=== PATIENT | female | born 1930 | race Caucasian/White ===

== ENCOUNTER → 2016-05-18 | Outpatient (CLI) | payer MEDICARE ==
[~2016-05-18] MED LIST: ASPI-587 PO; BACL20TA PO; CALC625T PO; IMIP25TA2 PO; LUTE20TA PO; LVT.05T PO; METO25TA2 PO; MIRA25TA PO; MU-V1TAB28 PO; OMG1KC PO; RLX60T PO; SPIR1TAB3 PO; SULI200T4 PO; VIT A PO; [UNRECOGNIZED DRUG - CODE] PO; [UNRECOGNIZED DRUG - CODE] PO; [UNRECOGNIZED DRUG - OTHER] PO; stool softener PO
[2016-05-18 09:56] LABS: BASOPHILS # (AUTO) 0.1 10^3/uL (0.0-0.1); BASOPHILS % (AUTO) 1 % (0-10); EOSINOPHILS # (AUTO) 0.1 10^3/uL (0.0-0.3); EOSINOPHILS % (AUTO) 1 % (0-10); LYMPHOCYTES # (AUTO) 1.1 X 10^3 (1.0-4.0); LYMPHOCYTES % (AUTO) 10 % (12-44); MEAN CORPUSCULAR HEMOGLOBIN 31 PG (25-34); MEAN CORPUSCULAR HGB CONC 33 G/DL (32-36); MEAN CORPUSCULAR VOLUME 95 FL (80-99); MEAN PLATELET VOLUME 10.7 FL (7.4-10.4); MONOCYTES # (AUTO) 1.1 X 10^3 (0.0-1.0); MONOCYTES % (AUTO) 10 % (0-12); NEUTROPHILS # (AUTO) 8.8 X 10^3 (1.8-7.8); NEUTROPHILS % (AUTO) 79 % (42-75); PLATELET COUNT 214 10^3/uL (130-400); RED BLOOD COUNT 4.84 10^6/uL (4.35-5.85); RED CELL DISTRIBUTION WIDTH 13.8 % (10.0-14.5); WHITE BLOOD COUNT 11.1 10^3/uL (4.3-11.0)
[2016-05-18 10:36] LABS: ALANINE AMINOTRANSFERASE 22 U/L (0-55); ALBUMIN 3.9 G/DL (3.2-4.5); ANION GAP 10 MMOL/L (5-14); ASPARTATE AMINO TRANSFERASE 23 U/L (5-34); BLOOD UREA NITROGEN 33 MG/DL (7-18); BUN/CREATININE RATIO 31; CALCIUM 9.1 MG/DL (8.5-10.1); CARBON DIOXIDE 27 MMOL/L (21-32); CHLORIDE 105 MMOL/L (98-107); CREATININE SERUM 1.06 MG/DL (0.60-1.30); GFR ESTIMATED 49; GLUCOSE 99 MG/DL (70-105); POTASSIUM 4.3 MMOL/L (3.6-5.0); SODIUM 142 MMOL/L (135-145); TOTAL PROTEIN 6.6 G/DL (6.4-8.2)
[2016-05-18 10:42] LABS: TROPONIN I < 0.30 NG/ML (<0.30)
== END ==
LOC: CARD 09:35
PROVIDERS: ATTEND Nurse Practitioner Family
DX: R07.89 Other chest pain (principal)
CPT/HCPCS: 36415; 80053; 82553; 84484; 85025; 93005

== ENCOUNTER → 2016-06-11 | Outpatient (CLI) | payer MEDICARE ==
[2016-06-11 10:03] LABS: BASOPHILS % (AUTO) 0 % (0-10); EOSINOPHILS # (AUTO) 0.2 10^3/uL (0.0-0.3); EOSINOPHILS % (AUTO) 2 % (0-10); LYMPHOCYTES # (AUTO) 1.2 X 10^3 (1.0-4.0); LYMPHOCYTES % (AUTO) 12 % (12-44); MEAN CORPUSCULAR HEMOGLOBIN 31 PG (25-34); MEAN CORPUSCULAR HGB CONC 33 G/DL (32-36); MEAN CORPUSCULAR VOLUME 94 FL (80-99); MEAN PLATELET VOLUME 10.3 FL (7.4-10.4); MONOCYTES % (AUTO) 10 % (0-12); NEUTROPHILS # (AUTO) 7.7 X 10^3 (1.8-7.8); NEUTROPHILS % (AUTO) 76 % (42-75); PLATELET COUNT 225 10^3/uL (130-400); RED CELL DISTRIBUTION WIDTH 13.9 % (10.0-14.5); RETICULOCYTE % 1.66 % (0.50-2.40); WHITE BLOOD COUNT 10.2 10^3/uL (4.3-11.0)
[2016-06-11 10:20] LABS: PATH WILL NEED TO REVIEW SMEAR PATH TO REVIEW
[2016-06-11 10:31] LABS: BAND NEUTROPHILS 4 %; BASOPHILS % (MANUAL) 0 %; EOSINOPHILS % (MANUAL) 3 %; LYMPHOCYTES % (MANUAL) 11 %; NEUTROPHILS % (MANUAL) 73 %; REACTIVE LYMPHOCYTES 1 %
== END ==
LOC: LAB 09:45
PROVIDERS: ATTEND Family Medicine
DX: D72.829 Elevated white blood cell count, unspecified (principal); R74.8 Abnormal levels of other serum enzymes
CPT/HCPCS: 36415; 84075; 85007; 85027; 85045

== ENCOUNTER → 2016-06-18 | Outpatient (CLI) | payer MEDICARE ==
--- NOTE | 2016-06-18 13:45 | Diagnostic Imaging Report ---
EXAMINATION: DEXA scan. INDICATION: Osteopenia. TECHNIQUE: Bone mineral density estimated based on dual energy radiography over the lumbar spine and femoral necks, was performed. FINDINGS: The lumbar spine T-score is 0.8. T score is -1 obtained over both femoral necks. IMPRESSION: Osteopenia. Dictated by: Dictated on workstation # [id number]
== END ==
LOC: RAD 08:55
PROVIDERS: ATTEND Nurse Practitioner Family
DX: M81.0 Age-related osteoporosis without current pathological fracture (principal)
CPT/HCPCS: 77080

== ENCOUNTER → 2016-07-21 | Outpatient (CLI) | payer MEDICARE, BC ==
[~2016-07-21] MED LIST changes: +CATHETER FLUSH 10 ML SYR IV PRN
--- NOTE | 2016-07-21 13:45 | Diagnostic Imaging Report ---
EXAMINATION: Whole body bone scan. TECHNIQUE: After the intravenous administration of 26 mCi of Technetium 99m MDP, whole body delayed phase bone scan images were obtained with lateral views of the head, neck, and chest regions. INDICATION: Back pain. Sacral fracture. FINDINGS: There is an intense area of increased uptake in the anterior left side of the pelvis which corresponds to a deformity in the left pubic body seen on the concurrent CT scan, suggestive of a late subacute fracture. There is mild nonspecific increased radiotracer uptake seen in the sacral ala. This is equivocal for an underlying fracture. A sclerotic line is seen on the corresponding CT scan which may suggest an age-indeterminate insufficiency fracture. There is prominent eccentric mild to moderate intensity of increased activity seen in the left side aspect of the spine at the thoracolumbar junction. This appears to correlate with significant degenerative changes on the correlating CT scan. No pattern of uptake to suggest metastatic disease is noted. Urinary tract excretion is seen. IMPRESSION: 1. Late subacute fracture in the left pubic body. 2. Mild increased tracer uptake within the sacral ala is nonspecific. There is question of age indeterminate insufficiency fractures in the sacral ala without displacement based on the concurrent CT scan. Correlate clinically and with an MRI of the sacrum for better evaluation, if needed. Dictated by: Dictated on workstation # [id number]
== END ==
LOC: CARD 09:17
PROVIDERS: ATTEND Family Medicine
DX: S32.10XA Unspecified fracture of sacrum, initial encounter for closed fracture (principal); X58.XXXA Exposure to other specified factors, initial encounter
CPT/HCPCS: 78306

== ENCOUNTER → 2016-07-21 | Outpatient (CLI) | payer MEDICARE, BC ==
[~2016-07-21] MED LIST changes: +IOHEXOL 350 MG/ML 100 ML (OMNIPAQUE 350) VIAL IV ONE; +NS 100 ML (IVPB) BAG IV ONE
[2016-07-21 10:00] LABS: CREATININE SERUM 1.09 MG/DL (0.60-1.30)
--- NOTE | 2016-07-21 11:32 | Diagnostic Imaging Report ---
PROCEDURE: CT abdomen and pelvis with contrast. TECHNIQUE: Multiple contiguous axial images were obtained through the abdomen and pelvis after administration of intravenous contrast. INDICATION: Recurrent UTI. 100 mL of Omnipaque 350 is administered intravenously. FINDINGS: The lung bases appear clear. The liver demonstrates a nonspecific 9 mm hypodense lesion in the left hepatic lobe, too small to characterize. Cholecystectomy clips are seen. Minimal prominence of the CBD is noted, expected after cholecystectomy. Small duodenal diverticulum abutting the undersurface of the pancreatic head is seen. In the uncinate process of the pancreas, there is a 7 mm cystic lesion with no enhancing component suggested. The spleen is not enlarged. The adrenal glands appear unremarkable. The kidneys have symmetric enhancement and contrast excretion. There are bilateral simple appearing cysts in the kidneys up to 1.3 cm in the lower pole of the left kidney. No hydronephrosis. The abdominal aorta is normal in caliber. No para-aortic significantly enlarged lymph nodes seen. There is a right periumbilical fat-containing ventral hernia with associated defect measuring 2.4 cm in transverse dimension and 1.7 cm craniocaudally. IN THE PELVIS: There is an air-fluid level seen within the urinary bladder with thickening of the posterior bladder wall. There is an indeterminate collection with an air-fluid level seen within the posterior aspect of the urinary bladder eccentric to the left side measuring 3.3 x 1.5 x 1.7 cm. This is abutting the upper left side aspect of the vaginal cuff. It is containing mostly air with minimal amount of fluid. It is inseparable from adjacent thickening in the sigmoid colon. The sigmoid colon demonstrates numerous diverticulosis. There is slight thickening in the left lateral pelvic fat and minimally prominent lymph nodes along the left internal iliac chain. No free peritoneal fluid. This is probably sequela of diverticulitis episode. 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 The collection described above could be a sinus tract related to the fistula or less likely could possibly relate to a colovaginal fistula. The osseous structures demonstrate prominent degenerative changes and scoliotic curvature in the lumbar spine. 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 There is also an adjacent indeterminate small fluid collection abutting the upper left side aspect of the vaginal cuff, favored to be outside the vagina with mainly air and small amount of fluid. This could be sequela of a small abscess, sinus tract or less likely colovaginal fistula. Correlate clinically. The findings were discussed with Dr. Richter at time of dictation. Dictated by: Dictated on workstation # [id number]
== END ==
LOC: RAD 09:22
PROVIDERS: ATTEND Urology
DX: N39.0 Urinary tract infection, site not specified (principal)
CPT/HCPCS: 36415; 74177; 82565; 84520

== ENCOUNTER → 2016-09-03 | Outpatient (CLI) | payer MEDICARE, BC ==
[~2016-09-03] MED LIST changes: -CATHETER FLUSH 10 ML SYR IV PRN; -IOHEXOL 350 MG/ML 100 ML (OMNIPAQUE 350) VIAL IV ONE; -NS 100 ML (IVPB) BAG IV ONE
[2016-09-03 12:49] LABS: PEP REPORT SEE PATH REPORT
[2016-09-03 13:09] LABS: ALBUMIN 3.9 GM/DL (3.2-4.5); BILIRUBIN,TOTAL 1.6 MG/DL (0.1-1.0); CALCIUM 9.1 MG/DL (8.5-10.1); CREATININE SERUM 1.03 MG/DL (0.60-1.30); MAGNESIUM 1.7 MG/DL (1.8-2.4); POTASSIUM 4.3 MMOL/L (3.6-5.0); TOTAL PROTEIN 7.1 GM/DL (6.4-8.2)
[2016-09-04 06:52] LABS: VITAMIN D 25-HYDROXY (TOTAL) 45 ng/mL (30-100)
[2016-09-04 07:19] LABS: TP PEP U 37.0 H MG/DL (0.1-15.0)
== END ==
LOC: LAB 12:21
PROVIDERS: ATTEND Internal Medicine
DX: M81.0 Age-related osteoporosis without current pathological fracture (principal)
CPT/HCPCS: 36415; 80053; 82306; 83735; 84155; 84165; 84166

== ENCOUNTER 2017-05-28 17:00 | Outpatient (RCR) | payer MEDICARE, BC ==
[~2017-05-28 17:00] MED LIST changes: +ACYC400T PO; +CHOL500044 PO; +DESL5TAB PO; +LACT1CAP8 PO; +LEVO1CAP11 PO; +LEVO50TA6 PO; +METO-387 PO; +MIRA50TA PO; +PANT40TA3 PO; +RALO60TA12 PO; +TERI202.4P SC; +VIT1CAPS44 PO
[2017-06-04] MEDS ORDERED: TRIM100T PO (13:33)
[2017-06-04] MEDS ORDERED: EST30C VG (13:33)
[2017-06-04] MEDS ORDERED: CRAN450T9 PO (15:11)
[2017-06-04] MEDS ORDERED: NF-SOLIF5T PO (15:11)
[2017-06-04] MEDS ORDERED: ASCO-262 PO (15:11)
[2017-06-04] MEDS ORDERED: DOCU250C11 PO (15:11)
== END 2017-06-23 | disposition home or self-care (01) ==
LOC: CR3 17:00
PROVIDERS: ATTEND Family Medicine
DX: Z29.8 Encounter for other specified prophylactic measures (principal)

== ENCOUNTER 2017-06-04 13:19 | Observation (INO) | payer MEDICARE, BC ==
[~2017-06-04] VITALS: Ht 160 cm; Wt 58.7 kg
[2017-06-04] MEDS ORDERED: NS IV 1000 ML 1,000 ML IV SCH (13:30)
[2017-06-04] MEDS ORDERED: EST30C VG (13:33)
[2017-06-04] MEDS ORDERED: TRIM100T PO (13:33)
[2017-06-04 13:38] LABS: BASOPHILS % (AUTO) 0 % (0-10); EOSINOPHILS # (AUTO) 0.1 10^3/uL (0.0-0.3); EOSINOPHILS % (AUTO) 1 % (0-10); HEMATOCRIT 37 % (35-52); HEMOGLOBIN 12.2 G/DL (11.5-16.0); LYMPHOCYTES # (AUTO) 1.2 X 10^3 (1.0-4.0); LYMPHOCYTES % (AUTO) 12 % (12-44); MEAN CORPUSCULAR HEMOGLOBIN 27 PG (25-34); MEAN CORPUSCULAR HGB CONC 33 G/DL (32-36); MEAN CORPUSCULAR VOLUME 81 FL (80-99); MEAN PLATELET VOLUME 10.5 FL (7.4-10.4); MONOCYTES # (AUTO) 1.6 X 10^3 (0.0-1.0); MONOCYTES % (AUTO) 17 % (0-12); NEUTROPHILS # (AUTO) 6.7 X 10^3 (1.8-7.8); NEUTROPHILS % (AUTO) 70 % (42-75); PLATELET COUNT 237 10^3/uL (130-400); RED CELL DISTRIBUTION WIDTH 21.1 % (10.0-14.5); WHITE BLOOD COUNT 9.6 10^3/uL (4.3-11.0)
--- NOTE | 2017-06-04 13:39 | ED General ---
General Chief Complaint: General Problems/Pain Stated Complaint: URINARY ISSUES,DEHYDRATED Source of Information: Patient Exam Limitations: No Limitations History of Present Illness Date Seen by Provider: Jun 04, 2017 Time Seen by Provider: 13:35 Initial Comments Reduced urine output, poor renal function and high white blood cell count done yesterday at Dr. Richter's office. His office contacted the patient's primary care provider Dr. Macdonald who referred her to the emergency room, according to the patient. She denies fevers chills or dysuria. She states that she had a urine sample done in Dr. Richter's office yesterday and was told it was normal. She denies fevers or chills. She states that on Wednesday however (05/30/17) she did feel generally poorly but that seems to have resolved. She denies a cough shortness of breath or any pains, specifically no abdominal pain. 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 The patient's sister is with her and states that she seems a little confused so I cannot confirm the accuracy of these statements. Timing/Duration: 1-2 Days Severity: Moderate Associated Systoms: No Chest Pain, No Cough, No Diaphoresis, No Fever/Chills, No Headaches, No Loss of Appetite, No Malaise, No Nausea/Vomiting Allergies and Home Medications Allergies Coded Allergies: Penicillins (Verified Allergy, Unknown, 04/08/17) Sulfa (Sulfonamide Antibiotics) (Verified Allergy, Unknown, 04/08/17) celecoxib (Verified Allergy, Unknown, 04/08/17) oxybutynin (Verified Allergy, Unknown, 04/08/17) peanut (Verified Allergy, Unknown, 04/08/17) Home Medications Ascorbate Calcium 500 Mg Tablet, 500 MG PO 1800, (Reported) Baclofen 20 Mg Tablet, 20 MG PO 1800, (Reported) Cholecalciferol (Vitamin D3) 5,000 Unit Tablet, 5,000 UNIT PO 1800, (Reported) Cranberry Fruit 450 Mg Tablet, 450 MG PO BID, (Reported) Desloratadine 5 Mg Tablet, 10 MG PO DAILY, (Reported) Docusate Sodium 250 Mg Capsule, 250 MG PO DAILY PRN for CONSTIPATION-1ST LINE, ( Reported) Estrogens Conjugated 30 Gm Cr, 0.5 GM VG MoWeFr, (Reported) Lactobacillus Acidophilus 1 Each Capsule, 1 CAP PO 1800, (Reported) Levomefolate/B6/B12/Algal Oil 1 Each Capsule, 1 CAP PO BID, (Reported) Levothyroxine Sodium 50 Mcg Tablet, 50 MCG PO HS, (Reported) Metoprolol Succinate 25 Mg Tab.er.24h, 25 MG PO BID, (Reported) Mirabegron 50 Mg Tab.er.24h, 50 MG PO DAILY, (Reported) Pantoprazole Sodium 40 Mg Tablet.dr, 40 MG PO DAILY, (Reported) Raloxifene HCl 60 Mg Tablet, 60 MG PO DAILY, (Reported) Solifenacin Succinate 5 Mg Tablet, 5 MG PO HS, (Reported) Spironolact/Hydrochlorothiazid 1 Each Tablet, 1 TAB PO DAILY, (Reported) Sulindac 200 Mg Tablet, 200 MG PO BID WITH MEALS, (Reported) Teriparatide 600 Mcg/2.4 Ml Syr, 20 MCG SC DAILY, (Reported) Trimethoprim 100 Mg Tablet, 100 MG PO DAILY, (Reported) Vit C/E/Zn/Coppr/Lutein/Zeaxan 1 Each Capsule, 1 CAP PO BID, (Reported) Patient Home Medication List Home Medication List Reviewed: Yes Review of Systems Constitutional: see HPI; No chills, No fever EENTM: see HPI Respiratory: see HPI; No cough Gastrointestinal: No RUQ, No LUQ, No RLQ, No LLQ; no symptoms reported; No abdominal pain, No constipation, No diarrhea, No dysphagia, No hematemesis, No melena, No nausea, No vomiting Genitourinary: see HPI, decreased output; No dysuria; incontinence Musculoskeletal: no symptoms reported Skin: no symptoms reported Psychiatric/Neurological: No Symptoms Reported Hematologic/Lymphatic: No Symptoms Reported Past Nuliisu-Pffsiv-Tztpwe Hx Patient Social History Type Used: Cigarettes Recent Foreign Travel: No Contact w/Someone Who Travel: No Immunizations Up To Date Date of Pneumonia Vaccine: Nov 22, 2008 Date of Influenza Vaccine: Dec 23, 2016 Seasonal Allergies Seasonal Allergies: Yes Past Medical History Surgeries: Yes Abdominal, Bladder Surgery, Eye Surgery, Gallbladder, Hysterectomy, Orthopedic, Thyroidectomy Respiratory: No Cardiac: Yes Hypertension Neurological: No Genitourinary: Yes (colovesicular fistula) Bladder Infection Gastrointestinal: Yes Gastroesophageal Reflux Musculoskeletal: Yes Fractures Endocrine: Yes Hypothyroidsim HEENT: Yes Cataract Psychosocial: No Blood Disorders: Yes Adverse Reaction/Blood Tranf: No Family Medical History No Pertinent Family Hx Physical Exam Vital Signs Vital Signs - First Documented 06/04/17 13:25 Temp 96.6 Pulse 91 Resp 16 B/P (MAP) 120/81 (94) Pulse Ox 97 O2 Delivery Room Air Capillary Refill : General Appearance: No Apparent Distress, WD/WN, Other (Elderly appearing, alert, very talkative and pleasant and seems in no acute distress) Eyes: Bilateral Eye Normal Inspection, Bilateral Eye PERRL, Bilateral Eye EOMI HEENT: PERRL/EOMI, TMs Normal Neck: Full Range of Motion, Normal Inspection Respiratory: No Accessory Muscle Use, No Respiratory Distress Cardiovascular: Regular Rate, Rhythm, Normal Peripheral Pulses Gastrointestinal: Normal Bowel Sounds, Non Tender, Soft Extremity: Normal Capillary Refill, Normal Inspection Neurologic/Psychiatric: Alert, Oriented x3, No Motor/Sensory Deficits Skin: Normal Color, Warm/Dry Focused Exam Lactate Level 06/04/17 13:50: Lactic Acid Level 1.19 Lactic Acid Level Progress/Results/Core Measures Suspected Sepsis SIRS Temperature: Pulse: Respiratory Rate: Laboratory Tests 06/04/17 13:28: White Blood Count 9.6 Blood Pressure / Mean: 06/04/17 13:50: Lactic Acid Level 1.19 Laboratory Tests 06/04/17 13:28: Creatinine 2.02H, Platelet Count 237, Total Bilirubin 0.9 Results/Orders Lab Results Laboratory Tests Test 06/04/17 13:28 06/04/17 13:50 06/04/17 14:42 Range/Units White Blood Count 9.6 4.3-11.0 10^3/uL Red Blood Count 4.50 4.35-5.85 10^6/uL Hemoglobin 12.2 11.5-16.0 G/DL Hematocrit 37 35-52 % Mean Corpuscular Volume 81 80-99 FL Mean Corpuscular Hemoglobin 27 25-34 PG Mean Corpuscular Hemoglobin Concent 33 32-36 G/DL Red Cell Distribution Width 21.1 H 10.0-14.5 % Platelet Count 237 130-400 10^3/uL Mean Platelet Volume 10.5 H 7.4-10.4 FL Neutrophils (%) (Auto) 70 42-75 % Lymphocytes (%) (Auto) 12 12-44 % Monocytes (%) (Auto) 17 H 0-12 % Eosinophils (%) (Auto) 1 0-10 % Basophils (%) (Auto) 0 0-10 % Neutrophils # (Auto) 6.7 1.8-7.8 X 10^3 Lymphocytes # (Auto) 1.2 1.0-4.0 X 10^3 Monocytes # (Auto) 1.6 H 0.0-1.0 X 10^3 Eosinophils # (Auto) 0.1 0.0-0.3 10^3/uL Basophils # (Auto) 0.0 0.0-0.1 10^3/uL Erythrocyte Sedimentation Rate 38 H 0-30 MM/HR Sodium Level 132 L 135-145 MMOL/L Potassium Level 5.5 H 3.6-5.0 MMOL/L Chloride Level 102 98-107 MMOL/L Carbon Dioxide Level 18 L 21-32 MMOL/L Anion Gap 12 5-14 MMOL/L Blood Urea Nitrogen 51 H 7-18 MG/DL Creatinine 2.02 H 0.60-1.30 MG/DL Estimat Glomerular Filtration Rate 23 BUN/Creatinine Ratio 25 Glucose Level 121 H 70-105 MG/DL Calcium Level 8.9 8.5-10.1 MG/DL Total Bilirubin 0.9 0.1-1.0 MG/DL Aspartate Amino Transf (AST/SGOT) 30 5-34 U/L Alanine Aminotransferase (ALT/SGPT) 52 0-55 U/L Alkaline Phosphatase 182 H 40-136 U/L Total Protein 6.9 6.4-8.2 GM/DL Albumin 3.8 3.2-4.5 GM/DL Lactic Acid Level 1.19 0.50-2.00 MMOL/L Urine Color YELLOW Urine Clarity CLEAR Urine pH 6 5-9 Urine Specific [place] 1.010 L 1.016-1.022 Urine Protein NEGATIVE NEGATIVE Urine Glucose (UA) NEGATIVE NEGATIVE Urine Ketones NEGATIVE NEGATIVE Urine Nitrite NEGATIVE NEGATIVE Urine Bilirubin NEGATIVE NEGATIVE Urine Urobilinogen NORMAL NORMAL MG/DL Urine Leukocyte Esterase NEGATIVE NEGATIVE Urine RBC (Auto) 1+ H NEGATIVE Urine RBC 0-2 /HPF Urine WBC NONE /HPF Urine Squamous Epithelial Cells 0-2 /HPF Urine Crystals NONE /LPF Urine Bacteria NEGATIVE /HPF Urine Casts NONE /LPF Urine Mucus NEGATIVE /LPF Urine Culture Indicated NO My Orders Orders - MEGAN CHAKRABORTY PLAY READER Cbc With Automated Diff (06/04/17 13:30) Comprehensive Metabolic Panel (06/04/17 13:30) Blood Culture (06/04/17 13:30) Lactic Acid Analyzer (06/04/17 13:30) Ua Culture If Indicated (06/04/17 13:30) Chest Pa/Lat (2 View) (06/04/17 13:30) Ns Iv 1000 Ml (Sodium Chloride 0.9%) (06/04/17 13:30) Saline Lock/Iv-Start (06/04/17 13:59) Ekg Tracing (06/04/17 13:59) Ct Abdomen/Pelvis Wo (06/04/17 14:01) Erythrocyte Sedimentation Rate (06/04/17 14:10) Anti Streptolysin O Titer (06/04/17 14:10) Vital Signs/I&O 06/04/17 06/04/17 06/04/17 06/04/17 13:25 14:37 15:27 15:40 Temp 96.6 96.9 96.7 Pulse 91 77 66 77 Resp 16 16 18 18 B/P (MAP) 120/81 (94) 98/58 (71) 111/53 (71) 132/60 (84) Pulse Ox 97 96 99 99 O2 Delivery Room Air Room Air Room Air Room Air 06/04/17 06/04/17 06/04/17 06/04/17 16:35 17:32 19:00 19:50 Temp 98.2 Pulse 71 75 86 Resp 16 B/P (MAP) 132/60 (84) Pulse Ox 97 O2 Delivery Room Air Room Air Capillary Refill : Diagnostic Imaging Diagonstic Imaging: Xray Plain Films/CT/US/NM/MRI: chest Comments NAME: MIGUEL ZAVALA [facility] REC#: [id number] PT STATUS: REG ER : 1930 PHYSICIAN: MEGAN CHAKRABORTY APRN ADMIT DATE: 06/04/17/ER Draft Date of Exam:06/04/17 CHEST PA/LAT (2 VIEW) INDICATION: Dehydration, urinary incontinence. FINDINGS: The lungs are clear. The heart size and vascularity are within normal limits. There is no effusion or pneumothorax. IMPRESSION: Negative. Dictated on workstation # [id number] Dict: 06/04/17 1358 Trans: 06/04/17 1359 [id number] Interpreted by: JULIA WOODY Electronically signed by: Departure Communication (Admissions) 1400- I did receive a copy of labs from yesterday drawn. The macula. This shows a white blood cell count of 16.8, hemoglobin 12.1, 86% neutrophils. She also had a creatinine yesterday of 1.8, GFR of 28, BUN of 49. On the of this month, 3 days ago, creatinine was 1.0, GFR 57, BUN 25. She is on Aldactazide 25/25 mg daily Impression Primary Impression: Acute renal failure Disposition: ADMITTED INPATIENT Condition: Stable Admissions Decision to Admit Reason: Admit from ER (General) Decision to Admit/Date: Jun 04, 2017 Time/Decision to Admit Time: 15:00 Departure-Patient Inst. Referrals: JULIOCESAR MACDONALD DO (PCP/Family) Primary Care Physician MEGAN CHAKRABORTY APRN Jun 04, 2017 13:39
[2017-06-04 13:58] LABS: ALBUMIN 3.8 GM/DL (3.2-4.5); BILIRUBIN,TOTAL 0.9 MG/DL (0.1-1.0); CALCIUM 8.9 MG/DL (8.5-10.1); CREATININE SERUM 2.02 MG/DL (0.60-1.30); POTASSIUM 5.5 MMOL/L (3.6-5.0); TOTAL PROTEIN 6.9 GM/DL (6.4-8.2)
--- NOTE | 2017-06-04 14:00 | Diagnostic Imaging Report ---
INDICATION: Dehydration, urinary incontinence. FINDINGS: The lungs are clear. The heart size and vascularity are within normal limits. There is no effusion or pneumothorax. IMPRESSION: Negative. Dictated by: Dictated on workstation # [id number]
[2017-06-04 14:37] VITALS: BP 98/58
--- NOTE | 2017-06-04 14:37 | Diagnostic Imaging Report ---
PROCEDURE: CT abdomen and pelvis without contrast. TECHNIQUE: Multiple contiguous axial images were obtained through the abdomen and pelvis without the use of intravenous contrast. INDICATION: Decreased urinary output over 5 days despite fluid load, has history of long-standing urinary incontinence. Exam compared with study 07/21/2016. There is some fluid within the urinary bladder however the volume is relatively small and its clearly not distended. There is no abdominal pelvic ascites. No basilar pleural fluid and the visualized lower lobe showed no findings of edema. There is no evidence of edema or congestion of the abdominal pelvic subcutaneous fat nor the mesentery or retroperitoneal fat. The gallbladder is surgically absent. The spleen, adrenals and pancreas are unremarkable. There are no opaque urinary tract calculi. There is no perinephric or periureteric edema. There is no bowel obstruction and there was no focal inflammatory process. Uterus surgically absent. There is no adnexal lesion. No pneumatosis or free gas. IMPRESSION: No third space fluids, nondistended urinary bladder. No obstructive features, inflammatory process or acute abnormalities identified. Dictated by: Dictated on workstation # [id number]
[2017-06-04 14:53] LABS: BILIRUBIN,URINE NEGATIVE (NEGATIVE); CLARITY,URINE CLEAR; COLOR,URINE YELLOW; GLUCOSE, URINE (UA) NEGATIVE (NEGATIVE); KETONES,URINE NEGATIVE (NEGATIVE); LEUKOCYTE ESTERASE ,URINE NEGATIVE (NEGATIVE); NITRITE,URINE NEGATIVE (NEGATIVE); PH,URINE 6 (5-9); PROTEIN,URINE NEGATIVE (NEGATIVE); UROBILINOGEN,URINE NORMAL (NORMAL)
[2017-06-04 15:03] LABS: BACTERIA,URINE NEGATIVE /HPF; RBC,URINE 0-2 /HPF; SQUAMOUS EPITHELIAL CELL,UR 0-2 /HPF
[2017-06-04] MEDS ORDERED: DOCU250C11 PO (15:11)
[2017-06-04] MEDS ORDERED: ASCO-262 PO (15:11)
[2017-06-04] MEDS ORDERED: NF-SOLIF5T PO (15:11)
[2017-06-04] MEDS ORDERED: CRAN450T9 PO (15:11)
[2017-06-04 15:40] VITALS: BP 132/60
[2017-06-04] MEDS ORDERED: CATHETER FLUSH 10 ML SYR IV PRN (16:00)
[2017-06-04] MEDS: NS IV 1000 ML 1,000 ML IV SCH (16:12)
[2017-06-04 19:50] VITALS: BP 132/60
[2017-06-05] VITALS: BP 116/56
[2017-06-05] MEDS: NS IV 1000 ML 1,000 ML IV SCH ×2 (00:14→08:23)
[2017-06-05 04:00] VITALS: BP 117/59
[2017-06-05 06:14] LABS: BASOPHILS % (AUTO) 0 % (0-10); EOSINOPHILS # (AUTO) 0.3 10^3/uL (0.0-0.3); EOSINOPHILS % (AUTO) 4 % (0-10); HEMATOCRIT 32 % (35-52); HEMOGLOBIN 10.5 G/DL (11.5-16.0); LYMPHOCYTES % (AUTO) 14 % (12-44); MEAN CORPUSCULAR HEMOGLOBIN 27 PG (25-34); MEAN CORPUSCULAR HGB CONC 33 G/DL (32-36); MEAN CORPUSCULAR VOLUME 82 FL (80-99); MEAN PLATELET VOLUME 10.7 FL (7.4-10.4); MONOCYTES # (AUTO) 1.1 X 10^3 (0.0-1.0); MONOCYTES % (AUTO) 15 % (0-12); NEUTROPHILS # (AUTO) 4.6 X 10^3 (1.8-7.8); NEUTROPHILS % (AUTO) 66 % (42-75); PLATELET COUNT 212 10^3/uL (130-400); RED BLOOD COUNT 3.91 10^6/uL (4.35-5.85); RED CELL DISTRIBUTION WIDTH 21.6 % (10.0-14.5)
[2017-06-05 06:33] LABS: CALCIUM 8.2 MG/DL (8.5-10.1); CREATININE SERUM 1.17 MG/DL (0.60-1.30); POTASSIUM 5.3 MMOL/L (3.6-5.0)
[2017-06-05 08:00] VITALS: BP 114/64
--- NOTE | 2017-06-05 11:49 | Short Stay Summary-Hospitalist ---
History of Present Illness HPI/Chief Complaint The patient is an 86-year-old white female known to me for some years now. She presented to the emergency room yesterday with complaints of lethargy and mild confusion. She had been seen the day prior at Dr. Perez's office. He apparently performed a UA which she stated was negative. He also ran some chemistries which returned with abnormalities. He then spoke to Dr. Macdonald her primary care provider who referred her to the emergency room. 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 The patient's sister accompanied her to the emergency room and reported her to be a bit confused. She made it very clear that she was not willing to stay very long as she had a previously planned family trip to the [facility] and a mini liner trip down the [place] [facility] and [facility]. She states that she is feeling considerably better today. In the emergency room her laboratory showed a creatinine at 2.02 which is now declined with hydration to 1.17. Her potassium at presentation was 5.5 and is now 5.3 and her sodium was 132 and is now 136. She had a CT scan of the abdomen and pelvis which was negative. It is noted that she takes Aldactazide which may have had a part in both the hydration state and the potassium. Date Seen 06/05/17 Time Seen by Provider: 11:43 Attending Physician Jamel Guzman MD PCP Juliocesar Macdonald DO Referring Physician Date of Admission Jun 04, 2017 at 15:13 Home Medications & Allergies Home Medications Reviewed patient Home Medication Reconciliation performed by pharmacy medication reconciliations order entry technician and/or nursing. Patients Allergies have been reviewed. Allergies Allergies Coded Allergies Penicillins (Verified Allergy, Unknown, 04/08/17) Sulfa (Sulfonamide Antibiotics) (Verified Allergy, Unknown, 04/08/17) celecoxib (Verified Allergy, Unknown, 04/08/17) oxybutynin (Verified Allergy, Unknown, 04/08/17) peanut (Verified Allergy, Unknown, 04/08/17) Past Itpidwb-Lrntbi-Nfugdf Hx Past Med/Social Hx: Reviewed Nursing Past Med/Soc Hx Patient Social History Alcohol Use: Denies Use Recreational Drug Use: No Smoking Status: Current Someday Smoker Type Used: Cigarettes Physical Abuse Screen: No Sexual Abuse: No Recent Foreign Travel: No Contact w/other who traveled: No Recent Hopitalizations: No Recent Infectious Disease Expo: No Immunizations Up To Date Date of Pneumonia Vaccine: Nov 22, 2008 Date of Influenza Vaccine: Dec 23, 2016 Seasonal Allergies Seasonal Allergies: Yes Past Medical History Surgeries: Abdominal, Bladder Surgery, Eye Surgery, Gallbladder, Hysterectomy, Orthopedic, Thyroidectomy Cardiac: Hypertension : No Menopausal Genitourinary: Bladder Infection, Renal Failure Gastrointestinal: Gastroesophageal Reflux, Diverticulosis, Ulcer, Gall Bladder Disease Musculoskeletal: Fractures Endocrine: Hypothyroidsim HEENT: Cataract, Macular Degeneration History of Blood Disorders: Yes Adverse Reaction to Blood Rubio: No Family History No Pertinent Family Hx Review of Systems Constitutional: see HPI EENTM: hearing loss Respiratory: no symptoms reported Cardiovascular: no symptoms reported Gastrointestinal: no symptoms reported Genitourinary: no symptoms reported Musculoskeletal: muscle weakness Skin: no symptoms reported Psychiatric/Neurological: Weakness, Other (mild confusion admission) Physical Exam Physical Exam Vital Signs Vital Signs - First Documented 06/04/17 13:25 Temp 96.6 Pulse 91 Resp 16 B/P (MAP) 120/81 (94) Pulse Ox 97 O2 Delivery Room Air Capillary Refill : Less Than 3 Seconds General Appearance: No Apparent Distress, WD/WN Eyes: Bilateral Eye Normal Inspection HEENT: PERRL/EOMI, Normal ENT Inspection, Pharynx Normal Neck: Full Range of Motion, Normal Inspection, Non Tender, Supple, Carotid Bruit Respiratory: Chest Non Tender, Lungs Clear, Normal Breath Sounds, No Accessory Muscle Use, No Respiratory Distress Cardiovascular: Regular Rate, Rhythm, No Edema, No Gallop, No JVD, No Murmur, Normal Peripheral Pulses Back: Normal Inspection, No CVA Tenderness, No Vertebral Tenderness Extremity: Normal Capillary Refill, Normal Inspection, Normal Range of Motion, Non Tender, No Calf Tenderness, No Pedal Edema Neurologic/Psychiatric: Alert, Oriented x3, No Motor/Sensory Deficits, Normal Mood/Affect Skin: Normal Color, Warm/Dry Lymphatic: No Adenopathy Results Results/Procedures Labs Laboratory Tests 06/04/17 13:28 06/05/17 05:50 Patient resulted labs reviewed. Short Stay Diagnosis Discharge Diagnosis-Short Stay Admission Diagnosis 1.dehydration/hyperkalemia. 2.hypertension. Final Discharge Diagnosis 1.dehydration/hyperkalemia. 2.hypertension Conclusion Plan Return home with the present medications. Clinical Quality Measures DVT/VTE Risk/Contraindication: Risk Factor Score Per Nursin RFS Level Per Nursing on Admit: 2=Moderate Copy Copies To 1: JULIOCESAR MACDONALD RODNEY K MD Jun 05, 2017 11:49
[2017-06-05 12:00] VITALS: BP 146/70
--- NOTE | 2017-06-05 12:12 | Discharge Instructions ---
Discharge Instructions Patient Instructions Patient Instructions: Resume medications as listed on the discharge sequence. Touch base with your provider relative to the question of continuing your Aldactazide. Have a great time on your [place] Activity & Diet Discharge Diet: Eat Small Frequent Meals Activity as Tolerated: Yes ANIBAL ABRAHAM MD Jun 05, 2017 12:12
--- OUTSIDE RECORDS SUMMARY | 2017-06-06 07:51 | XMS REPORT | Continuity of Care Document ---
Author Author [employer] Organization [facility] Address Unknown Phone Unavailable Care Team Providers Care Career Development Counselor Name Role Phone [employer] Unavailable Unavailable Problems Medications Allergies, Adverse Reactions, Alerts Immunizations Results Vital Signs Encounters Location Location Details Encounter Type Encounter Number Reason For Visit Attending Provider ADM Date DC Date Status Source [place] SERIES [id number] SHERMAN COYLE 10/13/20162016 Active [facility] OUTPATIENT [id number] 10/19/2016 Active [facility] OUTPATIENT [id number] SHERMAN COYLE 10/21/20162016 Active [facility] OUTPATIENT [id number] HSERMAN COYLE 10/21/20162016 Active [facility] OUTPATIENT [id number] SHERMAN COYLE 11/06/2016 Active [facility] INPATIENT [id number] SHERMAN COYLE 11/13/20162016 Active [facility] OUTPATIENT [id number] SHERMAN COYLE 11/27/2016 Active [facility] INPATIENT [id number] ALLY KING 12/03/2016 12/10/2016 Active [facility] OUTPATIENT [id number] WILLA GLORIA 12/07/2016 Active [facility] OUTPATIENT [id number] WILLA GLORIA 12/21/20162016 Active [facility] SPECIMEN [id number] WILLA GLORIA 01/04/20172016 Active [facility] OP SURGERY [id number] DANA KAUR 03/02/20172017 Active [facility] SPECIMEN [id number] WILLA GLORIA 05/31/20172017 Active [facility] O WILLA GLORIA Active [facility] OP SURGERY [id number] DANA KAUR Active [facility] Procedures Plan of Care Social History Assessment and Plan Family History Advance Directives Functional Status
--- OUTSIDE RECORDS SUMMARY | 2017-06-06 07:51 | XMS REPORT | Clinical Summary ---
Author Author [facility] Organization [facility] Address Unknown Phone Unavailable Care Team Providers Care Power Press Supervisor Name Role Phone Boris Richter MD 21 Sathya Macdonald MD PCP Source Comments Some departments are not documenting in the electronic medical record. If you do not see the information that you expected, contact Release of Information in the Health Information Management department at [phone] for further assistance in locating additional records.[facility] Allergies Active Allergy Reactions Severity Noted Date Comments Celecoxib HIVES Medium 01/07/2015 Levofloxacin HIVES Medium 10/05/2016 Peanut HIVES Medium 10/05/2016 Penicillins HIVES Medium 10/05/2016 Sulfa (Sulfonamide HIVES Medium 10/05/2016 Antibiotics) Current Medications Prescription Sig. Disp. Refills Start End Date Status Date levothyroxine (SYNTHROID) Take 50 mcg by mouth at Active 50 mcg tablet bedtime daily. metoprolol XL (TOPROL XL) Take 25 mg by mouth twice Active 25 mg extended release daily. tablet raloxifene (EVISTA) 60 mg Take 60 mg by mouth daily Active tablet before breakfast. teriparatide(+) (FORTEO) Inject 20 mcg under the Active 20 mcg/dose - 600 mcg/2.4 skin daily. mL pnij injection pen desloratadine(+) Take 5 mg by mouth daily. Active (CLARINEX) 5 mg tablet Lacto.acidophilus-Bif.ani Chew 1 tablet by mouth at Active malis 2 billion cell chew bedtime daily. Docusate Sodium 250 mg Take 1 capsule by mouth Active cap daily. Vitamin A-Vitamin C-Vit Take 2 capsules by mouth Active E-Min (PRESERVISION daily. AREDS) cap Cholecalciferol (Vitamin Take 5,000 Units by mouth Active D3) 5,000 unit tab daily. pantoprazole DR Take 1 tablet by mouth 90 tablet 1 10/29/19 Active (PROTONIX) 40 mg tablet twice daily. 17 spironolactone-hydrochlor Take 1 tablet by mouth Active othiazide (ALDACTAZIDE) every morning. 25-25 mg tablet sulindac (CLINORIL) 200 Take 200 mg by mouth Active mg tablet twice daily. Take with food. mirabegron(+) ER Take 1 tablet by mouth 90 tablet 3 01/22/20 Active (MYRBETRIQ) 50 mg daily. Indications: 17 tabletIndications: BLADDER HYPERACTIVITY BLADDER HYPERACTIVITY Cranberry Extract Take by mouth. Active (CRANBERRY CONCENTRATE) 500 mg cap VIT A/VIT C/VIT Take by mouth. Active E/ZINC/COPPER (PRESERVISION AREDS PO) estrogen (PREMARIN) 25mg Apply 3 drops into nose Active in NS 30mL nasal drops as directed three times daily. solifenacin(+) (VESICARE) Take 5 mg by mouth daily. Active 5 mg tablet trimethoprim (TRIMPEX) Take 100 mg by mouth at Active 100 mg tablet bedtime daily. MECOBALAMIN/L-MEFOLATE/B6 Take by mouth. Active PHOS (METANX PO) CEPHALEXIN PO Take by mouth. Active baclofen (LIORESAL) 20 mg Take 20 mg by mouth Active tablet daily. nystatin (MYCOSTATIN) Apply topically to 15 g 1 11/07/19 06/01/19 Discontin 100,000 unit/g topical affected area as Needed 17 18 ued cream (BID and PRN to perineum PRN after BM/void). acetaminophen (TYLENOL) Take 1,000 mg by mouth 06/01/19 Discontin 500 mg tablet every 4 hours as needed 18 ued for Pain. Max of 4,000 mg of acetaminophen in 24 hours. diphenhydrAMINE Take 1 capsule by mouth 30 capsule 12/11/19 06/01/19 Discontin (BENADRYL) 25 mg capsule at bedtime as needed. 17 18 ued potassium chloride SR Take 2 tablets by mouth 90 tablet 3 12/11/19 06/01/19 Discontin (K-DUR) 20 mEq tablet daily. Take with a meal 17 18 ued and a full glass of water. MELATONIN PO Take 5 mg by mouth. 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 Not consistent with recurrent fistula, but more consistent with preoperative voiding issues. -- 03/01/17: Improvement in symptoms of urgency and urge incontinence with Mirabegron 50 mg. Ms. Clarke is not interested in additional therapies at this time. -- 05/31/17: Difficult historian. Symptoms globally consistent. LUTS/Mixed urinary incontinence being managed by Dr. Richter. --> Pt will likely benefit from UDS, but will leave this to discretion of Dr. Richter. L ast Assessment & Plan: Mrs Clarke is 86F w/ a complex urologic hx to include both colovaginal and vaginovesical fistula repairs. She continue endorse bothersome PAZ of unknown etiology. A fistula recurrence is unlikely as prior cystograms have been negative. Her bladder was notably of small volume, and this is may in part be a source of her ongoing complaints. UDS may be insightful but she has declined additional studies at this institution. Of note, she is actively considering a urethral sling to treat her stress incontinence. Post void residual today normal. UCx sent to r/o infection as a source of urgency/incontinence -- Recommending UDS prior to additional treatments; her preference is to obtain future studies w/ Dr. 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 Cesar Howe Hydrodistention, suprapubic catheter, mariel bladder neck suspension, anterior posterior repair, vaginal apical repair, bilateral sacral spinalis fixation November 28, 2009-Maame Jimenez-Dr. Cesar Howe Recurrent prolapse Transabdominal suspension vagina and enterocelectomy, bowel injury-repaired L ast Assessment & Plan: Pelvic exam October 05, 2016-no prolapse noted Defer pessary at this time secondary to fistula and large volume of stool leakage Diverticulitis of intestine 10/08/2016 Last Assessment & Plan: Referred to Dr Leon for management FU with after consultation with Dr Leon Vaginal atrophy 10/08/2016 Last Assessment & Plan: Recommend estrace cream ~ reviewed application and handout given Avoid douching Mixed urge and stress incontinence 10/08/2016 Overview: Wearing 10 pads/day Last Assessment & Plan: Hold on OAB medications at this time Continue Keflex 250mg QD for now Fistula 10/08/2016 Overview: Large volume stool leakage from vagina L ast Assessment & Plan: Refer to Dr Leon Resolved Problems Problem Noted Date Resolved Date Melena 10/21/2016 10/28/2016 Overview: Added automatically from request for surgery [id number] Encounters Date Type Specialty Care Team Description 06/03/2017 Telephone Urology Darvin Swenson MD Results 06/03/2017 Orders Only Urology Darvin Swenson MD Gross hematuria ( Primary Dx) 05/31/2017 Hospital Lab Darvin Swenson MD Unspecified urinary Encounter incontinence 05/31/2017 Office Visit Urology Darvin Swenson MD Urinary incontinence, unspecified type (Primary Dx); Colovesical fistula from Last 3 Months Family History Medical History Relation Name Comments Cancer Brother Kidney Cancer Brother Heart Attack Father Cancer Mother Diabetes Mother Hypertension Mother Cancer Sister Relation Name Status Comments Brother Father Mother Sister Social History Tobacco Use Types Packs/Day Years Used Date Former Smoker Cigarettes 1 46 Quit: 06/05/1998 Smokeless Tobacco: Never Used Alcohol Use Drinks/Week oz/Week Comments Yes 1 Glasses of 1.8 2 drinks a week wine 2 Standard drinks or equivalent Sex Assigned at Date Recorded Not on file Last Filed Vital Signs Vital Sign Reading Time Taken Blood Pressure 103/64 05/31/2017 1:27 PM CDT Pulse 87 05/31/2017 1:27 PM CDT Temperature 36.6 C (97.9 F) 03/02/2017 3:15 PM 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 Respiratory Rate 16 11/27/2016 12:43 PM CDT Oxygen Saturation 94% 03/02/2017 3:35 PM 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 Inhaled Oxygen - - Concentration Weight 60 kg (132 lb 3.2 oz) 05/31/2017 1:27 PM CDT Height 161.3 cm (5' 3.5") 05/31/2017 1:27 PM CDT Body Mass Index 23.05 05/31/2017 1:27 PM CDT Plan of Treatment Health Maintenance Due Date Last Done Comments PHYSICAL (COMPREHENSIVE) 09/23/1938 EXAM PERTUSSIS VACCINE 09/23/1942 TETANUS VACCINE 09/23/1948 SHINGLES VACCINE 1991 OSTEOPOROSIS SCREENING 09/23/1996 PREVNAR/PNEUMOVAX (#1) 09/23/1996 INFLUENZA VACCINE 11/22/2017 Implants Implanted Type Area Merchandise Support Associate Device Expiration Model / Identifier Date Serial / Lot Device Closure 70cm 6fr Angio-Seal Right: [facility] [employer] 07/22/2017 [id number] / Vip .035in Vascular - Sn/A Femoral N/A / Implanted: Qty: 1 on 10/22/2016 by Artery [id number] Anton Joseph MD Stent Ureteral 6fr 26cm Pigtail N/A: [employer] 09/16/2019 [id number] Curve Taper Tip Bladder Theodore - Ureter SCIENTIFIC 0 / [id number] UROLOGY [id number] Implanted: Qty: 1 on 11/13/2016 by Lara / Darvin Swenson MD [id number] Stent Ureteral 6fr 26cm Pigtail N/A: [employer] 08/24/2019 [id number] Curve Taper Tip Bladder Theodore - Ureter SCIENTIFIC 0 / [id number] UROLOGY [id number] Implanted: Qty: 1 on 11/13/2016 by Darvin Ahumada MD [id number] Results * CULTURE-URINE W/SENSITIVITY (05/31/2017 3:48 PM) Component Value Ref Range Battery Name URINE CULTURE Specimen Description URINE, CLEAN CATCH Special Requests NONE Culture 3 OR MORE ORGANISMS PRESENT,INDICATING CONTAMINATION. PLEASE SUBMIT ANOTHER SPECIMEN. Report Status FINAL 06/02/2017 Specimen Performing Laboratory Urine - Urine,Clean Catch MAIN LAB [address] [place] [address] from Last 3 Months
--- OUTSIDE RECORDS SUMMARY | 2017-06-06 07:52 | XMS REPORT | Encounter Summary ---
Author Author [facility] Organization [facility] Address Unknown Phone Unavailable Care Team Providers Care Corporate Relations Director Name Role Phone Boris Richter MD 21 Sathya Macdonald MD PCP Reason for Visit * Reason Comments Urinary Incontinence Encounter Details Date Type Department Care Team Description 05/31/2017 Office Visit [facility] Darvin Swenson MD Urinary incontinence, Physicians - Urology [address] unspecified type (Primary 2ND FLOOR POD A [address] Dx); [address] [place] [address] Colovesical fistula OFFICE BL [phone] [place] [address] Social History Tobacco Use Types Packs/Day Years Used Date Former Smoker Cigarettes 1 45 Quit: 06/05/1998 Smokeless Tobacco: Never Used Alcohol Use Drinks/Week oz/Week Comments Yes 1 Glasses of 1.8 2 drinks a week wine 2 Standard drinks or equivalent Sex Assigned at Date Recorded Not on file as of this encounter Last Filed Vital Signs Vital Sign Reading Time Taken Blood Pressure 103/64 05/31/2017 1:27 PM CDT Pulse 87 05/31/2017 1:27 PM CDT Temperature - - Respiratory Rate - - Oxygen Saturation - - Inhaled Oxygen - - Concentration Weight 60 kg (132 lb 3.2 oz) 05/31/2017 1:27 PM CDT Height 161.3 cm (5' 3.5") 05/31/2017 1:27 PM CDT Body Mass Index 23.05 05/31/2017 1:27 PM CDT in this encounter Functional Status Functional Status Response Date of Assessment Does the patient have a hearing impairment: No 12/03/2016 Does the patient have a visual impairment: No 12/10/2016 Does the patient have impaired ambulation: No 12/10/2016 Does the patient have an activity of daily living No 12/10/2016 (ADL) impairment: Does the patient have an instrumental activity of No 12/10/2016 daily living (IADL) impairment: Cognitive Status Response Date of Assessment Does the patient have a cognitive impairment: No 12/10/2016 as of this encounter Miscellaneous Notes * Assessment & Plan Note - Janak Montiel MD - 05/31/2017 4:36 PM CDT Associated Problem(s): Colovesical fistula Mrs Clarke is 86F w/ a complex [...] prescribe abx as indicated -- RTC PRN in this encounter Plan of Treatment Name Priority Associated Diagnoses Order Schedule URODYNAMIC STUDIES Routine Urinary incontinence, Ordered: 05/31/2017 unspecified type as of this encounter Results * CULTURE-URINE W/SENSITIVITY (05/31/2017 3:48 PM) Component Value Ref Range Battery Name URINE CULTURE Specimen Description URINE, CLEAN CATCH Special Requests NONE Culture 3 OR MORE ORGANISMS PRESENT,INDICATING CONTAMINATION. PLEASE SUBMIT ANOTHER SPECIMEN. Report Status FINAL 06/02/2017 Specimen Performing Laboratory Urine - Urine,Clean Catch MAIN LAB [address] [place] [address] in this encounter Visit Diagnoses Diagnosis Urinary incontinence, unspecified type - Primary Colovesical fistula Intestinovesical fistula
--- OUTSIDE RECORDS SUMMARY | 2017-06-06 07:52 | XMS REPORT | Encounter Summary ---
Author Author [facility] Organization [facility] Address Unknown Phone Unavailable Care Team Providers Care Scrap Sawyer Name Role Phone Boris Richter MD 21 Sathya Macdonald MD PCP Reason for Visit * Reason Comments Results Encounter Details Date Type Department Care Team Description 06/03/2017 Telephone [facility] Darvin Swenson MD Results Physicians - Urology [address] [facility] 2ND FLOOR POD A [address] [facility] [place] [address] OFFICE BLDG [phone] [place] [address] Social History Tobacco Use Types Packs/Day Years Used Date Former Smoker Cigarettes 1 46 Quit: 06/05/1998 Smokeless Tobacco: Never Used Alcohol Use Drinks/Week oz/Week Comments Yes 1 Glasses of 1.8 2 drinks a week wine 2 Standard drinks or equivalent Sex Assigned at Date Recorded Not on file as of this encounter Functional Status Functional Status Response [...] as of this encounter Miscellaneous Notes * Telephone Encounter - Vitaly Aldana LPN - 06/03/2017 8:34 AM CDT Spoke with pt and informed her of needing another specimen. She stated she is seeing her urologist today and will have him do it. He will fax over results. * Telephone Encounter - Vitaly Aldana LPN - 06/03/2017 8:33 AM CDT ----- Message from Darvin Swenson MD sent at 06/02/2017 10:05 PM CDT ----- Vitaly, Please let Ms. Clarke know the her urine culture was contaminated. She will need to collect another specimen locally. Thanks. DD in this encounter Plan of Treatment Not on fileas of this encounter Visit Diagnoses Not on filein this encounter
--- OUTSIDE RECORDS SUMMARY | 2017-06-06 07:52 | XMS REPORT | Encounter Summary ---
Author Author [facility] Organization [facility] Address Unknown Phone Unavailable Care Team Providers Care Estimator Jewelry Name Role Phone Boris Richter MD 21 Sathya Macdonald MD PCP Encounter Details Date Type Department Care Team Description 05/31/2017 [facility] Darvin Swenson MD Unspecified urinary Encounter [address] [place] [address] [address] [place] [address] [phone] Social History Tobacco Use Types Packs/Day Years [...] impairment: No 12/10/2016 as of this encounter Medications at Time of Discharge Medication Sig. Disp. Refills Start Date End Date baclofen (LIORESAL) 20 mg Take 20 mg by mouth tablet daily. CEPHALEXIN PO Take by mouth. Cholecalciferol (Vitamin Take 5,000 Units by mouth D3) 5,000 unit tab daily. Cranberry Extract Take by mouth. (CRANBERRY CONCENTRATE) 500 mg cap desloratadine(+) Take 5 mg by mouth daily. (CLARINEX) 5 mg tablet Docusate Sodium 250 mg Take 1 capsule by mouth cap daily. estrogen (PREMARIN) 25mg Apply 3 drops into nose in NS 30mL nasal drops as directed three times daily. Lacto.acidophilus-Bif.ani Chew 1 tablet by mouth at malis 2 billion cell chew bedtime daily. levothyroxine (SYNTHROID) Take 50 mcg by mouth at 50 mcg tablet bedtime daily. MECOBALAMIN/L-MEFOLATE/B6 Take by mouth. PHOS (METANX PO) metoprolol XL (TOPROL XL) Take 25 mg by mouth twice 25 mg extended release daily. tablet mirabegron(+) ER Take 1 tablet by mouth 90 tablet 3 01/21/2017 (MYRBETRIQ) 50 mg daily. Indications: tabletIndications: BLADDER HYPERACTIVITY BLADDER HYPERACTIVITY pantoprazole DR Take 1 tablet by mouth 90 tablet 1 10/28/2016 (PROTONIX) 40 mg tablet twice daily. raloxifene (EVISTA) 60 mg Take 60 mg by mouth daily tablet before breakfast. solifenacin(+) (VESICARE) Take 5 mg by mouth daily. 5 mg tablet spironolactone-hydrochlor Take 1 tablet by mouth othiazide (ALDACTAZIDE) every morning. 25-25 mg tablet sulindac (CLINORIL) 200 Take 200 mg by mouth mg tablet twice daily. Take with food. teriparatide(+) (FORTEO) Inject 20 mcg under the 20 mcg/dose - 600 mcg/2.4 skin daily. mL pnij injection pen trimethoprim (TRIMPEX) Take 100 mg by mouth at 100 mg tablet bedtime daily. VIT A/VIT C/VIT Take by mouth. E/ZINC/COPPER (PRESERVISION AREDS PO) Vitamin A-Vitamin C-Vit Take 2 capsules by mouth E-Min (PRESERVISION daily. AREDS) cap as of this encounter Plan of Treatment Not on fileas of this encounter Results * CULTURE-URINE W/SENSITIVITY (05/31/2017 3:48 PM) Component Value Ref Range Battery Name URINE CULTURE Specimen Description URINE, CLEAN CATCH Special Requests NONE Culture 3 OR MORE ORGANISMS PRESENT,INDICATING CONTAMINATION. PLEASE SUBMIT ANOTHER SPECIMEN. Report Status FINAL 06/02/2017 Specimen Performing Laboratory Urine - Urine,Clean Catch [facility] MAIN LAB [address] [place] [address] in this encounter Visit Diagnoses Diagnosis Urinary incontinence, unspecified type Admitting Diagnoses Diagnosis Unspecified urinary incontinence
--- OUTSIDE RECORDS SUMMARY | 2017-06-06 07:52 | XMS REPORT | Encounter Summary ---
Author Author [facility] Organization [facility] Address Unknown Phone Unavailable Care Team Providers Care Edger Automatic Name Role Phone Boris Richter MD 21 Sathya Macdonald MD PCP Encounter Details Date Type Department Care Team Description 06/03/2017 Orders Only [facility] Darvin Swenson MD Gross hematuria (Primary Physicians - Urology [address] Dx) 2ND FLOOR POD A [address] [place] [address] OFFICE BLDG [phone] [place] [address] Social History Tobacco Use Types [...] impairment: No 12/10/2016 as of this encounter Plan of Treatment Name Priority Associated Diagnoses Order Schedule CULTURE-URINE W/SENSITIVITY Routine Gross hematuria Expected: 06/03/2017 , Expires: 06/03/2018 as of this encounter Visit Diagnoses Diagnosis Gross hematuria - Primary
--- OUTSIDE RECORDS SUMMARY | 2017-06-06 07:53 | XMS REPORT | Continuity of Care Document ---
Author Author [facility] Organization [facility] Address Unknown Phone Unavailable Care Team Providers Care Manager Social Responsibility Name Role Phone [employer] Unavailable Unavailable Problems Medications Allergies, Adverse Reactions, Alerts Immunizations Results Vital Signs Encounters Location Location Details Encounter Type Encounter Number Reason For Visit Attending Provider ADM Date DC Date Status Source CA SERIES [id number] SHERMAN COYLE 10/13/20162016 Active [facility] OUTPATIENT [id number] 10/19/2016 Active [facility] OUTPATIENT [id number] SHERMAN COYLE 10/21/20162016 Active [facility] OUTPATIENT [id number] SHERMAN COYLE 10/21/20162016 Active [facility] OUTPATIENT [id number] SHERMAN COYLE 11/06/2016 Active [facility] INPATIENT [id number] SHERMAN COYLE 11/13/20162016 Active [facility] OUTPATIENT [id number] SHERMAN COYLE 11/27/2016 Active [facility] INPATIENT [id number] ALLY KING 12/03/2016 12/10/2016 Active [facility] OUTPATIENT [id number] WILLA GLORIA 12/07/2016 Active [facility] OUTPATIENT [id number] WILLA GLORIA 12/21/20162016 Active [facility] SPECIMEN [id number] WILLA GLORIA 01/04/20172016 Active [facility] OP SURGERY [id number] DANA KAUR 03/02/20172017 Active [facility] SPECIMEN [id number] WILLA GLORIA 05/31/20172017 Active [facility] O WILLA GLORIA Active [facility] OP SURGERY [id number] DANA KAUR Active [facility] Procedures Plan of Care Social History Assessment and Plan Family History Advance Directives Functional Status
--- OUTSIDE RECORDS SUMMARY | 2017-06-06 07:53 | XMS REPORT | Continuity of Care Document ---
Author Author [facility] Organization [facility] Address Unknown Phone Unavailable Allergies Active Description Code Type Severity Reaction Onset Reported/Identified Relationship to Patient Clinical Status Yes CeleBREX Drug N/A hives Yes Levaquin Drug N/A Hives Yes Levaquin Drug N/A N/A Yes Peanuts Food N/A Itching Yes Peanuts Food N/A N /A Yes penicillin Drug N/A hives Yes sulfADIAZINE Drug N/A hives Yes CeleBREX Drug N/A hives Yes Levaquin Drug N/A Hives Yes Peanuts Food N/A Itching Yes penicillin Drug N/A hives Yes sulfADIAZINE Drug N/A hives Yes PCN PCN Unknown N/ A 08/22/2013 Yes PEANUTS PEANUTS Unknown N/A 08/22/2013 Yes celecoxib [id number] Drug Allergy Unknown N/A 04/08/2017 Yes oxybutynin [id number] Drug Allergy Unknown N/A 04/08/2017 Yes peanut [id number] Drug Allergy Unknown N/A 04/08/2017 Yes Penicillins [id number] Drug Allergy Unknown N/A 04/08/2017 Yes Sulfa (Sulfonamide Antibiotics) [id number] Drug Allergy Unknown N/A 2017 Medications Medication Packaging Start Date Stop Date Route Dosage Sig acetaminophen 12/02/2016 12/02/2016 acetaminophen baclofen 12/02/2016 PO baclofen diphenhydrAMINE 12/02/2016 Benadryl cholecalciferol 12/02/2016 12/10/2016 PO cholecalciferol ciprofloxacin 12/02/2016 12/09/2016 PO Cipro docusate 12/02/2016 docusate sodium 100 mg oral capsule desloratadine 12/02/2016 12/10/2016 PO Clarinex teriparatide 12/02/2016 Forteo ferrous gluconate 12/02/2016 ferrous gluconate potassium chloride 12/02/2016 12/10/2016 PO Klor-Con 10 levothyroxine 12/02/2016 levothyroxine 50 mcg (0.05 mg) oral tablet metoprolol 12/02/2016 Metoprolol Succinate (XL) 25 mg oral tablet magnesium hydroxide 12/02/2016 12/10/2016 PO Milk of Magnesia pantoprazole 12/02/2016 12/10/2016 PO Protonix acetaminophen 12/02/2016 PO 1000 mg / 2 tab docusate 12/02/2016 PO 50 mg / 1 cap bifidobacterium-lactobacillus 12/2016 PO Probiotic Formula oral capsule hydrocortisone topical 2016 [place] hydrocortisone 2.5% topical cream aztreonam 12/02/2016 12/10/2016 IV aztreonam 1 gm/50 ml intravenous solution hydrochlorothiazide-spironolactone 12/02/2016 PO hydrochlorothiazide- spironolactone 25 mg-25 mg oral tablet teriparatide 12/02/2016 SQ Forteo 600 mcg/2.4 mL subcutaneous device nystatin topical 12/02/2016 TOP nystatin 100,000 units/g topical cream ondansetron 12/02/2016 PO 8 mg / 1 tab oxyCODONE 12/02/2016 PO 5 mg / 1 tab oxybutynin 12/02/2016 PO 10 mg / 1 tab multivitamin with minerals 2016 PO PreserVision raloxifene 12/02/2016 PO 60 mg / 1 tab desloratadine 12/10/2016 PO 5 mg / 1 tab cholecalciferol 12/10/2016 PO 5000 Unit (Int) / 1 tab baclofen 12/10/2016 PO 20 mg / 1 tab oxyCODONE 12/10/2016 12/10/2016 PO 10 mg / 2 tab pantoprazole 12/10/2016 PO 40 mg / 1 tab DAPTOmycin 12/10/2016 IV DAPTOmycin 500 mg intravenous injection diphenhydrAMINE 12/20/2016 PO 50 mg / 2 cap camphor-menthol topical 2016 TOP camphor-menthol 0.5%-0.5% topical lotion betamethasone-clotrimazole topical 12/20/2016 TOP betamethasone-clotrimazole topical 0.05%-1% cream belladonna-opium 12/20/2016 IL belladonna-opium 16.2 mg-30 mg rectal suppository Problems Date Dx Coded Attending Type Code Diagnosis Diagnosed By 01/22/1548 STEVE WALL Ot M54.9 DORSALGIA, UNSPECIFIED 02/21/2014 LEDA RANGEL MD Ot V76.12 07/15/2015 STEVE WALL Ot M54.9 DORSALGIA, UNSPECIFIED 07/31/2015 STEVE WALLP Ot M54.9 DORSALGIA, UNSPECIFIED 05/19/2016 NICHOLAS MEDINA APRN Ot R07.89 OTHER CHEST PAIN 06/16/2016 NICHOLAS MEDINA APRN Ot M81.0 AGE-RELATED OSTEOPOROSIS W/O CURRENT PAT 06/18/2016 NICHOLAS MEDINA APRN Ot M81.0 AGE-RELATED OSTEOPOROSIS W/O CURRENT PAT 07/06/2016 LEDA RANGEL MD Ot D72.829 ELEVATED WHITE BLOOD CELL COUNT, UNSPECI 07/06/2016 LEDA RANGEL MD Ot R74.8 ABNORMAL LEVELS OF OTHER SERUM ENZYMES 07/09/2016 NICHOLAS MEDINA APRN Ot M81.0 AGE-RELATED OSTEOPOROSIS W/O CURRENT PAT 07/14/2016 NICHOLAS MEDINA APRN Ot M81.0 AGE-RELATED OSTEOPOROSIS W/O CURRENT PAT 07/22/2016 LEDA RANGEL MD Ot S32.10XA UNSP FRACTURE OF SACRUM, INIT ENCNTR FOR 07/22/2016 LEDA RANGEL MD Ot X58.XXXA EXPOSURE TO OTHER SPECIFIED FACTORS, INI 08/11/2016 LEDA RANGEL MD Ot S32.10XA UNSP FRACTURE OF SACRUM, INIT ENCNTR FOR 08/11/2016 LEDA RANGEL MD Ot X58.XXXA EXPOSURE TO OTHER SPECIFIED FACTORS, INI 08/19/2016 LEDA RANGEL MD Ot S32.10XA UNSP FRACTURE OF SACRUM, INIT ENCNTR FOR 08/19/2016 LEDA RANGEL MD Ot X58.XXXA EXPOSURE TO OTHER SPECIFIED FACTORS, INI 08/20/2016 NICHOLAS MEDINA APRN Ot R07.89 OTHER CHEST PAIN 08/21/2016 GUSTABO WALTERS MD Ot N39.0 URINARY TRACT INFECTION, SITE NOT SPECIF 09/01/2016 SELENA PEOPLES, GUSTABO Solares Ot N39.0 URINARY TRACT INFECTION, SITE NOT SPECIF 09/01/2016 NICHOLAS MEDINA APRN Ot R07.89 OTHER CHEST PAIN 10/19/2016 JULIOCESAR GRACIA DO Ot M81.0 AGE-RELATED OSTEOPOROSIS W/O CURRENT PAT 12/02/2016 Xavier Marroquin Final M79.89 Other specified soft tissue disorders 12/02/2016 Xavier Marroquin Final N39.0 Urinary tract infection, site not specified 12/02/2016 Xavier Marroquin Final R06.02 Shortness of breath 12/02/2016 Xavier Marroquin Final Z98.890 Other specified postprocedural states 12/09/2016 JULIOCESAR GRACIA DO Ot M81.0 AGE-RELATED OSTEOPOROSIS W/O CURRENT PAT 12/21/2016 Deonte Russell Final 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, unspecified 12/21/2016 Deonte Russell Final B37.49 Other urogenital candidiasis 12/21/2016 Deonte Russell Final D50.9 Iron deficiency anemia, unspecified 12/21/2016 Deonte Russell Final E03.9 Hypothyroidism, unspecified 12/21/2016 Deonte Russell Final E87.6 Hypokalemia 12/21/2016 Deonte Russell Final I10 Essential (primary) hypertension 12/21/2016 Deonte Russell Final K21.9 Gastro-esophageal reflux disease without esophagitis 12/21/2016 Deonte Russell Admitting R53.81 Other malaise 12/21/2016 Deonte Russell Final Z16.11 Resistance to penicillins 12/21/2016 Deonte Russell Final Z23 Encounter for immunization 12/21/2016 Deonte Russell Z48.816 Encounter for surgical aftercare following surgery on the ge 12/21/2016 Deonte Russell Final Z87.891 Personal history of nicotine dependence 01/07/2017 Sejal Carver Final D64.9 Anemia, unspecified 01/07/2017 Sejal Carver Final N39.0 Urinary tract infection, site not specified 01/07/2017 Sejal Carver Final R53.81 Other malaise 01/21/2017 Lynn Dasilva Final B95.2 Enterococcus as the cause of diseases classified elsewhere 01/21/2017 Lynn Dasilva Final N39.0 Urinary tract infection, site not specified 01/21/2017 Lynn Dasilva Final R78.81 Bacteremia 02/21/2017 Lynn Dasilva Final Z53.9 Procedure and treatment not carried out, unspecified reason 04/14/2017 XIOMY KUMARI DOI Ot A41.59 OTHER GRAM-NEGATIVE SEPSIS 04/14/2017 QUOC ROMANO TARAH Ot B00.1 HERPESVIRAL VESICULAR DERMATITIS 04/14/2017 QUOC ROMANO TARAH Ot B96.20 UNSP ESCHERICHIA COLI THE CAUSE OF DI 04/14/2017 XIOMY KUMARI DOI Ot D63.8 ANEMIA IN OTHER CHRONIC DISEASES CLASSIF 04/14/2017 QUOC ROMANO TARAH Ot E86.0 DEHYDRATION 04/14/2017 QUOC ROMANO TARAH Ot E89.0 POSTPROCEDURAL HYPOTHYROIDISM 04/14/2017 QUOC ROMANO TARAH Ot I10 ESSENTIAL (PRIMARY) HYPERTENSION 04/14/2017 QUOC ROMANO TARAH Ot J30.2 OTHER SEASONAL ALLERGIC RHINITIS 04/14/2017 QUOC ROMANO TARAH Ot K21.9 GASTRO-ESOPHAGEAL REFLUX DISEASE WITHOUT 04/14/2017 QUOC ROMANO TARAH Ot N32.81 OVERACTIVE BLADDER 04/14/2017 QUOC ROMANO TARAH Ot N36.42 INTRINSIC SPHINCTER DEFICIENCY (ISD) 04/14/2017 QUOC ROMANO TARAH Ot N39.0 URINARY TRACT INFECTION, SITE NOT SPECIF 04/14/2017 QUOC ROMANO TARAH Ot R19.7 DIARRHEA, UNSPECIFIED 04/14/2017 QUOC ROMANO TARAH Ot Z87.11 PERSONAL HISTORY OF PEPTIC ULCER DISEASE 04/14/2017 XIOMY KUMARI DOI Ot Z87.448 PERSONAL HISTORY OF OTHER DISEASES OF UR 04/14/2017 QUOC ROMANO TARAH Ot Z87.891 PERSONAL HISTORY OF NICOTINE DEPENDENCE 04/14/2017 QUOC ROMANO TARAH Ot Z98.890 OTHER SPECIFIED POSTPROCEDURAL STATES Procedures Code Description [place] [address] Intravenous infusion, for therapy, proph TATIANA BURGESS 12/02/2016 [id number] Emergency department visit for the evalu TATIANA BURGESS 12/02/2016 Results Test Result Range Complete blood count (CBC) with automated white blood cell (WBC) differential - 05/18/16 09:05 Blood leukocytes automated count (number/volume) 11.1 10*3/uL 4.3-11.0 Blood erythrocytes automated count (number/volume) 4.84 10*6/uL 4.35-5.85 Venous blood hemoglobin measurement (mass/volume) 15.1 g/dL 11.5-16.0 Blood hematocrit (volume fraction) 46 % 35-52 Automated erythrocyte mean corpuscular volume 95 [foz_us] 80-99 Automated erythrocyte mean corpuscular hemoglobin (mass per erythrocyte) 31 pg 25-34 Automated erythrocyte mean corpuscular hemoglobin concentration measurement ( mass/volume) 33 g/dL 32-36 Automated erythrocyte distribution width ratio 13.8 % 10.0-14.5 Automated blood platelet count (count/volume) 214 10*3/uL 130-400 Automated blood platelet mean volume measurement 10.7 [foz_us] 7.4-10.4 Automated blood neutrophils/100 leukocytes 79 % 42-75 Automated blood lymphocytes/100 leukocytes 10 % 12-44 Blood monocytes/100 leukocytes 10 % 0-12 Automated blood eosinophils/100 leukocytes 1 % 0-10 Automated blood basophils/100 leukocytes 1 % 0-10 Blood neutrophils automated count (number/volume) 8.8 10*3 1.8-7.8 Blood lymphocytes automated count (number/volume) 1.1 10*3 1.0-4.0 Blood monocytes automated count (number/volume) 1.1 10*3 0.0-1.0 Automated eosinophil count 0.1 10*3/uL 0.0-0.3 Automated blood basophil count (count/volume) 0.1 10*3/uL 0.0-0.1 Comprehensive metabolic panel - 05/18/16 09:05 Serum or plasma sodium measurement (moles/volume) 142 mmol/L 135-145 Serum or plasma potassium measurement (moles/volume) 4.3 mmol/L 3.6-5.0 Serum or plasma chloride measurement (moles/volume) 105 mmol/L 98-107 Carbon dioxide 27 mmol/L 21-32 Serum or plasma anion gap determination (moles/volume) 10 mmol/L 5-14 Serum or plasma urea nitrogen measurement (mass/volume) 33 mg/dL 7-18 Serum or plasma creatinine measurement (mass/volume) 1.06 mg/dL 0.60-1.30 Serum or plasma urea nitrogen/creatinine mass ratio 31 NRG Serum or plasma creatinine measurement with calculation of estimated glomerular filtration rate 49 NRG Serum or plasma glucose measurement (mass/volume) 99 mg/dL 70-105 Serum or plasma calcium measurement (mass/volume) 9.1 mg/dL 8.5-10.1 Serum or plasma total bilirubin measurement (mass/volume) 1.0 mg/dL 0.1-1.0 Serum or plasma alkaline phosphatase measurement (enzymatic activity/volume) 187 U/L 40-136 Serum or plasma aspartate aminotransferase measurement (enzymatic activity/ volume) 23 U/L 5-34 Serum or plasma alanine aminotransferase measurement (enzymatic activity/volume ) 22 U/L 0-55 Serum or plasma protein measurement (mass/volume) 6.6 g/dL 6.4-8.2 Serum or plasma albumin measurement (mass/volume) 3.9 g/dL 3.2-4.5 Serum or plasma creatine kinase MB measurement (enzymatic activity/volume) - 09:05 Serum or plasma creatine kinase MB measurement (enzymatic activity/volume) 1.2 ng/mL <6.6 Serum or plasma troponin i.cardiac measurement (mass/volume) - 05/18/16 09:05 Serum or plasma troponin i.cardiac measurement (mass/volume) < ng/ mL <0.30 Serum or plasma alkaline phosphatase measurement (enzymatic activity/volume) - 06/11/16 09:58 Serum or plasma alkaline phosphatase measurement (enzymatic activity/volume) 201 U/L 40-136 Pathologist review of blood test by angelito - 06/11/16 09:58 Blood leukocytes automated count (number/volume) 10.2 10*3/uL 4.3-11.0 Blood erythrocytes automated count (number/volume) 4.80 10*6/uL 4.35-5.85 Venous blood hemoglobin measurement (mass/volume) 14.8 g/dL 11.5-16.0 Blood hematocrit (volume fraction) 45 % 35-52 Automated erythrocyte mean corpuscular volume 94 [foz_us] 80-99 Automated erythrocyte mean corpuscular hemoglobin (mass per erythrocyte) 31 pg 25-34 Automated erythrocyte mean corpuscular hemoglobin concentration measurement ( mass/volume) 33 g/dL 32-36 Automated erythrocyte distribution width ratio 13.9 % 10.0-14.5 Automated blood platelet count (count/volume) 225 10*3/uL 130-400 Automated blood platelet mean volume measurement 10.3 [foz_us] 7.4-10.4 Automated blood neutrophils/100 leukocytes 76 % 42-75 Automated blood lymphocytes/100 leukocytes 12 % 12-44 Blood monocytes/100 leukocytes 8 % NRG Automated blood eosinophils/100 leukocytes 2 % 0-10 Automated blood basophils/100 leukocytes 0 % 0-10 Blood neutrophils automated count (number/volume) 7.7 10*3 1.8-7.8 Blood lymphocytes automated count (number/volume) 1.2 10*3 1.0-4.0 Blood monocytes automated count (number/volume) 1.0 10*3 0.0-1.0 Automated eosinophil count 0.2 10*3/uL 0.0-0.3 Automated blood basophil count (count/volume) 0.0 10*3/uL 0.0-0.1 Manual blood segmented neutrophils/100 leukocytes 73 % NRG Blood band neutrophils/100 leukocytes 4 % NRG Manual blood lymphocytes/100 leukocytes 11 % NRG Manual eosinophils/100 leukocytes in nose 3 % NRG Manual blood basophils/100 leukocytes 0 % NRG Blood lymphocytes variant/100 leukocytes 1 % NRG Blood erythrocyte morphology finding identification NORMAL NR Blood reticulocytes count (number/volume) 80 10*9/L 24- 90 Blood reticulocytes/100 erythrocytes 1.66 % 0.50-2.40 [id number] - 07/21/16 09:33 Serum or plasma urea nitrogen measurement (mass/volume) 39 mg/dL 7-18 Serum or plasma creatinine measurement (mass/volume) 1.09 mg/dL 0.60-1.30 Serum or plasma urea nitrogen/creatinine mass ratio 36 NRG Serum or plasma creatinine measurement with calculation of estimated glomerular filtration rate 48 [facility] Comprehensive metabolic panel - 09/03/16 12:44 Serum or plasma sodium measurement (moles/volume) 136 mmol/L 135-145 Serum or plasma potassium measurement (moles/volume) 4.3 mmol/L 3.6-5.0 Serum or plasma chloride measurement (moles/volume) 102 mmol/L 98-107 Carbon dioxide 24 mmol/L 21-32 Serum or plasma anion gap determination (moles/volume) 10 mmol/L 5-14 Serum or plasma urea nitrogen measurement (mass/volume) 28 mg/dL 7-18 Serum or plasma creatinine measurement (mass/volume) 1.03 mg/dL 0.60-1.30 Serum or plasma urea nitrogen/creatinine mass ratio 27 NR Serum or plasma creatinine measurement with calculation of estimated glomerular filtration rate 51 NRG Serum or plasma glucose measurement (mass/volume) 102 mg/dL 70-105 Serum or plasma calcium measurement (mass/volume) 9.1 mg/dL 8.5-10.1 Serum or plasma total bilirubin measurement (mass/volume) 1.6 mg/dL 0.1-1.0 Serum or plasma alkaline phosphatase measurement (enzymatic activity/volume) 254 U/L 40-136 Serum or plasma aspartate aminotransferase measurement (enzymatic activity/ volume) 36 U/L 5-34 Serum or plasma alanine aminotransferase measurement (enzymatic activity/volume ) 41 U/L 0-55 Serum or plasma protein measurement (mass/volume) 7.1 g/dL 6.4-8.2 Serum or plasma albumin measurement (mass/volume) 3.9 g/dL 3.2-4.5 Magnesium - 09/03/16 12:44 Magnesium 1.7 mg/dL 1.8-2.4 Urine protein electrophoresis panel - 09/03/16 12:44 Urine protein measurement (mass/volume) 37.0 H 0.1- 15.0 Pathology consultation and report [place] [facility] 24 hour urine protein fractions interpretation by electrophoresis [facility] [id number] [facility] Serum protein electrophoresis - 09/03/16 12:44 Serum or plasma protein measurement (mass/volume) 6.6 % 6.1-8.1 Pathology consultation and report SEE PATH REPORT [facility] Serum or plasma protein fractions interpretation by electrophoresis [facility] [id number] [facility] 25-hydroxyvitamin D measurement - 09/03/16 12:44 25-hydroxy vitamin D measurement 45 % 30-100 TYPE AND SCREEN CONVERTABLE TO XM - 12/02/16 19:21 ABO/Rh A POS [facility] Antibody Screen NEG [facility] Specimen Or Xm Expiration 12/05/2016 [facility] CBCA - 12/02/16 19:38 WBC Count 9.1 X1000/cmm 4.0-10.5 RBC Count 2.87 [id number]/cmm 4.00-5.40 Hemoglobin 7.4 g/dL 12.0-16.0 Hematocrit 23.6 % 37.0-47.0 MCV 82.2 fL 78-100 MCH 25.8 pg 27.0-31.0 MCHC 31.4 g/dL 32.0-36.0 RDW 16.5 % 11.5-14.0 Platelet Count 397 X1000/cmm 150-450 MPV 10.2 fL 8.0-11.7 Neutrophil 79 % 43-65 Band Neutrophil 8 % 0-7 Lymphocyte 10 % 21-46 Eosinophil 1 % 1-3 Basophil 2 % 0-1 Abs Neutrophil 7.9 X1000 2.2-4.8 Abs Lymph 0.9 X1000 1.3-2.9 Abs Eos 0.1 X1000 0.0-0.2 Abs Baso 0.2 X1000 0.0-0.1 Differential Type MANUAL NRG Polychromasia OCCASIONAL NRG Toxic Granulation SLIGHT NRG Platelet Morphology NORMAL NRG LACTIC ACID - 12/02/16 19:38 Lactic Acid 1.5 mmol/L 0.5-2.0 CARDIAC MARKER, 0 HR WITH REFLEX - 12/02/16 19:38 Cardiac Troponin T <0.01 ng/mL 0.00-0.02 Myoglobin 21 ng/mL 0-70 BLOOD CULTURE - 12/02/16 19:38 Specimen Description BLOOD NRG Special Requests S+ NRG Gram Stain GRAM POSITIVE COCCI CHAINS NRG Culture endocarditis, unless high level resistance to both gentamycin and streptomycin is documented. Such comibinations are predicted to result in synergistic killing of Enterococcus. NRG Report Status FINAL 12/06/2016 NRG Organism ECFCMV NRG Culture Status NRG METHOD KB - 12/02/16 19:38 AMPICILLIN RESISTANT NRG ERYTHROMYCIN INTERMEDIATE NRG BENZYLPENICILLIN RESISTANT NRG RIFAMPIN RESISTANT NRG VANCOMYCIN SUSCEPTIBLE NRG FOSFOMYCIN SUSCEPTIBLE NRG BLOOD CULTURE - 12/02/16 19:38 Specimen Description BLOOD NRG Special Requests S+ NRG Culture NO GROWTH 5 DAYS NRG Report Status FINAL 12/07/2016 NRG Organism NG5 NRG URINALYSIS, CULTURE IF INDICATED - 12/02/16 20:21 Color, UA RED YELL Clarity, Urine CLOUDY Clear Glucose, Urine NEGATIVE mg/dL NEG Bilirubin, UA SMALL NEG Ketones, UA TRACE mg/dL NEG Specific [place], UA 1.025 1.003-1.030 Blood, UA LARGE NEG pH, UA 6.0 5.0-9.0 Protein, UA 300 mg/dL NEG Urobilinogen, UA 0.2 mg/dL NORM Nitrites, UA NEGATIVE NEG Leukocyte Esterase, UA LARGE NEG WBC's, UA TOO NUMEROUS TO COUNT /hpf OFIVE RBC, UA PACKED /hpf OFIVE Bacteria, UA FEW /hpf NEG Squamous Epithelials, UA NEG - FEW /hpf NEGFEW Urine Culture Indicated SENT FOR CULTURE NOCULT Specimen Description URINE [facility] URINE CULTURE - 12/02/16 20:21 Specimen Description URINE NR Special Requests NONE Reflexed from [id number] NRG [place] Count >100,000 CFU/ML NRG Culture JASE ALBICANS MANY NRG Report Status FINAL 12/05/2016 NRG Organism CANALB NRG Culture Status NR METHOD LUCIANO - 12/02/16 20:21 AMPICILLIN >=32 RESISTANT NRG CIPROFLOXACIN >=8 RESISTANT NRG LEVOFLOXACIN >=8 RESISTANT NRG NITROFURANTOIN 128 RESISTANT NRG BENZYLPENICILLIN >=64 RESISTANT NRG TETRACYCLINE <=1 SUSCEPTIBLE NRG VANCOMYCIN <=0.5 SUSCEPTIBLE NRG BETA LACTAMASE NEGATIVE [facility] BASIC METABOLIC PANEL - 12/11/16 06:22 Sodium 137 mmol/L 135-145 Potassium 3.0 mmol/L 3.6-5.0 Chloride 97 mmol/L 101-111 Carbon Dioxide, Total 27 mmol/L 21-31 Glucose Level 110 mg/dL 70-100 BUN 14 mg/dL 6-20 Creatinine 0.9 mg/dL 0.5-1.2 Calcium 8.6 mg/dL 8.5-10.5 Calculated GFR 59.5 mL/min/1.73sq >60 Anion Gap 13 mmol/L [facility] BASIC METABOLIC PANEL - 12/13/16 05:42 Sodium 139 mmol/L 135-145 Potassium 3.5 mmol/L 3.6-5.0 Chloride 99 mmol/L 101-111 Carbon Dioxide, Total 27 mmol/L 21-31 Glucose Level 101 mg/dL 70-100 BUN 17 mg/dL 6-20 Creatinine 0.8 mg/dL 0.5-1.2 Calcium 8.5 mg/dL 8.5-10.5 Calculated GFR >60.0 mL/min/1.73sq >60 Anion Gap 13 mmol/L [facility] MAGNESIUM - 12/13/16 05:42 Magnesium 1.8 mg/dL 1.8-2.5 BASIC METABOLIC PANEL - 12/14/16 06:05 Sodium 138 mmol/L 135-145 Potassium 3.7 mmol/L 3.6-5.0 Chloride 100 mmol/L 101-111 Carbon Dioxide, Total 26 mmol/L 21-31 Glucose Level 114 mg/dL 70-100 BUN 19 mg/dL 6-20 Creatinine 0.9 mg/dL 0.5-1.2 Calcium 8.7 mg/dL 8.5-10.5 Calculated GFR 59.5 mL/min/1.73sq >60 Anion Gap 12 mmol/L NRG CREATINE KINASE (CPK) - 12/14/16 06:05 Creatine Kinase 69 U/L 22-269 URINALYSIS, CULTURE IF INDICATED - 12/14/16 19:54 Color, UA LIGHT YELLOW YELL Clarity, Urine TURBID Clear Glucose, Urine NEGATIVE mg/dL NEG Bilirubin, UA NEGATIVE NEG Ketones, UA NEGATIVE mg/dL NEG Specific [place], UA >1.030 1.003-1.030 Blood, UA LARGE NEG pH, UA 6.0 5.0-9.0 Protein, UA 300 mg/dL NEG Urobilinogen, UA NORMAL mg/dL NORM Nitrites, UA NEGATIVE NEG Leukocyte Esterase, UA LARGE NEG WBC's, UA PACKED /hpf OFIVE RBC, UA 0-5 /hpf OFIVE Bacteria, UA FEW /hpf NEG Squamous Epithelials, UA NEG - FEW /hpf NEGFEW Urine Culture Indicated SENT FOR CULTURE NOCULT Specimen Description URINE, CATHETERIZED [facility] URINE CULTURE - 12/14/16 19:54 Specimen Description URINE [facility] Special Requests NONE Reflexed from [id number] NRG [place] Count 50,000 CFU/ML NRG Culture JASE ALBICANS NR Report Status FINAL 12/16/2016 NR Organism CANALB NR Culture Status NR CREATINE KINASE (CPK) - 12/18/16 05:51 Creatine Kinase 295 U/L 22-269 COMPREHENSIVE METABOLIC PANEL - 12/18/16 05:51 Sodium 132 mmol/L 135-145 Potassium 4.7 mmol/L 3.6-5.0 Chloride 96 mmol/L 101-111 Carbon Dioxide, Total 24 mmol/L 21-31 Glucose Level 109 mg/dL 70-100 BUN 28 mg/dL 6-20 Creatinine 1.0 mg/dL 0.5-1.2 Calcium 8.9 mg/dL 8.5-10.5 Total Protein 7.3 g/dL 6.0-8.0 Albumin 3.4 g/dL 3.2-5.5 Alkaline Phosphatase 81 U/L 42-121 AST (SGOT) 21 U/L 10-42 ALT (SGPT) 14 U/L 10-60 Total Bilirubin 0.2 mg/dL 0.2-1.0 Calculated GFR 52.7 mL/min/1.73sq >60 Anion Gap 12 mmol/L [facility] BASIC METABOLIC PANEL - 12/20/16 06:28 Sodium 131 mmol/L 135-145 Potassium 4.7 mmol/L 3.6-5.0 Chloride 95 mmol/L 101-111 Carbon Dioxide, Total 25 mmol/L 21-31 Glucose Level 114 mg/dL 70-100 BUN 31 mg/dL 6-20 Creatinine 1.2 mg/dL 0.5-1.2 Calcium 9.0 mg/dL 8.5-10.5 Calculated GFR 42.7 mL/min/1.73sq >60 Anion Gap 11 mmol/L [facility] CREATINE KINASE (CPK) - 12/20/16 06:28 Creatine Kinase 617 U/L 22-269 BASIC METABOLIC PANEL - 12/22/16 11:13 Sodium 136 mmol/L 135-145 Potassium 4.6 mmol/L 3.6-5.0 Chloride 98 mmol/L 101-111 Carbon Dioxide, Total 22 mmol/L 21-31 Glucose Level 183 mg/dL 70-100 BUN 38 mg/dL 6-20 Creatinine 1.2 mg/dL 0.5-1.2 Calcium 9.3 mg/dL 8.5-10.5 Calculated GFR 42.7 mL/min/1.73sq >60 Anion Gap 16 mmol/L [facility] CBCA - 12/22/16 11:14 WBC Count 11.4 X1000/cmm 4.0-10.5 RBC Count 3.94 [id number]/cmm 4.00-5.40 Hemoglobin 10.1 g/dL 12.0-16.0 Hematocrit 31.3 % 37.0-47.0 MCV 79.4 fL 78-100 MCH 25.6 pg 27.0-31.0 MCHC 32.3 g/dL 32.0-36.0 RDW 17.3 % 11.5-14.0 Platelet Count 460 X1000/cmm 150-450 MPV 9.8 fL 8.0-11.7 Differential Type AUTOMATED NRG Neutrophil % 78.8 % 43.0-65.0 Lymphocyte % 9.9 % 20.5-45.5 Monocyte % 9.0 % 5.5-11.7 Eosinophil % 1.4 % 0.9-2.9 Basophil % 0.5 % 0.2-1.0 Neutrophil Abs Auto 9.0 X1000 1.72-6.83 Lymphocyte Abs Auto 1.1 X1000 0.84-4.83 Monocyte Abs Auto 1.0 X1000 0.24-1.26 Eosinophil Abs Auto 0.2 X1000 0.04-0.32 Basophil Abs Auto 0.1 X1000 0.00-0.11 Immature Granulocyte 0.4 % NRG Immature Grans Absolute 0.0 X1000 0.00-0.05 COMPREHENSIVE METABOLIC PANEL - 12/24/16 07:30 Sodium 139 mmol/L 135-145 Potassium 4.4 mmol/L 3.6-5.0 Chloride 100 mmol/L 101-111 Carbon Dioxide, Total 24 mmol/L 21-31 Glucose Level 156 mg/dL 70-100 BUN 37 mg/dL 6-20 Creatinine 1.3 mg/dL 0.5-1.2 Calcium 9.3 mg/dL 8.5-10.5 Total Protein 7.4 g/dL 6.0-8.0 Albumin 3.7 g/dL 3.2-5.5 Alkaline Phosphatase 78 U/L 42-121 AST (SGOT) 15 U/L 10-42 ALT (SGPT) 10 U/L 10-60 Total Bilirubin 0.2 mg/dL 0.2-1.0 Calculated GFR 38.9 mL/min/1.73sq >60 Anion Gap 15 mmol/L NRG VANCOMYCIN, TROUGH - 12/24/16 07:30 Vancomycin, Trough 13.4 ug/mL 10.0-20.0 CREATINE KINASE (CPK) - 12/28/16 07:30 Creatine Kinase 35 U/L 22-269 COMPREHENSIVE METABOLIC PANEL - 12/28/16 07:30 Sodium 136 mmol/L 135-145 Potassium 3.8 mmol/L 3.6-5.0 Chloride 96 mmol/L 101-111 Carbon Dioxide, Total 24 mmol/L 21-31 Glucose Level 192 mg/dL 70-100 BUN 30 mg/dL 6-20 Creatinine 1.3 mg/dL 0.5-1.2 Calcium 9.2 mg/dL 8.5-10.5 Total Protein 7.5 g/dL 6.0-8.0 Albumin 3.7 g/dL 3.2-5.5 Alkaline Phosphatase 85 U/L 42-121 AST (SGOT) 17 U/L 10-42 ALT (SGPT) 12 U/L 10-60 Total Bilirubin 0.5 mg/dL 0.2-1.0 Calculated GFR 38.9 mL/min/1.73sq >60 Anion Gap 16 mmol/L NRG CBCA - 12/29/16 07:46 WBC Count 10.4 X1000/cmm 4.0-10.5 RBC Count 3.87 [id number]/cmm 4.00-5.40 Hemoglobin 9.8 g/dL 12.0-16.0 Hematocrit 31.2 % 37.0-47.0 MCV 80.6 fL 78-100 MCH 25.3 pg 27.0-31.0 MCHC 31.4 g/dL 32.0-36.0 RDW 19.4 % 11.5-14.0 Platelet Count 342 X1000/cmm 150-450 MPV 10.1 fL 8.0-11.7 Differential Type AUTOMATED NRG Neutrophil % 77.4 % 43.0-65.0 Lymphocyte % 10.6 % 20.5-45.5 Monocyte % 8.1 % 5.5-11.7 Eosinophil % 2.3 % 0.9-2.9 Basophil % 0.6 % 0.2-1.0 Neutrophil Abs Auto 8.1 X1000 1.72-6.83 Lymphocyte Abs Auto 1.1 X1000 0.84-4.83 Monocyte Abs Auto 0.8 X1000 0.24-1.26 Eosinophil Abs Auto 0.2 X1000 0.04-0.32 Basophil Abs Auto 0.1 X1000 0.00-0.11 Immature Granulocyte 1.0 % NRG Immature Grans Absolute 0.1 X1000 0.00-0.05 VANCOMYCIN, TROUGH - 12/29/16 07:46 Vancomycin, Trough 13.3 ug/mL 10.0-20.0 COMPREHENSIVE METABOLIC PANEL - 12/31/16 07:25 Sodium 136 mmol/L 135-145 Potassium 4.6 mmol/L 3.6-5.0 Chloride 97 mmol/L 101-111 Carbon Dioxide, Total 24 mmol/L 21-31 Glucose Level 194 mg/dL 70-100 BUN 32 mg/dL 6-20 Creatinine 1.1 mg/dL 0.5-1.2 Calcium 9.3 mg/dL 8.5-10.5 Total Protein 7.8 g/dL 6.0-8.0 Albumin 4.0 g/dL 3.2-5.5 Alkaline Phosphatase 86 U/L 42-121 AST (SGOT) 19 U/L 10-42 ALT (SGPT) 13 U/L 10-60 Total Bilirubin 0.5 mg/dL 0.2-1.0 Calculated GFR 47.2 mL/min/1.73sq >60 Anion Gap 15 mmol/L NRG COMPREHENSIVE METABOLIC PANEL - 01/04/17 08:00 Sodium 137 mmol/L 135-145 Potassium 4.2 mmol/L 3.6-5.0 Chloride 98 mmol/L 101-111 Carbon Dioxide, Total 24 mmol/L 21-31 Glucose Level 198 mg/dL 70-100 BUN 41 mg/dL 6-20 Creatinine 2.1 mg/dL 0.5-1.2 Calcium 8.8 mg/dL 8.5-10.5 Total Protein 7.1 g/dL 6.0-8.0 Albumin 3.5 g/dL 3.2-5.5 Alkaline Phosphatase 74 U/L 42-121 AST (SGOT) 12 U/L 10-42 ALT (SGPT) 7 U/L 10-60 Total Bilirubin 0.3 mg/dL 0.2-1.0 Calculated GFR 22.4 mL/min/1.73sq >60 Anion Gap 15 mmol/L NRG VANCOMYCIN, TROUGH - 01/04/17 08:00 Vancomycin, Trough 14.1 ug/mL 10.0-20.0 COMPREHENSIVE METABOLIC PANEL - 01/06/17 11:08 Sodium 137 mmol/L 135-145 Potassium 4.1 mmol/L 3.6-5.0 Chloride 99 mmol/L 101-111 Carbon Dioxide, Total 27 mmol/L 21-31 Glucose Level 80 mg/dL 70-100 BUN 39 mg/dL 6-20 Creatinine 1.3 mg/dL 0.5-1.2 Calcium 9.1 mg/dL 8.5-10.5 Total Protein 7.2 g/dL 6.0-8.0 Albumin 3.7 g/dL 3.2-5.5 Alkaline Phosphatase 73 U/L 42-121 AST (SGOT) 12 U/L 10-42 ALT (SGPT) 6 U/L 10-60 Total Bilirubin 0.2 mg/dL 0.2-1.0 Calculated GFR 38.9 mL/min/1.73sq >60 Anion Gap 11 mmol/L NRG Capillary blood glucose measurement by glucometer (mass/volume) - 04/08/17 08: 15 Capillary blood glucose measurement by glucometer (mass/volume) 125 mg/dL 70-110 Complete blood count (CBC) with automated white blood cell (WBC) differential - 04/08/17 08:35 Blood leukocytes automated count (number/volume) 21.3 10*3/uL 4.3-11.0 Blood erythrocytes automated count (number/volume) 4.67 10*6/uL 4.35-5.85 Venous blood hemoglobin measurement (mass/volume) 12.0 g/dL 11.5-16.0 Blood hematocrit (volume fraction) 36 % 35-52 Automated erythrocyte mean corpuscular volume 77 [foz_us] 80-99 Automated erythrocyte mean corpuscular hemoglobin (mass per erythrocyte) 26 pg 25-34 Automated erythrocyte mean corpuscular hemoglobin concentration measurement ( mass/volume) 33 g/dL 32-36 Automated erythrocyte distribution width ratio 17.6 % 10.0-14.5 Automated blood platelet count (count/volume) 249 10*3/uL 130-400 Automated blood platelet mean volume measurement 10.7 [foz_us] 7.4-10.4 Automated blood neutrophils/100 leukocytes 90 % 42-75 Automated blood lymphocytes/100 leukocytes 2 % 12-44 Blood monocytes/100 leukocytes 7 % 0-12 Automated blood eosinophils/100 leukocytes 0 % 0-10 Automated blood basophils/100 leukocytes 0 % 0-10 Blood neutrophils automated count (number/volume) 19.2 10*3 1.8-7.8 Blood lymphocytes automated count (number/volume) 0.5 10*3 1.0-4.0 Blood monocytes automated count (number/volume) 1.6 10*3 0.0-1.0 Automated eosinophil count 0.1 10*3/uL 0.0-0.3 Automated blood basophil count (count/volume) 0.0 10*3/uL 0.0-0.1 Blood lactic acid measurement (moles/volume) - 04/08/17 08:35 Blood lactic acid measurement (moles/volume) 1.71 mmol/L 0.50-2.00 Comprehensive metabolic panel - 04/08/17 08:35 Serum or plasma sodium measurement (moles/volume) 138 mmol/L 135-145 Serum or plasma potassium measurement (moles/volume) 4.0 mmol/L 3.6-5.0 Serum or plasma chloride measurement (moles/volume) 104 mmol/L 98-107 Carbon dioxide 22 mmol/L 21-32 Serum or plasma anion gap determination (moles/volume) 12 mmol/L 5-14 Serum or plasma urea nitrogen measurement (mass/volume) 27 mg/dL 7-18 Serum or plasma creatinine measurement (mass/volume) 1.02 mg/dL 0.60-1.30 Serum or plasma urea nitrogen/creatinine mass ratio 26 NRG Serum or plasma creatinine measurement with calculation of estimated glomerular filtration rate 52 NRG Serum or plasma glucose measurement (mass/volume) 108 mg/dL 70-105 Serum or plasma calcium measurement (mass/volume) 8.8 mg/dL 8.5-10.1 Serum or plasma total bilirubin measurement (mass/volume) 1.4 mg/dL 0.1-1.0 Serum or plasma alkaline phosphatase measurement (enzymatic activity/volume) 107 U/L 40-136 Serum or plasma aspartate aminotransferase measurement (enzymatic activity/ volume) 32 U/L 5-34 Serum or plasma alanine aminotransferase measurement (enzymatic activity/volume ) 34 U/L 0-55 Serum or plasma protein measurement (mass/volume) 6.5 g/dL 6.4-8.2 Serum or plasma albumin measurement (mass/volume) 3.6 g/dL 3.2-4.5 Blood manual differential performed detection - 04/08/17 08:35 Blood monocytes/100 leukocytes 5 % NRG Manual blood segmented neutrophils/100 leukocytes 81 % NRG Blood band neutrophils/100 leukocytes 12 % NRG Manual blood lymphocytes/100 leukocytes 2 % NRG Blood anisocytosis detection by light microscopy SLIGHT NRG Blood ovalocytes detection by light microscopy SLIGHT NRG Blood poikilocytosis detection by light microscopy SLIGHT NRG Blood microcytes detection by light microscopy SLIGHT NRG Blood spherocytes detection by light microscopy SLIGHT NRG PT panel in platelet poor plasma by coagulation assay - 04/08/17 08:35 Prothrombin time (PT) in platelet poor plasma by coagulation assay 13.9 s 12.2-14.7 INR in platelet poor plasma or blood by coagulation assay 1.1 0.8-1.4 Activated partial thromboplastin time (aPTT) in platelet poor plasma bycoagulation assay - 04/08/17 08:35 Activated partial thromboplastin time (aPTT) in platelet poor plasma bycoagulation assay 31 s 24-35 Fibrin D-dimer FEU measurement in platelet poor plasma (mass/volume) - 08:35 Fibrin D-dimer FEU measurement in platelet poor plasma (mass/volume) 0.82 ug/mL 0.00-0.49 Serum or plasma troponin i.cardiac measurement (mass/volume) - 04/08/17 08:35 Serum or plasma troponin i.cardiac measurement (mass/volume) < ng/ mL <0.30 Bacterial blood culture - 04/08/17 08:35 FREE TEXT EXTERNAL SENSITIVITY REPORTED 04/10 06:40 NRG QUANTITY OF GROWTH . [facility] Bacterial blood culture SEE COMMEN [facility] Bacterial susceptibility panel - 04/08/17 08:35 Gentamicin susceptibility test by minimum inhibitory concentration < = NRG Trimethoprim/sulfamethoxazole susceptibility test by minimum inhibitoryconcentration S NRG Ampicillin susceptibility test by minimum inhibitory concentration > = NRG Tobramycin susceptibility test by minimum inhibitory concentration < = NRG Cefazolin susceptibility test by minimum inhibitory concentration < = NRG Ceftriaxone susceptibility test by minimum inhibitory concentration <= NRG Ampicillin/sulbactam susceptibility test by minimum inhibitory concentration S NRG Piperacillin/tazobactam susceptibility test by minimum inhibitory concentration S NRG Ciprofloxacin susceptibility test by minimum inhibitory concentration <= NRG Meropenem susceptibility test by minimum inhibitory concentration < = NRG Aztreonam susceptibility test by minimum inhibitory concentration < = NRG Extended spectrum beta lactamase (ESBL) producing bacteria susceptibility test by minimum inhibitory concentration - [facility] Complete urinalysis with reflex to culture - 04/08/17 09:00 Urine color determination YELLOW NRG Urine clarity determination CLEAR NRG Urine pH measurement by test strip 7 5-9 Specific gravity of urine by test strip 1.005 1.016- 1.022 Urine protein assay by test strip, semi-quantitative 2+ NEGATIVE Urine glucose detection by automated test strip NEGATIVE NEGATIVE Erythrocytes detection in urine sediment by light microscopy 3+ NEGATIVE Urine ketones detection by automated test strip NEGATIVE NEGATIVE Urine nitrite detection by test strip NEGATIVE NEGATIVE Urine total bilirubin detection by test strip NEGATIVE NEGATIVE Urine urobilinogen measurement by automated test strip (mass/volume) NORMAL NORMAL Urine leukocyte esterase detection by dipstick 2+ NEGATIVE Automated urine sediment erythrocyte count by microscopy (number/high power field) [HPF] NRG Automated urine sediment leukocyte count by microscopy (number/high power field ) [HPF] NRG Bacteria detection in urine sediment by light microscopy LARGE NRG Squamous epithelial cells detection in urine sediment by light microscopy 0-2 NRG Crystals detection in urine sediment by light microscopy NONE NRG Casts detection in urine sediment by light microscopy NONE NRG Mucus detection in urine sediment by light microscopy NEGATIVE NRG Complete urinalysis with reflex to culture YES NRG Bacterial urine culture - 04/08/17 09:00 Bacterial urine culture [id number] NRG COLONY COUNT >100,000/ML NRG FTX;REPORTABLE SENSITIVITY REPORTED 04/10 06:40 NR Bacterial susceptibility panel - 04/08/17 09:00 Gentamicin susceptibility test by minimum inhibitory concentration < = NRG Trimethoprim/sulfamethoxazole susceptibility test by minimum inhibitoryconcentration S NRG Ampicillin susceptibility test by minimum inhibitory concentration > = NRG Tobramycin susceptibility test by minimum inhibitory concentration < = NRG Cefazolin susceptibility test by minimum inhibitory concentration 8 NRG Ceftriaxone susceptibility test by minimum inhibitory concentration <= NRG Ampicillin/sulbactam susceptibility test by minimum inhibitory concentration R NRG Piperacillin/tazobactam susceptibility test by minimum inhibitory concentration S NRG Ciprofloxacin susceptibility test by minimum inhibitory concentration <= NRG Meropenem susceptibility test by minimum inhibitory concentration < = NRG Nitrofurantoin susceptibility test by minimum inhibitory concentration <= NRG Aztreonam susceptibility test by minimum inhibitory concentration 2 NRG Extended spectrum beta lactamase (ESBL) producing bacteria susceptibility test by minimum inhibitory concentration - NR Bacterial blood culture - 04/08/17 09:14 Bacterial blood culture NG NRG Complete blood count (CBC) with automated white blood cell (WBC) differential - 04/09/17 05:50 Blood leukocytes automated count (number/volume) 10.0 10*3/uL 4.3-11.0 Blood erythrocytes automated count (number/volume) 4.04 10*6/uL 4.35-5.85 Venous blood hemoglobin measurement (mass/volume) 10.3 g/dL 11.5-16.0 Blood hematocrit (volume fraction) 32 % 35-52 Automated erythrocyte mean corpuscular volume 79 [foz_us] 80-99 Automated erythrocyte mean corpuscular hemoglobin (mass per erythrocyte) 26 pg 25-34 Automated erythrocyte mean corpuscular hemoglobin concentration measurement ( mass/volume) 32 g/dL 32-36 Automated erythrocyte distribution width ratio 17.8 % 10.0-14.5 Automated blood platelet count (count/volume) 212 10*3/uL 130-400 Automated blood platelet mean volume measurement 11.0 [foz_us] 7.4-10.4 Automated blood neutrophils/100 leukocytes 79 % 42-75 Automated blood lymphocytes/100 leukocytes 7 % 12-44 Blood monocytes/100 leukocytes 11 % 0-12 Automated blood eosinophils/100 leukocytes 2 % 0-10 Automated blood basophils/100 leukocytes 0 % 0-10 Blood neutrophils automated count (number/volume) 7.9 10*3 1.8-7.8 Blood lymphocytes automated count (number/volume) 0.7 10*3 1.0-4.0 Blood monocytes automated count (number/volume) 1.1 10*3 0.0-1.0 Automated eosinophil count 0.2 10*3/uL 0.0-0.3 Automated blood basophil count (count/volume) 0.0 10*3/uL 0.0-0.1 Comprehensive metabolic panel - 04/09/17 05:50 Serum or plasma sodium measurement (moles/volume) 139 mmol/L 135-145 Serum or plasma potassium measurement (moles/volume) 4.0 mmol/L 3.6-5.0 Serum or plasma chloride measurement (moles/volume) 108 mmol/L 98-107 Carbon dioxide 23 mmol/L 21-32 Serum or plasma anion gap determination (moles/volume) 8 mmol/L 5-14 Serum or plasma urea nitrogen measurement (mass/volume) 28 mg/dL 7-18 Serum or plasma creatinine measurement (mass/volume) 1.01 mg/dL 0.60-1.30 Serum or plasma urea nitrogen/creatinine mass ratio 28 NRG Serum or plasma creatinine measurement with calculation of estimated glomerular filtration rate 52 NRG Serum or plasma glucose measurement (mass/volume) 98 mg/dL 70-105 Serum or plasma calcium measurement (mass/volume) 7.9 mg/dL 8.5-10.1 Serum or plasma total bilirubin measurement (mass/volume) 1.0 mg/dL 0.1-1.0 Serum or plasma alkaline phosphatase measurement (enzymatic activity/volume) 83 U/L 40-136 Serum or plasma aspartate aminotransferase measurement (enzymatic activity/ volume) 19 U/L 5-34 Serum or plasma alanine aminotransferase measurement (enzymatic activity/volume ) 25 U/L 0-55 Serum or plasma protein measurement (mass/volume) 5.4 g/dL 6.4-8.2 Serum or plasma albumin measurement (mass/volume) 3.0 g/dL 3.2-4.5 Complete blood count (CBC) with automated white blood cell (WBC) differential - 04/10/17 04:57 Blood leukocytes automated count (number/volume) 8.1 10*3/uL 4.3-11.0 Blood erythrocytes automated count (number/volume) 4.22 10*6/uL 4.35-5.85 Venous blood hemoglobin measurement (mass/volume) 10.7 g/dL 11.5-16.0 Blood hematocrit (volume fraction) 33 % 35-52 Automated erythrocyte mean corpuscular volume 79 [foz_us] 80-99 Automated erythrocyte mean corpuscular hemoglobin (mass per erythrocyte) 25 pg 25-34 Automated erythrocyte mean corpuscular hemoglobin concentration measurement ( mass/volume) 32 g/dL 32-36 Automated erythrocyte distribution width ratio 17.8 % 10.0-14.5 Automated blood platelet count (count/volume) 229 10*3/uL 130-400 Automated blood platelet mean volume measurement 10.5 [foz_us] 7.4-10.4 Automated blood neutrophils/100 leukocytes 75 % 42-75 Automated blood lymphocytes/100 leukocytes 12 % 12-44 Blood monocytes/100 leukocytes 9 % 0-12 Automated blood eosinophils/100 leukocytes 4 % 0-10 Automated blood basophils/100 leukocytes 0 % 0-10 Blood neutrophils automated count (number/volume) 6.1 10*3 1.8-7.8 Blood lymphocytes automated count (number/volume) 0.9 10*3 1.0-4.0 Blood monocytes automated count (number/volume) 0.7 10*3 0.0-1.0 Automated eosinophil count 0.4 10*3/uL 0.0-0.3 Automated blood basophil count (count/volume) 0.0 10*3/uL 0.0-0.1 Comprehensive metabolic panel - 04/10/17 04:57 Serum or plasma sodium measurement (moles/volume) 139 mmol/L 135-145 Serum or plasma potassium measurement (moles/volume) 4.1 mmol/L 3.6-5.0 Serum or plasma chloride measurement (moles/volume) 108 mmol/L 98-107 Carbon dioxide 19 mmol/L 21-32 Serum or plasma anion gap determination (moles/volume) 12 mmol/L 5-14 Serum or plasma urea nitrogen measurement (mass/volume) 18 mg/dL 7-18 Serum or plasma creatinine measurement (mass/volume) 0.80 mg/dL 0.60-1.30 Serum or plasma urea nitrogen/creatinine mass ratio 23 NRG Serum or plasma creatinine measurement with calculation of estimated glomerular filtration rate > NRG Serum or plasma glucose measurement (mass/volume) 95 mg/dL 70-105 Serum or plasma calcium measurement (mass/volume) 8.2 mg/dL 8.5-10.1 Serum or plasma total bilirubin measurement (mass/volume) 0.5 mg/dL 0.1-1.0 Serum or plasma alkaline phosphatase measurement (enzymatic activity/volume) 97 U/L 40-136 Serum or plasma aspartate aminotransferase measurement (enzymatic activity/ volume) 17 U/L 5-34 Serum or plasma alanine aminotransferase measurement (enzymatic activity/volume ) 21 U/L 0-55 Serum or plasma protein measurement (mass/volume) 5.4 g/dL 6.4-8.2 Serum or plasma albumin measurement (mass/volume) 3.0 g/dL 3.2-4.5 Serum or plasma lithium measurement (moles/volume) - 04/10/17 04:57 BNP level 113.2 pg/mL <100.0 C DIFFICILE AG + TOXIN A/B. - 04/10/17 11:51 RESULTS NEGATIVE FOR ANTIGEN AND TOXIN A/B [facility] Bacterial urine culture - 04/13/17 10:18 URINE CULTURE RESULTS <10,000/ML [facility] Complete blood count (CBC) with automated white blood cell (WBC) differential - 04/14/17 05:18 Blood leukocytes automated count (number/volume) 9.0 10*3/uL 4.3-11.0 Blood erythrocytes automated count (number/volume) 4.64 10*6/uL 4.35-5.85 Venous blood hemoglobin measurement (mass/volume) 11.9 g/dL 11.5-16.0 Blood hematocrit (volume fraction) 37 % 35-52 Automated erythrocyte mean corpuscular volume 79 [foz_us] 80-99 Automated erythrocyte mean corpuscular hemoglobin (mass per erythrocyte) 26 pg 25-34 Automated erythrocyte mean corpuscular hemoglobin concentration measurement ( mass/volume) 32 g/dL 32-36 Automated erythrocyte distribution width ratio 18.1 % 10.0-14.5 Automated blood platelet count (count/volume) 265 10*3/uL 130-400 Automated blood platelet mean volume measurement 10.6 [foz_us] 7.4-10.4 Automated blood neutrophils/100 leukocytes 70 % 42-75 Automated blood lymphocytes/100 leukocytes 16 % 12-44 Blood monocytes/100 leukocytes 9 % 0-12 Automated blood eosinophils/100 leukocytes 5 % 0-10 Automated blood basophils/100 leukocytes 1 % 0-10 Blood neutrophils automated count (number/volume) 6.3 10*3 1.8-7.8 Blood lymphocytes automated count (number/volume) 1.4 10*3 1.0-4.0 Blood monocytes automated count (number/volume) 0.8 10*3 0.0-1.0 Automated eosinophil count 0.4 10*3/uL 0.0-0.3 Automated blood basophil count (count/volume) 0.1 10*3/uL 0.0-0.1 Encounters ACCT No. Visit Date/Time Discharge Status Pt. Type Provider Facility Loc./Unit Complaint [id number] 05/28/2017 17:00:00 05/28/2017 23:59:59 CLS Outpatient LEDA RANGEL MD [facility] CR3 WELLNESS [id number] 04/08/2017 09:52:00 04/14/2017 10:45:00 DIS Inpatient TARAH KUMARI DO [facility] 4TH SEPSIS;UTI [id number] 09/03/2016 12:21:00 09/03/2016 23:59:59 CLS Outpatient JULIOCESAR GRACIA DO [facility] LAB M81.0 [id number] 07/21/2016 09:22:00 07/21/2016 23:59:59 CLS Outpatient GUSTABO WALTERS MD [facility] RAD RECURRENT UTI [id number] 07/21/2016 09:17:00 07/21/2016 23:59:59 CLS Outpatient LEDA RANGEL MD [facility] CARD BACK PAIN [id number] 06/18/2016 08:55:00 06/18/2016 23:59:59 CLS Outpatient NICHOLAS MEDINA APRN [facility] RAD M81.0 [id number] 06/11/2016 09:45:00 06/11/2016 23:59:59 CLS Outpatient LEDA RANGEL MD [facility] LAB ELEVATED WBS [id number] 05/18/2016 09:35:00 05/18/2016 23:59:59 CLS Outpatient NICHOLAS MEDINA APRN [facility] CARD CHEST HEAVINESS [id number] 07/31/2015 14:30:00 07/31/2015 15:49:00 DIS Outpatient STEVE WALL [facility] REHAB [id number] 01/31/2014 14:17:00 01/31/2014 23:59:59 CLS Outpatient LEDA RANGEL MD [facility] RAD [id number] 08/22/2013 11:36:00 08/22/2013 17:25:00 DIS Outpatient [id number] 08/17/2013 07:19:00 08/17/2013 23:59:59 CLS Outpatient [id number] 01/26/2013 09:20:00 01/26/2013 23:59:59 CLS Outpatient [id number] 06/04/2017 15:13:00 ACT Inpatient ANIBAL ABRAHAM MD [address] ARF. [id number] 01/22/2017 00:01:00 02/21/2017 23:59:00 DIS Outpatient Vidya Lynn [facility] [id number] 12/22/2016 10:05:00 01/21/2017 23:59:00 DIS Outpatient Lnyn Dasilva [facility] TPC TPC [id number] 12/28/2016 11:51:00 01/07/2017 08:19:00 DIS Outpatient Sejal Carver [facility] PTS PTS [id number] 12/10/2016 13:40:00 12/21/2016 06:35:00 DIS Inpatient Deonte Russell [facility] SNF UTI ANEMIA [id number] 12/02/2016 18:33:00 12/02/2016 23:13:00 DIS Emergency Xavier Marroquin [facility] [id number] 12/22/2016 00:00:00 Document Registration 0000 10/09/2016 13:53:57 10/09/2016 23:59:59 CLS Outpatient [id number] 01/01/2017 13:03:00 01/01/2017 23:59:59 CLS Outpatient [facility] [id number] 12/30/2016 14:46:00 12/30/2016 23:59:59 CLS Outpatient [facility] [id number] 12/25/2016 14:46:00 12/25/2016 23:59:59 CLS Outpatient [facility] [id number] 12/22/2016 09:46:00 12/22/2016 23:59:59 CLS Outpatient [facility] [id number] 12/21/2016 17:15:00 12/21/2016 23:59:59 CLS Outpatient [facility] [id number] 12/02/2016 16:16:00 12/02/2016 23:59:59 CLS Outpatient [facility]
--- OUTSIDE RECORDS SUMMARY | 2017-06-06 07:54 | XMS REPORT | Encounter Summary ---
Author Author [facility] Organization [facility] Address Unknown Phone Unavailable Care Team Providers Care Sterile Supply Technician Name Role Phone Boris Richter MD 21 Sathya Macdonald MD PCP Reason for Visit * Reason Comments Urinary Incontinence Encounter Details Date Type Department Care Team Description 05/31/2017 Office Visit [facility] Darvin Swenson MD Urinary incontinence, Physicians - Urology [address] unspecified type (Primary 2ND FLOOR POD A [place] 3016 Dx); [address] [place] [address] Colovesical fistula OFFICE BL [phone] [place] [address] Social History Tobacco Use Types [...] Urine - Urine,[facility]IN LAB [address] [place] [address] in this encounter Visit Diagnoses Diagnosis Urinary incontinence, unspecified type - Primary Colovesical fistula Intestinovesical fistula
--- OUTSIDE RECORDS SUMMARY | 2017-06-06 07:54 | XMS REPORT | Clinical Summary ---
Author Author [facility] Organization [facility] Address Unknown Phone Unavailable Care Team Providers Care Drywall Boardhanger Name Role Phone Boris Richter MD 21 Sathya Macdonald MD PCP Source Comments Some departments are not documenting in the electronic medical record. 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 Overview: Added automatically from request for surgery [id number] Pelvic prolapse 10/08/2016 Overview: History: Pelvic Surgery [...] Overview: Added automatically from request for surgery [id number] Encounters Date Type Specialty Care Team Description [...] 36.6 C (97.9 F) 03/02/2017 3:15 PM [employer] Respiratory Rate 16 11/27/2016 12:43 PM CDT Oxygen Saturation 94% 03/02/2017 3:35 PM [employer] Inhaled Oxygen - - Concentration Weight 60 [...] INFLUENZA VACCINE 11/22/2017 Implants Implanted Type Area Houseperson Device Expiration Model / Identifier Date Serial / Lot Device Closure 70cm 6fr Angio-Seal Right: [employer] MED 07/22/2017 [id number] / Vip .035in Vascular - Sn/A Femoral N/A / Implanted: Qty: 1 on 10/22/2016 by Artery [id number] Anton Joseph MD Stent Ureteral 6fr 26cm Pigtail N/A: [place] 09/16/2019 [id number] Curve Taper Tip Bladder Theodore - Ureter SCIENTIFIC 0 / [id number] UROLOGY [id number] Implanted: Qty: 1 on 11/13/2016 by Lara / Darvin Swenson MD [id number] Stent Ureteral 6fr 26cm Pigtail N/A: [place] 08/24/2019 [id number] Curve Taper Tip Bladder Theodore - Ureter SCIENTIFIC 0 / [id number] UROLOGY [id number] Implanted: Qty: 1 on 11/13/2016 by Darvin Ahumada MD [id number] Results * CULTURE-URINE W/SENSITIVITY (05/31/2017 3:48 PM) Component Value Ref Range Battery Name URINE CULTURE Specimen Description URINE, CLEAN CATCH Special Requests NONE Culture 3 OR MORE ORGANISMS PRESENT,INDICATING CONTAMINATION. PLEASE SUBMIT ANOTHER SPECIMEN. Report Status FINAL 06/02/2017 Specimen Performing Laboratory Urine - Urine,Clean Catch MAIN LAB [address] [place] [address] from Last 3 Months
--- OUTSIDE RECORDS SUMMARY | 2017-06-06 07:54 | XMS REPORT | Encounter Summary ---
Author Author [facility] Organization [facility] Address Unknown Phone Unavailable Care Team Providers Care Tobacco Scrap Sifter Name Role Phone Boris Richter MD 21 Sathya Macdonald MD PCP Encounter Details Date Type Department Care Team Description 06/03/2017 Orders Only [facility] Darvin Swenson MD Gross hematuria (Primary Physicians - Urology [address] Dx) 2ND FLOOR POD A [address] [place] [address] OFFICE BLDG [phone] [place] [address] Social History Tobacco Use Types [...]
--- OUTSIDE RECORDS SUMMARY | 2017-06-06 07:54 | XMS REPORT | Encounter Summary ---
Author Author [facility] Organization [facility] Address Unknown Phone Unavailable Care Team Providers Care Quality Head Name Role Phone Boris Richter MD 21 Sathya Macdonald MD PCP Encounter Details Date Type Department Care Team Description 05/31/2017 [facility] Darvin Swenson MD Unspecified urinary Encounter [address] [place] [place] [address] [address] [place] [address] [phone] Social History Tobacco Use Types Packs/Day Years [...] - Urine,Clean Catch [facility] [address] [place] [address] in this encounter Visit Diagnoses Diagnosis Urinary incontinence, unspecified type Admitting Diagnoses Diagnosis Unspecified urinary incontinence
--- OUTSIDE RECORDS SUMMARY | 2017-06-06 07:54 | XMS REPORT | Encounter Summary ---
Author Author [facility] Organization [facility] Address Unknown Phone Unavailable Care Team Providers Care Cigarette Catcher Name Role Phone Boris Richter MD 21 Sathya Macdonald MD PCP Reason for Visit * Reason Comments Results Encounter Details Date Type Department Care Team Description 06/03/2017 Telephone [facility] Darvin Swenson MD Results Physicians - Urology [address] [facility] 2ND FLOOR POD A [address] [facility] [place] [address] OFFICE BLDG [phone] [place] [address] Social History Tobacco Use Types [...]
--- OUTSIDE RECORDS SUMMARY | 2017-06-06 07:56 | XMS REPORT | Continuity of Care Document ---
Author Author [facility] Organization [facility] Address Unknown Phone Unavailable Allergies Active Description [...] PEANUTS PEANUTS Unknown N/A 08/22/2013 Yes celecoxib [id number] Drug Allergy Unknown N/A 04/08/2017 Yes oxybutynin [id number] Drug Allergy Unknown N/A 04/08/2017 Yes peanut [id number] Drug Allergy Unknown N/A 04/08/2017 Yes Penicillins [id number] Drug Allergy Unknown N/A 04/08/2017 Yes Sulfa (Sulfonamide Antibiotics) [id number] Drug Allergy Unknown N/A 2017 Medications Medication [...] Probiotic Formula oral capsule hydrocortisone topical 2016 [place] hydrocortisone 2.5% topical cream aztreonam 12/02/2016 12/10/2016 [...] TOP betamethasone-clotrimazole topical 0.05%-1% cream belladonna-opium 12/20/2016 [place] belladonna-opium 16.2 mg-30 mg rectal suppository Problems [...] cause of diseases classified elsewhere 01/21/2017 Lynn aDsilva Final N39.0 Urinary tract infection, site not [...] Procedures Code Description [place] [address] Intravenous infusion, for therapy, proph TATIANA BURGESS 12/02/2016 72914 Emergency department visit for the evalu TATIANA [...] 90 Blood reticulocytes/100 erythrocytes 1.66 % 0.50-2.40 [id number] - 07/21/16 09:33 Serum or plasma urea nitrogen measurement (mass/volume) 39 mg/dL 7-18 Serum or plasma creatinine measurement (mass/volume) 1.09 mg/dL 0.60-1.30 Serum or plasma urea nitrogen/creatinine mass ratio 36 NRG Serum or plasma creatinine measurement with calculation of estimated glomerular filtration rate 48 [facility] Comprehensive metabolic panel - 09/03/16 12:44 [...] 0.1- 15.0 Pathology consultation and report FOOTNOTE [facility] 24 hour urine protein fractions interpretation by electrophoresis [facility] [id number] [facility] Serum protein electrophoresis - 09/03/16 12:44 Serum or plasma protein measurement (mass/volume) 6.6 % 6.1-8.1 Pathology consultation and report SEE PATH REPORT [facility] Serum or plasma protein fractions interpretation by electrophoresis [facility] [id number] [facility] 25-hydroxyvitamin D measurement - 09/03/16 12:44 25-hydroxy vitamin D measurement 45 % 30-100 TYPE AND SCREEN CONVERTABLE TO XM - 12/02/16 19:21 ABO/Rh A POS [facility] Antibody Screen NEG [facility] Specimen Or Xm Expiration 12/05/2016 [facility] CBCA - 12/02/16 19:38 WBC Count 9.1 X1000/cmm 4.0-10.5 RBC Count 2.87 [id number]/cmm 4.00-5.40 Hemoglobin 7.4 g/dL 12.0-16.0 Hematocrit 23.6 [...] NEG Ketones, UA TRACE mg/dL NEG Specific Rico, UA 1.025 1.003-1.030 Blood, UA LARGE NEG [...] SENT FOR CULTURE NOCULT Specimen Description URINE [facility] URINE CULTURE - 12/02/16 20:21 Specimen Description URINE NR Special Requests NONE Reflexed from [id number] NRG [place] Count >100,000 CFU/ML NRG Culture JASE ALBICANS MANY NRG Report Status FINAL 12/05/2016 NRG Organism CANALB NRG Culture Status NR METHOD LUCIANO - 12/02/16 20:21 AMPICILLIN >=32 RESISTANT NRG CIPROFLOXACIN >=8 RESISTANT NRG LEVOFLOXACIN >=8 RESISTANT NRG NITROFURANTOIN 128 RESISTANT NRG BENZYLPENICILLIN >=64 RESISTANT NRG TETRACYCLINE <=1 SUSCEPTIBLE NRG VANCOMYCIN <=0.5 SUSCEPTIBLE NRG BETA LACTAMASE NEGATIVE [facility] BASIC METABOLIC PANEL - 12/11/16 06:22 Sodium 137 mmol/L 135-145 Potassium 3.0 mmol/L 3.6-5.0 Chloride 97 mmol/L 101-111 Carbon Dioxide, Total 27 mmol/L 21-31 Glucose Level 110 mg/dL 70-100 BUN 14 mg/dL 6-20 Creatinine 0.9 mg/dL 0.5-1.2 Calcium 8.6 mg/dL 8.5-10.5 Calculated GFR 59.5 mL/min/1.73sq >60 Anion Gap 13 mmol/L [facility] BASIC METABOLIC PANEL - 12/13/16 05:42 Sodium 139 mmol/L 135-145 Potassium 3.5 mmol/L 3.6-5.0 Chloride 99 mmol/L 101-111 Carbon Dioxide, Total 27 mmol/L 21-31 Glucose Level 101 mg/dL 70-100 BUN 17 mg/dL 6-20 Creatinine 0.8 mg/dL 0.5-1.2 Calcium 8.5 mg/dL 8.5-10.5 Calculated GFR >60.0 mL/min/1.73sq >60 Anion Gap 13 mmol/L [facility] MAGNESIUM - 12/13/16 05:42 Magnesium 1.8 [...] NEG Ketones, UA NEGATIVE mg/dL NEG Specific Rico, UA >1.030 1.003-1.030 Blood, UA LARGE NEG [...] FOR CULTURE NOCULT Specimen Description URINE, CATHETERIZED [facility] URINE CULTURE - 12/14/16 19:54 Specimen Description URINE [facility] Special Requests NONE Reflexed from [id number] NRG [place] Count 50,000 CFU/ML NRG Culture JASE ALBICANS [...] 52.7 mL/min/1.73sq >60 Anion Gap 12 mmol/L [facility] BASIC METABOLIC PANEL - 12/20/16 06:28 Sodium 131 mmol/L 135-145 Potassium 4.7 mmol/L 3.6-5.0 Chloride 95 mmol/L 101-111 Carbon Dioxide, Total 25 mmol/L 21-31 Glucose Level 114 mg/dL 70-100 BUN 31 mg/dL 6-20 Creatinine 1.2 mg/dL 0.5-1.2 Calcium 9.0 mg/dL 8.5-10.5 Calculated GFR 42.7 mL/min/1.73sq >60 Anion Gap 11 mmol/L [facility] CREATINE KINASE (CPK) - 12/20/16 06:28 Creatine Kinase 617 U/L 22-269 BASIC METABOLIC PANEL - 12/22/16 11:13 Sodium 136 mmol/L 135-145 Potassium 4.6 mmol/L 3.6-5.0 Chloride 98 mmol/L 101-111 Carbon Dioxide, Total 22 mmol/L 21-31 Glucose Level 183 mg/dL 70-100 BUN 38 mg/dL 6-20 Creatinine 1.2 mg/dL 0.5-1.2 Calcium 9.3 mg/dL 8.5-10.5 Calculated GFR 42.7 mL/min/1.73sq >60 Anion Gap 16 mmol/L [facility] CBCA - 12/22/16 11:14 WBC Count 11.4 X1000/cmm 4.0-10.5 RBC Count 3.94 [id number]/cmm 4.00-5.40 Hemoglobin 10.1 g/dL 12.0-16.0 Hematocrit 31.3 [...] Count 10.4 X1000/cmm 4.0-10.5 RBC Count 3.87 [id number]/cmm 4.00-5.40 Hemoglobin 9.8 g/dL 12.0-16.0 Hematocrit 31.2 [...] 04/10 06:40 NRG QUANTITY OF GROWTH . [facility] Bacterial blood culture SEE COMMEN [facility] Bacterial susceptibility panel - 04/08/17 08:35 [...] susceptibility test by minimum inhibitory concentration - [facility] Complete urinalysis with reflex to culture [...] culture - 04/08/17 09:00 Bacterial urine culture [id number] NRG COLONY COUNT >100,000/ML NRG FTX;REPORTABLE SENSITIVITY [...] RESULTS NEGATIVE FOR ANTIGEN AND TOXIN A/B [facility] Bacterial urine culture - 04/13/17 10:18 URINE CULTURE RESULTS <10,000/ML [facility] Complete blood count (CBC) with automated [...] Status Pt. Type Provider Facility Loc./Unit Complaint [id number] 05/28/2017 17:00:00 05/28/2017 23:59:59 CLS Outpatient LEDA RANGEL MD [facility] CR3 WELLNESS [id number] 04/08/2017 09:52:00 04/14/2017 10:45:00 DIS Inpatient TARAH KUMARI DO [facility] 4TH SEPSIS;UTI [id number] 09/03/2016 12:21:00 09/03/2016 23:59:59 CLS Outpatient JULIOCESAR GRACIA DO [facility] LAB M81.0 [id number] 07/21/2016 09:22:00 07/21/2016 23:59:59 CLS Outpatient GUSTABO WALTERS MD [facility] RAD RECURRENT UTI [id number] 07/21/2016 09:17:00 07/21/2016 23:59:59 CLS Outpatient LEDA RANGEL MD [facility] CARD BACK PAIN [id number] 06/18/2016 08:55:00 06/18/2016 23:59:59 CLS Outpatient NICHOLAS MEDINA APRN [facility] RAD M81.0 [id number] 06/11/2016 09:45:00 06/11/2016 23:59:59 CLS Outpatient LEDA RANGEL MD [facility] LAB ELEVATED WBS [id number] 05/18/2016 09:35:00 05/18/2016 23:59:59 CLS Outpatient NICHOLAS MEDINA APRN [facility] CARD CHEST HEAVINESS [id number] 07/31/2015 14:30:00 07/31/2015 15:49:00 DIS Outpatient STEVE WALL [facility] REHAB [id number] 01/31/2014 14:17:00 01/31/2014 23:59:59 CLS Outpatient LEDA RANGEL MD [facility] RAD [id number] 08/22/2013 11:36:00 08/22/2013 17:25:00 DIS Outpatient [id number] 08/17/2013 07:19:00 08/17/2013 23:59:59 CLS Outpatient [id number] 01/26/2013 09:20:00 01/26/2013 23:59:59 CLS Outpatient [id number] 06/04/2017 15:13:00 ACT Inpatient ANIBAL ABRAHAM MD [facility] [address] ARF. [id number] 01/22/2017 00:01:00 02/21/2017 23:59:00 DIS Outpatient Vidya Lynn [facility] [id number] 12/22/2016 10:05:00 01/21/2017 23:59:00 DIS Outpatient Lynn Dasilva [facility] TPC TPC [id number] 12/28/2016 11:51:00 01/07/2017 08:19:00 DIS Outpatient Sejal Carver [facility] PTS PTS [id number] 12/10/2016 13:40:00 12/21/2016 06:35:00 DIS Inpatient Deonte Russell [facility] SNF UTI ANEMIA [id number] 12/02/2016 18:33:00 12/02/2016 23:13:00 DIS Emergency Xavier Marroquin [facility] [id number] 12/22/2016 00:00:00 Document Registration 0000 10/09/2016 13:53:57 10/09/2016 23:59:59 CLS Outpatient [id number] 01/01/2017 13:03:00 01/01/2017 23:59:59 CLS Outpatient [facility] [id number] 12/30/2016 14:46:00 12/30/2016 23:59:59 CLS Outpatient [facility] [id number] 12/25/2016 14:46:00 12/25/2016 23:59:59 CLS Outpatient [facility] [id number] 12/22/2016 09:46:00 12/22/2016 23:59:59 CLS Outpatient [facility] [id number] 12/21/2016 17:15:00 12/21/2016 23:59:59 CLS Outpatient [facility] [id number] 12/02/2016 16:16:00 12/02/2016 23:59:59 CLS Outpatient [facility]
--- OUTSIDE RECORDS SUMMARY | 2017-06-06 08:13 | XMS REPORT | Continuity of Care Document ---
Author Author [employer] Organization [facility] Address Unknown Phone Unavailable Care Team Providers Care Software Integration Developer Name Role Phone [employer] Unavailable Unavailable Problems Medications Allergies, Adverse Reactions, Alerts Immunizations Results Vital Signs Encounters Location Location Details Encounter Type Encounter Number Reason For Visit Attending Provider ADM Date DC Date Status Source CA SERIES [id number] SHERMAN COYLE 10/13/20162016 Active [facility] OUTPATIENT [id number] 10/19/2016 Active [facility] OUTPATIENT [id number] SHERMAN COYLE 10/21/20162016 Active [facility] OUTPATIENT [id number] SHERMAN COYLE 10/21/20162016 Active [facility] OUTPATIENT [id number] SHERMAN COYLE 11/06/2016 Active [facility] INPATIENT [id number] SHERMAN COYLE 11/13/20162016 Active [facility] OUTPATIENT [id number] SHERMAN COYLE 11/27/2016 Active [facility] INPATIENT [id number] ALLY KING 12/03/2016 12/10/2016 Active [facility] OUTPATIENT [id number] WILLA GLORIA 12/07/2016 Active [facility] OUTPATIENT [id number] WILLA GLORIA 12/21/20162016 Active [facility] SPECIMEN [id number] WILLA GLORIA 01/04/20172016 Active [facility] OP SURGERY [id number] DANA KAUR 03/02/20172017 Active [facility] SPECIMEN [id number] WILLA GLORIA 05/31/20172017 Active [facility] O WILLA GLORIA Active [facility] OP SURGERY [id number] DANA KAUR Active [facility] Procedures Plan of Care Social History Assessment and Plan Family History Advance Directives Functional Status
--- OUTSIDE RECORDS SUMMARY | 2017-06-06 08:14 | XMS REPORT | Clinical Summary ---
Author Author [facility] Organization [facility] Address Unknown Phone Unavailable Care Team Providers Care Supervisor Malted Milk Name Role Phone Boris Richter MD 21 Sathya Macdonald MD PCP Source Comments Some departments are not documenting in the electronic medical record. 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 Overview: Added automatically from request for surgery [id number] Pelvic prolapse 10/08/2016 Overview: History: Pelvic Surgery [...] Overview: Added automatically from request for surgery [id number] Encounters Date Type Specialty Care Team Description [...] 36.6 C (97.9 F) 03/02/2017 3:15 PM [facility] Respiratory Rate 16 11/27/2016 12:43 PM CDT Oxygen Saturation 94% 03/02/2017 3:35 PM [facility] Inhaled Oxygen - - Concentration Weight 60 [...] INFLUENZA VACCINE 11/22/2017 Implants Implanted Type Area Pcb Designer Device Expiration Model / Identifier Date Serial / Lot Device Closure 70cm 6fr Angio-Seal Right: [employer] MED 07/22/2017 [id number] / Vip .035in Vascular - Sn/A Femoral N/A / Implanted: Qty: 1 on 10/22/2016 by Artery [id number] Anton Joseph MD Stent Ureteral 6fr 26cm Pigtail N/A: [place] 09/16/2019 [id number] Curve Taper Tip Bladder Theodore - Ureter SCIENTIFIC 0 / [id number] UROLOGY [id number] Implanted: Qty: 1 on 11/13/2016 by Lara / Darvin Swenson MD [id number] Stent Ureteral 6fr 26cm Pigtail N/A: [place] 08/24/2019 [id number] Curve Taper Tip Bladder Theodore - Ureter SCIENTIFIC 0 / [id number] UROLOGY [id number] Implanted: Qty: 1 on 11/13/2016 by Darvin Ahumada MD [id number] Results * CULTURE-URINE W/SENSITIVITY (05/31/2017 3:48 PM) Component Value Ref Range Battery Name URINE CULTURE Specimen Description URINE, CLEAN CATCH Special Requests NONE Culture 3 OR MORE ORGANISMS PRESENT,INDICATING CONTAMINATION. PLEASE SUBMIT ANOTHER SPECIMEN. Report Status FINAL 06/02/2017 Specimen Performing Laboratory Urine - Urine,Clean Catch MAIN LAB [address] [place] [address] from Last 3 Months
--- OUTSIDE RECORDS SUMMARY | 2017-06-06 08:14 | XMS REPORT | Encounter Summary ---
Author Author [facility] Organization [facility] Address Unknown Phone Unavailable Care Team Providers Care Shot Core Drill Operator Name Role Phone Boris Richter MD 21 Sathya Macdonald MD PCP Reason for Visit * Reason Comments Urinary Incontinence Encounter Details Date Type Department Care Team Description 05/31/2017 Office Visit [facility] Darvin Swenson MD Urinary incontinence, Physicians - Urology [address] unspecified type (Primary 2ND FLOOR POD A [address] Dx); [address] [place] [address] Colovesical fistula OFFICE BL [phone] [place] [address] Social History Tobacco Use Types [...] Urine - Urine,Clean Catch MAIN LAB [address] [place] [address] in this encounter Visit Diagnoses Diagnosis Urinary incontinence, unspecified type - Primary Colovesical fistula Intestinovesical fistula
--- OUTSIDE RECORDS SUMMARY | 2017-06-06 08:14 | XMS REPORT | Encounter Summary ---
Author Author [facility] Organization [facility] Address Unknown Phone Unavailable Care Team Providers Care Aircraft Tool Maker Name Role Phone Boris Richter MD 21 Sathya Macdonald MD PCP Encounter Details Date Type Department Care Team Description 06/03/2017 Orders Only [facility] Darvin Swenson MD Gross hematuria (Primary Physicians - Urology [address] Dx) 2ND FLOOR POD A [address] [place] [address] OFFICE BLDG [phone] [place] [address] Social History Tobacco Use Types [...]
--- OUTSIDE RECORDS SUMMARY | 2017-06-06 08:14 | XMS REPORT | Encounter Summary ---
Author Author [facility] Organization [facility] Address Unknown Phone Unavailable Care Team Providers Care Materials Recycler Name Role Phone Boris Richter MD 21 Sathya Macdonald MD PCP Reason for Visit * Reason Comments Results Encounter Details Date Type Department Care Team Description 06/03/2017 Telephone [facility] Darvin Swenson MD Results Physicians - Urology [address] [facility] 2ND FLOOR POD A [address] [facility] [address] OFFICE BLDG [phone] [place] [address] Social History Tobacco Use Types [...]
--- OUTSIDE RECORDS SUMMARY | 2017-06-06 08:14 | XMS REPORT | Encounter Summary ---
Author Author [facility] Organization [facility] Address Unknown Phone Unavailable Care Team Providers Care Supervisor Bottle Machines Name Role Phone Boris Richter MD 21 Sathya Macdonald MD PCP Encounter Details Date Type Department Care Team Description 05/31/2017 [facility] Darvin Swenson MD Unspecified urinary Encounter [address] [place] [address] [address] [place] [address] [phone] Social History Tobacco Use Types Packs/Day Years [...] - Urine,Clean Catch [facility] [address] [place] [address] in this encounter Visit Diagnoses Diagnosis Urinary incontinence, unspecified type Admitting Diagnoses Diagnosis Unspecified urinary incontinence
--- OUTSIDE RECORDS SUMMARY | 2017-06-06 08:16 | XMS REPORT | Continuity of Care Document ---
Author Author [facility] Organization [facility] Address Unknown Phone Unavailable Allergies Active Description [...] PEANUTS PEANUTS Unknown N/A 08/22/2013 Yes celecoxib [id number] Drug Allergy Unknown N/A 04/08/2017 Yes oxybutynin [id number] Drug Allergy Unknown N/A 04/08/2017 Yes peanut [id number] Drug Allergy Unknown N/A 04/08/2017 Yes Penicillins [id number] Drug Allergy Unknown N/A 04/08/2017 Yes Sulfa (Sulfonamide Antibiotics) [id number] Drug Allergy Unknown N/A 2017 Medications Medication [...] Probiotic Formula oral capsule hydrocortisone topical 2016 [place] hydrocortisone 2.5% topical cream aztreonam 12/02/2016 12/10/2016 [...] TOP betamethasone-clotrimazole topical 0.05%-1% cream belladonna-opium 12/20/2016 [place] belladonna-opium 16.2 mg-30 mg rectal suppository Problems [...] Procedures Code Description [place] [address] Intravenous infusion, for therapy, proph TATIANA BURGESS 12/02/2016 54834 Emergency department visit for the evalu TATIANA [...] 90 Blood reticulocytes/100 erythrocytes 1.66 % 0.50-2.40 [id number] - 07/21/16 09:33 Serum or plasma urea nitrogen measurement (mass/volume) 39 mg/dL 7-18 Serum or plasma creatinine measurement (mass/volume) 1.09 mg/dL 0.60-1.30 Serum or plasma urea nitrogen/creatinine mass ratio 36 NRG Serum or plasma creatinine measurement with calculation of estimated glomerular filtration rate 48 [facility] Comprehensive metabolic panel - 09/03/16 12:44 Serum [...] 0.1- 15.0 Pathology consultation and report [facility] 24 hour urine protein fractions interpretation by electrophoresis [facility] [id number] [facility] Serum protein electrophoresis - 09/03/16 12:44 Serum or plasma protein measurement (mass/volume) 6.6 % 6.1-8.1 Pathology consultation and report SEE PATH REPORT [facility] Serum or plasma protein fractions interpretation by electrophoresis [facility] [id number] [facility] 25-hydroxyvitamin D measurement - 09/03/16 12:44 25-hydroxy vitamin D measurement 45 % 30-100 TYPE AND SCREEN CONVERTABLE TO XM - 12/02/16 19:21 ABO/Rh A POS [facility] Antibody Screen NEG [facility] Specimen Or Xm Expiration 12/05/2016 [facility] CBCA - 12/02/16 19:38 WBC Count 9.1 X1000/cmm 4.0-10.5 RBC Count 2.87 [id number]/cmm 4.00-5.40 Hemoglobin 7.4 g/dL 12.0-16.0 Hematocrit 23.6 [...] NEG Ketones, UA TRACE mg/dL NEG Specific [place], UA 1.025 1.003-1.030 Blood, UA LARGE NEG [...] SENT FOR CULTURE NOCULT Specimen Description URINE [facility] URINE CULTURE - 12/02/16 20:21 Specimen Description URINE NR Special Requests NONE Reflexed from [id number] NRG [place] Count >100,000 CFU/ML NRG Culture JASE ALBICANS MANY NRG Report Status FINAL 12/05/2016 NRG Organism CANALB NRG Culture Status NR METHOD LUCIANO - 12/02/16 20:21 AMPICILLIN >=32 RESISTANT NRG CIPROFLOXACIN >=8 RESISTANT NRG LEVOFLOXACIN >=8 RESISTANT NRG NITROFURANTOIN 128 RESISTANT NRG BENZYLPENICILLIN >=64 RESISTANT NRG TETRACYCLINE <=1 SUSCEPTIBLE NRG VANCOMYCIN <=0.5 SUSCEPTIBLE NRG BETA LACTAMASE NEGATIVE [facility] BASIC METABOLIC PANEL - 12/11/16 06:22 Sodium 137 mmol/L 135-145 Potassium 3.0 mmol/L 3.6-5.0 Chloride 97 mmol/L 101-111 Carbon Dioxide, Total 27 mmol/L 21-31 Glucose Level 110 mg/dL 70-100 BUN 14 mg/dL 6-20 Creatinine 0.9 mg/dL 0.5-1.2 Calcium 8.6 mg/dL 8.5-10.5 Calculated GFR 59.5 mL/min/1.73sq >60 Anion Gap 13 mmol/L [facility] BASIC METABOLIC PANEL - 12/13/16 05:42 Sodium 139 mmol/L 135-145 Potassium 3.5 mmol/L 3.6-5.0 Chloride 99 mmol/L 101-111 Carbon Dioxide, Total 27 mmol/L 21-31 Glucose Level 101 mg/dL 70-100 BUN 17 mg/dL 6-20 Creatinine 0.8 mg/dL 0.5-1.2 Calcium 8.5 mg/dL 8.5-10.5 Calculated GFR >60.0 mL/min/1.73sq >60 Anion Gap 13 mmol/L [facility] MAGNESIUM - 12/13/16 05:42 Magnesium 1.8 mg/dL [...] NEG Ketones, UA NEGATIVE mg/dL NEG Specific [place], UA >1.030 1.003-1.030 Blood, UA LARGE NEG [...] FOR CULTURE NOCULT Specimen Description URINE, CATHETERIZED [facility] URINE CULTURE - 12/14/16 19:54 Specimen Description URINE [facility] Special Requests NONE Reflexed from [id number] NRG [place] Count 50,000 CFU/ML NRG Culture JASE ALBICANS [...] 52.7 mL/min/1.73sq >60 Anion Gap 12 mmol/L [facility] BASIC METABOLIC PANEL - 12/20/16 06:28 Sodium 131 mmol/L 135-145 Potassium 4.7 mmol/L 3.6-5.0 Chloride 95 mmol/L 101-111 Carbon Dioxide, Total 25 mmol/L 21-31 Glucose Level 114 mg/dL 70-100 BUN 31 mg/dL 6-20 Creatinine 1.2 mg/dL 0.5-1.2 Calcium 9.0 mg/dL 8.5-10.5 Calculated GFR 42.7 mL/min/1.73sq >60 Anion Gap 11 mmol/L [facility] CREATINE KINASE (CPK) - 12/20/16 06:28 Creatine Kinase 617 U/L 22-269 BASIC METABOLIC PANEL - 12/22/16 11:13 Sodium 136 mmol/L 135-145 Potassium 4.6 mmol/L 3.6-5.0 Chloride 98 mmol/L 101-111 Carbon Dioxide, Total 22 mmol/L 21-31 Glucose Level 183 mg/dL 70-100 BUN 38 mg/dL 6-20 Creatinine 1.2 mg/dL 0.5-1.2 Calcium 9.3 mg/dL 8.5-10.5 Calculated GFR 42.7 mL/min/1.73sq >60 Anion Gap 16 mmol/L [facility] CBCA - 12/22/16 11:14 WBC Count 11.4 X1000/cmm 4.0-10.5 RBC Count 3.94 [id number]/cmm 4.00-5.40 Hemoglobin 10.1 g/dL 12.0-16.0 Hematocrit 31.3 [...] Count 10.4 X1000/cmm 4.0-10.5 RBC Count 3.87 [id number]/cmm 4.00-5.40 Hemoglobin 9.8 g/dL 12.0-16.0 Hematocrit 31.2 [...] 04/10 06:40 NRG QUANTITY OF GROWTH . [facility] Bacterial blood culture SEE [facility] Bacterial susceptibility panel - 04/08/17 08:35 Gentamicin [...] susceptibility test by minimum inhibitory concentration - [facility] Complete urinalysis with reflex to culture - [...] culture - 04/08/17 09:00 Bacterial urine culture [id number] NRG [place] COUNT >100,000/ML NRG FTX;REPORTABLE SENSITIVITY [...] RESULTS NEGATIVE FOR ANTIGEN AND TOXIN A/B [facility] Bacterial urine culture - 04/13/17 10:18 URINE CULTURE RESULTS <10,000/ML [facility] Complete blood count (CBC) with automated white [...] Status Pt. Type Provider Facility Loc./Unit Complaint [id number] 05/28/2017 17:00:00 05/28/2017 23:59:59 CLS Outpatient LEDA RANGEL MD [facility] CR3 WELLNESS [id number] 04/08/2017 09:52:00 04/14/2017 10:45:00 DIS Inpatient TARAH KUMARI DO [facility] 4TH SEPSIS;UTI [id number] 09/03/2016 12:21:00 09/03/2016 23:59:59 CLS Outpatient JULIOCESAR GRACIA DO [facility] LAB M81.0 [id number] 07/21/2016 09:22:00 07/21/2016 23:59:59 CLS Outpatient GUSTABO WALTERS MD [facility] RAD RECURRENT UTI [id number] 07/21/2016 09:17:00 07/21/2016 23:59:59 CLS Outpatient LEDA RANGEL MD [facility] CARD BACK PAIN [id number] 06/18/2016 08:55:00 06/18/2016 23:59:59 CLS Outpatient NICHOLAS MEDINA APRN [facility] RAD M81.0 [id number] 06/11/2016 09:45:00 06/11/2016 23:59:59 CLS Outpatient LEDA RANGEL MD [facility] LAB ELEVATED WBS [id number] 05/18/2016 09:35:00 05/18/2016 23:59:59 CLS Outpatient NICHOLAS MEDINA APRN [facility] CARD CHEST HEAVINESS [id number] 07/31/2015 14:30:00 07/31/2015 15:49:00 DIS Outpatient STEVE WALL [facility] REHAB [id number] 01/31/2014 14:17:00 01/31/2014 23:59:59 CLS Outpatient LEDA RANGEL MD [facility] RAD [id number] 08/22/2013 11:36:00 08/22/2013 17:25:00 DIS Outpatient [id number] 08/17/2013 07:19:00 08/17/2013 23:59:59 CLS Outpatient [id number] 01/26/2013 09:20:00 01/26/2013 23:59:59 CLS Outpatient [id number] 06/04/2017 15:13:00 ACT Inpatient ANIBAL ABRAHAM MD [facility] [address] ARF. [id number] 01/22/2017 00:01:00 02/21/2017 23:59:00 DIS Outpatient Vidya [facility] [id number] 12/22/2016 10:05:00 01/21/2017 23:59:00 DIS Outpatient Lynn Dasilva [facility] TPC TPC [id number] 12/28/2016 11:51:00 01/07/2017 08:19:00 DIS Outpatient Sejal [facility] PTS PTS [id number] 12/10/2016 13:40:00 12/21/2016 06:35:00 DIS Inpatient Deonte Russell [facility] SNF UTI ANEMIA [id number] 12/02/2016 18:33:00 12/02/2016 23:13:00 DIS Emergency Xavier Marroquin [facility] [id number] 12/22/2016 00:00:00 Document Registration 0000 10/09/2016 13:53:57 10/09/2016 23:59:59 CLS Outpatient [id number] 01/01/2017 13:03:00 01/01/2017 23:59:59 CLS Outpatient [facility] [id number] 12/30/2016 14:46:00 12/30/2016 23:59:59 CLS Outpatient [facility] [id number] 12/25/2016 14:46:00 12/25/2016 23:59:59 CLS Outpatient [facility] [id number] 12/22/2016 09:46:00 12/22/2016 23:59:59 CLS Outpatient [facility] [id number] 12/21/2016 17:15:00 12/21/2016 23:59:59 CLS Outpatient [facility] [id number] 12/02/2016 16:16:00 12/02/2016 23:59:59 CLS Outpatient [facility]
== END 2017-06-05 12:11 | disposition home or self-care (01) ==
LOC: EDUNIT# 13:19 → ER 13:21 → 4TH 14:13 → UNDOADMIN 14:13 → UNDOADMOB 15:13 → 4TH 15:13 → UNDODISOB 06-05 13:35
PROVIDERS: ADMIT Internal Medicine; ATTEND Internal Medicine
DX: E86.0 Dehydration (principal); E87.5 Hyperkalemia; I10 Essential (primary) hypertension; E03.9 Hypothyroidism, unspecified; K21.9 Gastro-esophageal reflux disease without esophagitis; F17.210 Nicotine dependence, cigarettes, uncomplicated; Z79.899 Other long term (current) drug therapy
CPT/HCPCS: 36415; 71046; 74176; 80048; 80053; 81000; 83605; 85025; 85652; 86060; 87040; 93005; 96360; G0378

== ENCOUNTER 2017-06-29 13:10 | Outpatient (CLI) | payer MEDICARE, BC ==
[~2017-06-29] VITALS: Ht 160 cm; Wt 61.0 kg
[~2017-06-29 13:10] MED LIST changes: +ASCO-262 PO; +CRAN450T9 PO; +DOCU250C11 PO; +EST30C VG; +NF-SOLIF5T PO; +TRIM100T PO
[2017-06-29 13:21] VITALS: BP 103/65
[2017-06-29] MEDS ORDERED: TRIM100T PO (13:32)
== END 2017-06-29 13:45 | disposition home or self-care (01) ==
LOC: PREOP 13:10
PROVIDERS: ATTEND Urology
DX: Z01.818 Encounter for other preprocedural examination (principal); N39.46 Mixed incontinence; N36.42 Intrinsic sphincter deficiency (ISD); N32.81 Overactive bladder
CPT/HCPCS: 87081

== ENCOUNTER 2017-06-30 06:28 | Day surgery (SDC) | payer MEDICARE, BC ==
[~2017-06-30] VITALS: Ht 160 cm; Wt 61.0 kg
--- OUTSIDE RECORDS SUMMARY | 2017-06-30 06:32 | XMS REPORT | Continuity of Care Document ---
Author Author [employer] Organization [facility] Address Unknown Phone Unavailable Care Team Providers Care Agriculture Scientist Name Role Phone [employer] Unavailable Unavailable Problems Medications Allergies, Adverse Reactions, Alerts Immunizations Results Vital Signs Encounters Location Location Details Encounter Type Encounter Number Reason For Visit Attending Provider ADM Date DC Date Status Source [place] SERIES [id number] SHERMAN COYLE 10/13/20162016 Active [facility] OUTPATIENT [id number] 10/19/2016 Active [facility] OUTPATIENT [id number] SHERMAN COYLE 10/21/20162016 Active [facility] OUTPATIENT [id number] SHERMAN COYLE 10/21/20162016 Active [facility] OUTPATIENT [id number] SHERMAN COYLE 11/06/2016 Active [facility] INPATIENT [id number] SHERMAN COYLE 11/13/20162016 Active [facility] OUTPATIENT [id number] SHERMAN COYLE 11/27/2016 Active [facility] INPATIENT [id number] ALLY KING 12/03/2016 12/10/2016 Active [facility] OUTPATIENT [id number] WILLA GLORIA 12/07/2016 Active [facility] OUTPATIENT [id number] WILLA GLORIA 12/21/20162016 Active [facility] SPECIMEN [id number] WILLA LGORIA 01/04/20172016 Active [facility] OP SURGERY [id number] DANA KAUR 03/02/20172017 Active [facility] SPECIMEN [id number] WILLA GLORIA 05/31/20172017 Active [facility] O WILLA GLORIA Active [facility] OP SURGERY [id number] DANA KAUR Active [facility] Procedures Plan of Care Social History Assessment and Plan Family History Advance Directives Functional Status
--- OUTSIDE RECORDS SUMMARY | 2017-06-30 06:33 | XMS REPORT | Encounter Summary ---
Author Author [facility] Organization [facility] Address Unknown Phone Unavailable Care Team Providers Care Supervisor Metal [employer] Name Role Phone Boris Richter MD 21 Sathya Macdonald MD PCP Encounter Details Date Type Department Care Team Description 05/31/2017 [facility] Darvin Swenson MD Unspecified urinary Encounter [address] [place] [address] [address] [place] [address] [phone] Social History Tobacco Use Types Packs/Day Years [...] - Urine,Clean Catch [facility] [address] [place] [address] in this encounter Visit Diagnoses Diagnosis Urinary incontinence, unspecified type Admitting Diagnoses Diagnosis Unspecified urinary incontinence
--- OUTSIDE RECORDS SUMMARY | 2017-06-30 06:33 | XMS REPORT | Encounter Summary ---
Author Author [facility] Organization [facility] Address Unknown Phone Unavailable Care Team Providers Care Database Technician Name Role Phone Boris Richter MD 21 Sathya Macdonald MD PCP Reason for Visit * Reason Comments Urinary Incontinence Encounter Details Date Type Department Care Team Description 05/31/2017 Office Visit [facility] Darvin Swenson MD Urinary incontinence, Physicians - Urology [address] unspecified type (Primary 2ND FLOOR POD A [address] Dx); [address] [place] [address] Colovesical fistula OFFICE BL [phone] [place] [address] Social History Tobacco Use Types [...] impairment: No 12/10/2016 as of this encounter Progress Notes * Darvin Swenson MD - 05/31/2017 2:45 PM CDT Formatting of this note may be different from the original. Urology Clinic Note Date of Service: 05/31/2017 Subjective: Reina Clarke is a 86 y.o. female who presents for evaluation of continued urinary incontinence. History of Present Illness 86 y.o. female with a history significant for HTN and colovaginal and vaginovesical fistulas s/p LAR and cystorrhaphy and repair of vesicovaginal fistula repair with peritoneal interposition flap and placement of bilateral ureteral stents on 11/13. Post operative course notable for OAB and urge-related incontinence. She also endorses stress urinary incontinence. In terms of her urgency symptoms, she has been tried on a number of anticholinergics, most recently -- according to the list of medications she provides in clinic -- she is on both Vesicare and Mirabegron. She estimates that she uses 6 pads per day (unclear if soaking). Mrs Clarke's urinary symptoms can be quite variable and appear to be strongly influenced by diuretics. For example, she highlights the fact she skipped her "pee pill" last night and has not voided since. She admits that she has not been timed/double voiding. While she denies any active irritative voiding complaints as of today's clinic visit, she does state that she was admitted for UTI/sepsis in . There are no cultures results immediately available from this encounter. Per her personal typed history, "Appt w/ Dr. Boris Richter, filled bladder with fluid, checking for leaks, Cystoscopy. Rx Trimethoprim 100 mg daily at bedtime, Vesicare 5 mg at bedtime, Vitamin C 500 mg daily, 2 cranberry tablets daily, Premarin estrogen cream vaginally. Go on cruise, return appt on June 25, 2017, to set date for sling surgery." Her residual in the past 34 mLs. Her repeat residual today was 9 mLs. Review of Systems Constitutional: Negative for activity change, appetite change, chills, diaphoresis, fatigue, fever and unexpected weight change. HENT: Negative for congestion, mouth sores and sinus pressure. Eyes: Negative for visual disturbance. Respiratory: Negative for apnea, cough, chest tightness and shortness of breath. Cardiovascular: Negative for chest pain, palpitations and leg swelling. Gastrointestinal: Negative for abdominal distention, abdominal pain, blood in stool, constipation, diarrhea, nausea, rectal pain and vomiting. Genitourinary: Positive for difficulty urinating, enuresis, frequency and urgency. Negative for decreased urine volume, dyspareunia, dysuria, flank pain, genital sores, hematuria, menstrual problem, pelvic pain, vaginal bleeding, vaginal discharge and vaginal pain. Musculoskeletal: Negative for arthralgias, back pain, gait problem and myalgias. Skin: Negative for rash and wound. Neurological: Negative for dizziness, tremors, seizures, syncope, weakness, light-headedness, numbness and headaches. Hematological: Negative for adenopathy. Does not bruise/bleed easily. Psychiatric/Behavioral: Negative for decreased concentration and dysphoric mood. The patient is not nervous/anxious. Past Medical History: Diagnosis Date Acid reflux Acquired hypothyroidism Arthritis Back pain Cataract Colon polyps Fibroids managed with total abdominal hysterectomy in 1973 Fracture of sacrum (HCC) multiple related to chronic prednisone use Hives 12/2014 related to stress Hypertension Incontinence Infection Macular degeneration Neuropathy Thyroid disorder Urinary tract infection Past Surgical History: Procedure Laterality Date THYROIDECTOMY 1951 OOPHORECTOMY Left 1955 concurrent appendectomy TOTAL ABDOMINAL HYSTERECTOMY 1974 HX CHOLECYSTECTOMY 06/16/2002 BREAST BIOPSY Right 12/04/2005 fibrocystic changes HX CATARACT REMOVAL 2007 SURGERY 12/27/2008 cystourethroscopy, supraopubic cystostomy, modified Parviz vesicourethropexy, anterior posterior colporrhaphies, enterocelectomy and bilateral sacral spinalis fixation SURGERY 11/28/2009 Transabdominal suspension vagina and enterocelectomy, enterotomy repair HX CARPAL TUNNEL RELEASE 2011 NE ESOPHAGOGASTRODUODENOSCOPY TRANSORAL DIAGNOSTIC N/A 10/22/2016 ESOPHAGOGASTRODUODENOSCOPY performed by Kelly Fall DO at ENDO/GI NE ESOPHAGOGASTRODUODENOSCOPY TRANSORAL DIAGNOSTIC N/A 10/27/2016 ESOPHAGOGASTRODUODENOSCOPY performed by Regulo Torrez MD at ENDO/GI NE COLONOSCOPY FLX DX W/COLLJ SPEC WHEN PFRMD N/A 10/27/2016 COLONOSCOPY performed by Regulo Torrez MD at ENDO/GI UPPER GASTROINTESTINAL ENDOSCOPY 10/27/2016 ESOPHAGOGASTRODUODENOSCOPY BIOPSY performed by Regulo Torrez MD at ENDO/GI NE COLECTOMY PARTIAL W/ANASTOMOSIS N/A 11/13/2016 RESECTION SIGMOID COLON, exploratory, laporotmy, low anterior resection, splinic flexor mobilization, creation of omental pedicle flap, flexible sigmoidoscopy performed by Tyler Pride MD at [facility] OR/Periop URETHRA SURGERY N/A 11/13/2016 REPAIR FISTULA VESICOVAGINAL, CYSTOSCOPY, BILATERAL URETERAL STENT PLACEMENT, performed by Darvin Swenson MD at [facility] OR[facility]Periop NE CYSTO W/SIMPLE REMOVAL STONE & STENT 01/05/2017 UPPER GASTROINTESTINAL ENDOSCOPY N/A 03/02/2017 ESOPHAGOGASTRODUODENOSCOPY performed by Jaime Bledsoe MD at ENDO/GI UPPER GASTROINTESTINAL ENDOSCOPY N/A 03/02/2017 ESOPHAGOGASTRODUODENOSCOPY BIOPSY performed by Jaime Bledsoe MD at ENDO/GI CYSTOURETHROSCOPY HX APPENDECTOMY concurrent left oophorectomy Social History Social History Marital status: Spouse name: N/A Number of children: N/A Years of education: N/A Occupational History Not on file. Social History Main Topics Smoking status: Former Smoker Packs/day: 1.00 Years: 45.00 Types: Cigarettes Quit date: 06/05/1998 Smokeless tobacco: Never Used Alcohol use 1.8 oz/week 1 Glasses of wine, 2 Standard drinks or equivalent per week Comment: 2 drinks a week Drug use: No Sexual activity: Not Currently Partners: Male Other Topics Concern Not on file Social History Narrative No narrative on file Family History Problem Relation Age of Onset Cancer Mother Diabetes Mother Hypertension Mother Heart Attack Father Cancer Sister Cancer Brother Kidney Cancer Brother Allergies Allergen Reactions Celecoxib HIVES Levofloxacin HIVES Peanut HIVES Penicillins HIVES Sulfa (Sulfonamide Antibiotics) HIVES Objective: baclofen (LIORESAL) 20 mg tablet Take 20 mg by mouth daily. CEPHALEXIN PO Take by mouth. Cholecalciferol (Vitamin D3) 5,000 unit tab Take 5,000 Units by mouth daily. Cranberry Extract (CRANBERRY CONCENTRATE) 500 mg cap Take by mouth. desloratadine(+) (CLARINEX) 5 mg tablet Take 5 mg by mouth daily. Docusate Sodium 250 mg cap Take 1 capsule by mouth daily. estrogen (PREMARIN) 25mg in NS 30mL nasal drops Apply 3 drops into nose as directed three times daily. Lacto.acidophilus-Bif.animalis 2 billion cell chew Chew 1 tablet by mouth at bedtime daily. levothyroxine (SYNTHROID) 50 mcg tablet Take 50 mcg by mouth at bedtime daily. MECOBALAMIN/L-MEFOLATE/B6 PHOS (METANX PO) Take by mouth. metoprolol XL (TOPROL XL) 25 mg extended release tablet Take 25 mg by mouth twice daily. mirabegron(+) ER (MYRBETRIQ) 50 mg tablet Take 1 tablet by mouth daily. Indications: BLADDER HYPERACTIVITY pantoprazole DR (PROTONIX) 40 mg tablet Take 1 tablet by mouth twice daily. raloxifene (EVISTA) 60 mg tablet Take 60 mg by mouth daily before breakfast. solifenacin(+) (VESICARE) 5 mg tablet Take 5 mg by mouth daily. spironolactone-hydrochlorothiazide (ALDACTAZIDE) 25-25 mg tablet Take 1 tablet by mouth every morning. sulindac (CLINORIL) 200 mg tablet Take 200 mg by mouth twice daily. Take with food. teriparatide(+) (FORTEO) 20 mcg/dose - 600 mcg/2.4 mL pnij injection pen Inject 20 mcg under the skin daily. trimethoprim (TRIMPEX) 100 mg tablet Take 100 mg by mouth at bedtime daily. VIT A/VIT C/VIT E/ZINC/COPPER (PRESERVISION AREDS PO) Take by mouth. Vitamin A-Vitamin C-Vit E-Min (PRESERVISION AREDS) cap Take 2 capsules by mouth daily. Vitals: 05/31/17 1327 BP: 103/64 Pulse: 87 Weight: 60 kg (132 lb 3.2 oz) Height: 161.3 cm (63.5") Body mass index is 23.05 kg/m. Physical Exam Constitutional: She is oriented to person, place, and time. She appears well- developed and well-nourished. No distress. HENT: Head: Normocephalic. Eyes: Conjunctivae are normal. Pupils are equal, round, and reactive to light. Neck: Normal range of motion. Neck supple. Cardiovascular: Normal rate. Pulmonary/Chest: Effort normal and breath sounds normal. No respiratory distress. She has no wheezes. Abdominal: Soft. Bowel sounds are normal. She exhibits no distension. There is no tenderness. Musculoskeletal: Normal range of motion. Neurological: She is alert and oriented to person, place, and time. Skin: Skin is warm and dry. No rash noted. No erythema. Psychiatric: She has a normal mood and affect. Her behavior is normal. Labs and Studies: PVR: 9 mLs U/A: Insufficient sample Assessment and Plan: Problem Colovesical Fistula -- 11/13/16: colovaginal and vaginovesical fistulas s/p [...] leave this to discretion of Dr. Richter. Colovesical fistula Mrs Clarke is 86F w/ [...] prescribe abx as indicated -- RTC PRN Patient seen and discussed with Dr. Swenson, who directed plan of care. Dinesh [id number] Orders Placed This Encounter URODYNAMIC STUDIES CULTURE-URINE W/SENSITIVITY ATTESTATION I personally performed the gagnon portions of the E/M visit, discussed case with resident and concur with resident documentation of history, physical exam, assessment, and treatment plan unless otherwise noted. 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 She continues to have significant incontinence on Mirabegron and Vesicare. She recently had cystoscopy by Dr. Richter and she is planning on proceeding with a sling placement in the near future. I have recommended urodynamic studies prior to a sling procedure. The patient will discuss with Dr. Richter, but she would like to have all her follow-up with Dr. Rcihter. She is happy to see me at any time if needed. Otherwise she will follow -up with me as needed. All questions answered. Staff name: Darvin Swenson MD Date: 06/13/2017 in this encounter Miscellaneous Notes * Assessment & [...] - Urine,Clean Catch MAIN LAB [address] [place] [address] in this encounter Visit Diagnoses Diagnosis Urinary incontinence, unspecified type - Primary Colovesical fistula Intestinovesical fistula
--- OUTSIDE RECORDS SUMMARY | 2017-06-30 06:33 | XMS REPORT | Encounter Summary ---
Author Author [facility] Organization [facility] Address Unknown Phone Unavailable Care Team Providers Care Grinder Operator Automatic Name Role Phone Boris Richter MD 21 Sathya Macdonald MD PCP Encounter Details Date Type Department Care Team Description 06/03/2017 Orders Only [facility] Darvin Swenson MD Gross hematuria (Primary Physicians - Urology [address]) [address]ND FLOOR POD A [address] [place] [address] OFFICE BLDG [phone] [place] [address] Social History Tobacco Use Types [...]
--- OUTSIDE RECORDS SUMMARY | 2017-06-30 06:33 | XMS REPORT | Clinical Summary ---
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 If you do not see the information that you expected, contact Release of Information in the Health Information Management department at [phone] for further assistance in locating additional records.[facility] Allergies Active Allergy Reactions Severity Noted Date [...] 20 mg by mouth Active tablet daily. 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 Cesar Howe Hydrodistention, suprapubic catheter, mariel bladder neck suspension, anterior posterior repair, vaginal apical repair, bilateral sacral spinalis fixation November 28, 2009-[place]-Dr. 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 Respiratory Rate 16 11/27/2016 12:43 PM CDT Oxygen Saturation 94% 03/02/2017 3:35 PM FOOD SERVICE MANAGER Inhaled Oxygen - - Concentration Weight 60 [...] INFLUENZA VACCINE 11/22/2017 Implants Implanted Type Area Search Planner Device Expiration Model / Identifier Date Serial / Lot Device Closure 70cm 6fr Angio-Seal Right: [facility] [employer] 07/22/2017 [id number] / Vip .035in Vascular - Sn/A Femoral N/A / Implanted: Qty: 1 on 10/22/2016 by Artery [id number] Anton Joseph MD Stent Ureteral 6fr 26cm Pigtail N/A: [employer] 09/16/2019 [id number] Curve Taper Tip Bladder Theodore - Ureter SCIENTIFIC 0 / [id number] UROLOGY [id number] Implanted: Qty: 1 on 11/13/2016 by Darvin Ahumada MD [id number] Stent Ureteral 6fr 26cm Pigtail N/A: [employer] 08/24/2019 [id number] Curve Taper Tip Bladder Theodore - Ureter SCIENTIFIC 0 / [id number] UROLOGY [id number] Implanted: Qty: 1 on 11/13/2016 by Darvin Ahumada MD [id number] Results * CULTURE-URINE W/SENSITIVITY (05/31/2017 3:48 PM) Component Value Ref Range Battery Name URINE CULTURE Specimen Description URINE, CLEAN CATCH Special Requests NONE Culture 3 OR MORE ORGANISMS PRESENT,INDICATING CONTAMINATION. PLEASE SUBMIT ANOTHER SPECIMEN. Report Status FINAL 06/02/2017 Specimen Performing Laboratory Urine - Urine,Clean Catch MAIN LAB [address] [place] [address] from Last 3 Months
--- OUTSIDE RECORDS SUMMARY | 2017-06-30 06:33 | XMS REPORT | Encounter Summary ---
Author Author [facility] Organization 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
--- OUTSIDE RECORDS SUMMARY | 2017-06-30 06:35 | XMS REPORT | Continuity of Care Document ---
Author Author [facility] Organization [facility] Address Unknown Phone Unavailable Allergies Active [...] PEANUTS PEANUTS Unknown N/A 08/22/2013 Yes celecoxib [id number] Drug Allergy Unknown N/A 04/08/2017 Yes oxybutynin [id number] Drug Allergy Unknown N/A 04/08/2017 Yes peanut [id number] Drug Allergy Unknown N/A 04/08/2017 Yes Penicillins [id number] Drug Allergy Unknown N/A 04/08/2017 Yes Sulfa (Sulfonamide Antibiotics) [id number] Drug Allergy Unknown N/A 2017 Medications Medication [...] Probiotic Formula oral capsule hydrocortisone topical 2016 DC hydrocortisone 2.5% topical cream aztreonam 12/02/2016 12/10/2016 [...] TOP betamethasone-clotrimazole topical 0.05%-1% cream belladonna-opium 12/20/2016 DC belladonna-opium 16.2 mg-30 mg rectal suppository Problems [...] PERSONAL HISTORY OF PEPTIC ULCER DISEASE 04/14/2017 TARAH KUMARI DO Ot Z87.448 PERSONAL HISTORY OF OTHER DISEASES OF UR 04/14/2017 XIOMY KUMARI DOI Ot Z87.891 PERSONAL HISTORY OF NICOTINE DEPENDENCE 04/14/2017 TARAH KUMARI DO Ot Z98.890 OTHER SPECIFIED POSTPROCEDURAL STATES 06/05/2017 ANIBAL ABRAHAM MD Ot E03.9 HYPOTHYROIDISM, UNSPECIFIED 06/05/2017 ANIBAL ABRAHAM MD Ot E86.0 DEHYDRATION 06/05/2017 ANIBAL ABRAHAM MD Ot E87.5 HYPERKALEMIA 06/05/2017 ANIBAL ABRAHAM MD Ot F17.210 NICOTINE DEPENDENCE, CIGARETTES, UNCOMPL 06/05/2017 ANIBAL ABRAHAM MD Ot I10 ESSENTIAL (PRIMARY) HYPERTENSION 06/05/2017 ANIBAL ABRAHAM MD Ot K21.9 GASTRO-ESOPHAGEAL REFLUX DISEASE WITHOUT 06/05/2017 ANIBAL ABRAHAM MD Ot Z79.899 OTHER INTERMEDIATE (CURRENT) DRUG THERAPY 06/05/2017 ANIBAL ABRAHAM MD Ot E03.9 HYPOTHYROIDISM, UNSPECIFIED 06/05/2017 ANIBAL ABRAHAM MD, Ot E86.0 DEHYDRATION 06/05/2017 ANIBAL ABRAHAM MD Ot E87.5 HYPERKALEMIA 06/05/2017 ANIBAL ABRAHAM MD Ot F17.210 NICOTINE DEPENDENCE, CIGARETTES, UNCOMPL 06/05/2017 ANIBAL ABRAHAM MD Ot I10 ESSENTIAL (PRIMARY) HYPERTENSION 06/05/2017 ANIBAL ABRAHAM MD, Ot K21.9 GASTRO-ESOPHAGEAL REFLUX DISEASE WITHOUT 06/05/2017 ANIBAL ABRAHAM MD, Ot Z79.899 OTHER INTERMEDIATE (CURRENT) DRUG THERAPY Procedures Code Description [place] [address] Intravenous infusion, for therapy, proph TATIANA BURGESS 12/02/2016 62657 Emergency department visit for the evalu TATIANA [...] NRG Blood erythrocyte morphology finding identification NORMAL NRG Blood reticulocytes count (number/volume) 80 10*9/L 24- 90 Blood reticulocytes/100 erythrocytes 1.66 % 0.50-2.40 [id number] - 07/21/16 09:33 Serum or plasma urea nitrogen measurement (mass/volume) 39 mg/dL 7-18 Serum or plasma creatinine measurement (mass/volume) 1.09 mg/dL 0.60-1.30 Serum or plasma urea nitrogen/creatinine mass ratio 36 NRG Serum or plasma creatinine measurement with calculation of estimated glomerular filtration rate 48 [facility] Comprehensive metabolic panel - 09/03/16 [...] or plasma urea nitrogen/creatinine mass ratio 27 NRG Serum or plasma creatinine measurement with [...] 0.1- 15.0 Pathology consultation and report FOOTNOTE NRG 24 hour urine protein fractions interpretation by electrophoresis [facility] [id number] NR Serum protein electrophoresis - 09/03/16 12:44 Serum or plasma protein measurement (mass/volume) 6.6 % 6.1-8.1 Pathology consultation and report SEE PATH REPORT NR Serum or plasma protein fractions interpretation by electrophoresis [facility] [id number] [facility] 25-hydroxyvitamin D measurement - 09/03/16 12:44 25-hydroxy vitamin D measurement 45 % 30-100 TYPE AND SCREEN CONVERTABLE TO XM - 12/02/16 19:21 ABO/Rh A POS NRG Antibody Screen NEG NRG Specimen Or Xm Expiration 12/05/2016 NRG CBCA - 12/02/16 19:38 WBC Count 9.1 X1000/cmm 4.0-10.5 RBC Count 2.87 [id number]/cmm 4.00-5.40 Hemoglobin 7.4 g/dL 12.0-16.0 Hematocrit 23.6 [...] NEG Ketones, UA TRACE mg/dL NEG Specific [place], UA 1.025 1.003-1.030 Blood, UA LARGE NEG [...] SENT FOR CULTURE NOCULT Specimen Description URINE NRG URINE CULTURE - 12/02/16 20:21 Specimen Description URINE NRG Special Requests NONE Reflexed from [id number] NRG [place] Count >100,000 CFU/ML NRG Culture JASE ALBICANS MANY NRG Report Status FINAL 12/05/2016 NRG Organism CANALB NRG Culture Status NRG METHOD LUCIANO - 12/02/16 20:21 AMPICILLIN >=32 RESISTANT NRG CIPROFLOXACIN >=8 RESISTANT NRG LEVOFLOXACIN >=8 RESISTANT NRG NITROFURANTOIN 128 RESISTANT NRG BENZYLPENICILLIN >=64 RESISTANT NRG TETRACYCLINE <=1 SUSCEPTIBLE NRG VANCOMYCIN <=0.5 SUSCEPTIBLE NRG BETA LACTAMASE NEGATIVE [facility] BASIC METABOLIC PANEL - 12/11/16 06:22 Sodium 137 mmol/L 135-145 Potassium 3.0 mmol/L 3.6-5.0 Chloride 97 mmol/L 101-111 Carbon Dioxide, Total 27 mmol/L 21-31 Glucose Level 110 mg/dL 70-100 BUN 14 mg/dL 6-20 Creatinine 0.9 mg/dL 0.5-1.2 Calcium 8.6 mg/dL 8.5-10.5 Calculated GFR 59.5 mL/min/1.73sq >60 Anion Gap 13 mmol/L [facility] BASIC METABOLIC PANEL - 12/13/16 05:42 Sodium 139 mmol/L 135-145 Potassium 3.5 mmol/L 3.6-5.0 Chloride 99 mmol/L 101-111 Carbon Dioxide, Total 27 mmol/L 21-31 Glucose Level 101 mg/dL 70-100 BUN 17 mg/dL 6-20 Creatinine 0.8 mg/dL 0.5-1.2 Calcium 8.5 mg/dL 8.5-10.5 Calculated GFR >60.0 mL/min/1.73sq >60 Anion Gap 13 mmol/L [facility] MAGNESIUM - 12/13/16 05:42 Magnesium 1.8 mg/dL 1.8-2.5 BASIC METABOLIC PANEL - 12/14/16 06:05 Sodium 138 mmol/L 135-145 Potassium 3.7 mmol/L 3.6-5.0 Chloride 100 mmol/L 101-111 Carbon Dioxide, Total 26 mmol/L 21-31 Glucose Level 114 mg/dL 70-100 BUN 19 mg/dL 6-20 Creatinine 0.9 mg/dL 0.5-1.2 Calcium 8.7 mg/dL 8.5-10.5 Calculated GFR 59.5 mL/min/1.73sq >60 Anion Gap 12 mmol/L [facility] CREATINE KINASE (CPK) - 12/14/16 06:05 Creatine Kinase 69 U/L 22-269 URINALYSIS, CULTURE IF INDICATED - 12/14/16 19:54 Color, UA LIGHT YELLOW YELL Clarity, Urine TURBID Clear Glucose, Urine NEGATIVE mg/dL NEG Bilirubin, UA NEGATIVE NEG Ketones, UA NEGATIVE mg/dL NEG Specific [place], UA >1.030 1.003-1.030 Blood, UA LARGE NEG [...] FOR CULTURE NOCULT Specimen Description URINE, CATHETERIZED NR URINE CULTURE - 12/14/16 19:54 Specimen Description URINE NR Special Requests NONE Reflexed from [id number] NRG [place] Count 50,000 CFU/ML NRG Culture JASE ALBICANS NRG Report Status FINAL 12/16/2016 NR Organism CANALB NRG Culture Status NR CREATINE KINASE (CPK) - [...] 52.7 mL/min/1.73sq >60 Anion Gap 12 mmol/L NR BASIC METABOLIC PANEL - 12/20/16 06:28 Sodium 131 mmol/L 135-145 Potassium 4.7 mmol/L 3.6-5.0 Chloride 95 mmol/L 101-111 Carbon Dioxide, Total 25 mmol/L 21-31 Glucose Level 114 mg/dL 70-100 BUN 31 mg/dL 6-20 Creatinine 1.2 mg/dL 0.5-1.2 Calcium 9.0 mg/dL 8.5-10.5 Calculated GFR 42.7 mL/min/1.73sq >60 Anion Gap 11 mmol/L NRG CREATINE KINASE (CPK) - 12/20/16 06:28 Creatine Kinase 617 U/L 22-269 BASIC METABOLIC PANEL - 12/22/16 11:13 Sodium 136 mmol/L 135-145 Potassium 4.6 mmol/L 3.6-5.0 Chloride 98 mmol/L 101-111 Carbon Dioxide, Total 22 mmol/L 21-31 Glucose Level 183 mg/dL 70-100 BUN 38 mg/dL 6-20 Creatinine 1.2 mg/dL 0.5-1.2 Calcium 9.3 mg/dL 8.5-10.5 Calculated GFR 42.7 mL/min/1.73sq >60 Anion Gap 16 mmol/L NRG CBCA - 12/22/16 11:14 WBC Count 11.4 X1000/cmm 4.0-10.5 RBC Count 3.94 [id number]/cmm 4.00-5.40 Hemoglobin 10.1 g/dL 12.0-16.0 Hematocrit 31.3 [...] Count 10.4 X1000/cmm 4.0-10.5 RBC Count 3.87 [id number]/cmm 4.00-5.40 Hemoglobin 9.8 g/dL 12.0-16.0 Hematocrit 31.2 [...] 04/10 06:40 NRG QUANTITY OF GROWTH . NRG Bacterial blood culture SEE COMMEN [facility] Bacterial susceptibility panel - 04/08/17 [...] susceptibility test by minimum inhibitory concentration - NRG Complete urinalysis with reflex to culture - [...] culture - 04/08/17 09:00 Bacterial urine culture [id number] NRG COLONY COUNT >100,000/ML NRG FTX;REPORTABLE SENSITIVITY [...] susceptibility test by minimum inhibitory concentration - [facility] Bacterial blood culture - 04/08/17 09:14 Bacterial blood culture NG NR Complete blood count (CBC) with automated white [...] RESULTS NEGATIVE FOR ANTIGEN AND TOXIN A/B [facility] Bacterial urine culture - 04/13/17 10:18 URINE CULTURE RESULTS <10,000/ML [facility] Complete blood count (CBC) with [...] blood basophil count (count/volume) 0.1 10*3/uL 0.0-0.1 Complete blood count (CBC) with automated white blood cell (WBC) differential - 06/04/17 13:28 Blood leukocytes automated count (number/volume) 9.6 10*3/uL 4.3-11.0 Blood erythrocytes automated count (number/volume) 4.50 10*6/uL 4.35-5.85 Venous blood hemoglobin measurement (mass/volume) 12.2 g/dL 11.5-16.0 Blood hematocrit (volume fraction) 37 % 35-52 Automated erythrocyte mean corpuscular volume 81 [foz_us] 80-99 Automated erythrocyte mean corpuscular hemoglobin (mass per erythrocyte) 27 pg 25-34 Automated erythrocyte mean corpuscular hemoglobin concentration measurement ( mass/volume) 33 g/dL 32-36 Automated erythrocyte distribution width ratio 21.1 % 10.0-14.5 Automated blood platelet count (count/volume) 237 10*3/uL 130-400 Automated blood platelet mean volume measurement 10.5 [foz_us] 7.4-10.4 Automated blood neutrophils/100 leukocytes 70 % 42-75 Automated blood lymphocytes/100 leukocytes 12 % 12-44 Blood monocytes/100 leukocytes 17 % 0-12 Automated blood eosinophils/100 leukocytes 1 % 0-10 Automated blood basophils/100 leukocytes 0 % 0-10 Blood neutrophils automated count (number/volume) 6.7 10*3 1.8-7.8 Blood lymphocytes automated count (number/volume) 1.2 10*3 1.0-4.0 Blood monocytes automated count (number/volume) 1.6 10*3 0.0-1.0 Automated eosinophil count 0.1 10*3/uL 0.0-0.3 Automated blood basophil count (count/volume) 0.0 10*3/uL 0.0-0.1 Comprehensive metabolic panel - 06/04/17 13:28 Serum or plasma sodium measurement (moles/volume) 132 mmol/L 135-145 Serum or plasma potassium measurement (moles/volume) 5.5 mmol/L 3.6-5.0 Serum or plasma chloride measurement (moles/volume) 102 mmol/L 98-107 Carbon dioxide 18 mmol/L 21-32 Serum or plasma anion gap determination (moles/volume) 12 mmol/L 5-14 Serum or plasma urea nitrogen measurement (mass/volume) 51 mg/dL 7-18 Serum or plasma creatinine measurement (mass/volume) 2.02 mg/dL 0.60-1.30 Serum or plasma urea nitrogen/creatinine mass ratio 25 NRG Serum or plasma creatinine measurement with calculation of estimated glomerular filtration rate 23 NRG Serum or plasma glucose measurement (mass/volume) 121 mg/dL 70-105 Serum or plasma calcium measurement (mass/volume) 8.9 mg/dL 8.5-10.1 Serum or plasma total bilirubin measurement (mass/volume) 0.9 mg/dL 0.1-1.0 Serum or plasma alkaline phosphatase measurement (enzymatic activity/volume) 182 U/L 40-136 Serum or plasma aspartate aminotransferase measurement (enzymatic activity/ volume) 30 U/L 5-34 Serum or plasma alanine aminotransferase measurement (enzymatic activity/volume ) 52 U/L 0-55 Serum or plasma protein measurement (mass/volume) 6.9 g/dL 6.4-8.2 Serum or plasma albumin measurement (mass/volume) 3.8 g/dL 3.2-4.5 Erythrocyte sedimentation rate by westergren method - 06/04/17 13:28 Erythrocyte sedimentation rate by westergren method 38 mm 0-30 Antistreptolysin o (ASO) titer - 06/04/17 13:28 Antistreptolysin o (ASO) titer 51 [iU]/mL 0-120 Blood lactic acid measurement (moles/volume) - 06/04/17 13:50 Blood lactic acid measurement (moles/volume) 1.19 mmol/L 0.50-2.00 Bacterial blood culture - 06/04/17 13:50 Bacterial blood culture NG NRG Bacterial blood culture - 06/04/17 14:11 Bacterial blood culture NG NRG Complete urinalysis with reflex to culture - 06/04/17 14:42 Urine color determination YELLOW NRG Urine clarity determination CLEAR NRG Urine pH measurement by test strip 6 5-9 Specific gravity of urine by test strip 1.010 1.016- 1.022 Urine protein assay by test strip, semi-quantitative NEGATIVE NEGATIVE Urine glucose detection by automated test strip NEGATIVE NEGATIVE Erythrocytes detection in urine sediment by light microscopy 1+ NEGATIVE Urine ketones detection by automated test strip NEGATIVE NEGATIVE Urine nitrite detection by test strip NEGATIVE NEGATIVE Urine total bilirubin detection by test strip NEGATIVE NEGATIVE Urine urobilinogen measurement by automated test strip (mass/volume) NORMAL NORMAL Urine leukocyte esterase detection by dipstick NEGATIVE NEGATIVE Automated urine sediment erythrocyte count by microscopy (number/high power field) [HPF] NRG Automated urine sediment leukocyte count by microscopy (number/high power field ) NONE NRG Bacteria detection in urine sediment by light microscopy NEGATIVE NRG Squamous epithelial cells detection in urine sediment by light microscopy 0-2 NRG Crystals detection in urine sediment by light microscopy NONE NRG Casts detection in urine sediment by light microscopy NONE NRG Mucus detection in urine sediment by light microscopy NEGATIVE NRG Complete urinalysis with reflex to culture NO NRG Complete blood count (CBC) with automated white blood cell (WBC) differential - 06/05/17 05:50 Blood leukocytes automated count (number/volume) 7.0 10*3/uL 4.3-11.0 Blood erythrocytes automated count (number/volume) 3.91 10*6/uL 4.35-5.85 Venous blood hemoglobin measurement (mass/volume) 10.5 g/dL 11.5-16.0 Blood hematocrit (volume fraction) 32 % 35-52 Automated erythrocyte mean corpuscular volume 82 [foz_us] 80-99 Automated erythrocyte mean corpuscular hemoglobin (mass per erythrocyte) 27 pg 25-34 Automated erythrocyte mean corpuscular hemoglobin concentration measurement ( mass/volume) 33 g/dL 32-36 Automated erythrocyte distribution width ratio 21.6 % 10.0-14.5 Automated blood platelet count (count/volume) 212 10*3/uL 130-400 Automated blood platelet mean volume measurement 10.7 [foz_us] 7.4-10.4 Automated blood neutrophils/100 leukocytes 66 % 42-75 Automated blood lymphocytes/100 leukocytes 14 % 12-44 Blood monocytes/100 leukocytes 15 % 0-12 Automated blood eosinophils/100 leukocytes 4 % 0-10 Automated blood basophils/100 leukocytes 0 % 0-10 Blood neutrophils automated count (number/volume) 4.6 10*3 1.8-7.8 Blood lymphocytes automated count (number/volume) 1.0 10*3 1.0-4.0 Blood monocytes automated count (number/volume) 1.1 10*3 0.0-1.0 Automated eosinophil count 0.3 10*3/uL 0.0-0.3 Automated blood basophil count (count/volume) 0.0 10*3/uL 0.0-0.1 Whole blood basic metabolic panel - 06/05/17 05:50 Serum or plasma sodium measurement (moles/volume) 136 mmol/L 135-145 Serum or plasma potassium measurement (moles/volume) 5.3 mmol/L 3.6-5.0 Serum or plasma chloride measurement (moles/volume) 110 mmol/L 98-107 Carbon dioxide 17 mmol/L 21-32 Serum or plasma anion gap determination (moles/volume) 9 mmol/L 5-14 Serum or plasma urea nitrogen measurement (mass/volume) 35 mg/dL 7-18 Serum or plasma creatinine measurement (mass/volume) 1.17 mg/dL 0.60-1.30 Serum or plasma urea nitrogen/creatinine mass ratio 30 NRG Serum or plasma creatinine measurement with calculation of estimated glomerular filtration rate 44 NRG Serum or plasma glucose measurement (mass/volume) 96 mg/dL 70-105 Serum or plasma calcium measurement (mass/volume) 8.2 mg/dL 8.5-10.1 Encounters ACCT No. Visit Date/Time Discharge Status Pt. Type Provider Facility Loc./Unit Complaint [id number] 06/24/2017 00:14:00 06/24/2017 23:59:59 CLS Preadmit LEDA RANGEL MD [facility] [place] [address] WELLNESS [id number] 05/28/2017 17:00:00 06/23/2017 00:01:00 DIS Outpatient LEDA RANGEL MD [facility] WE[facility] [id number] 06/04/2017 15:13:00 06/05/2017 13:35:00 DIS Inpatient ANIBAL ABRAHAM MD [facility] 4TH ARF. [id number] 04/08/2017 09:52:00 04/14/2017 10:45:00 DIS Inpatient TARAH KUMARI DO [facility] 4TH SEPSIS;UTI [id number] 09/03/2016 12:21:00 09/03/2016 23:59:59 CLS Outpatient JULIOCESAR GRACIA DO [facility] LAB M81.0 [id number] 07/21/2016 09:22:00 07/21/2016 23:59:59 CLS Outpatient GUSTABO WALTERS MD [facility] RAD RECURRENT UTI [id number] 07/21/2016 09:17:00 07/21/2016 23:59:59 CLS Outpatient LEDA RANGEL MD [facility] CARD BACK PAIN [id number] 06/18/2016 08:55:00 06/18/2016 23:59:59 CLS Outpatient NICHOLAS MEDINA APRN [facility] RAD M81.0 [id number] 06/11/2016 09:45:00 06/11/2016 23:59:59 CLS Outpatient LEDA RANGEL MD [facility] LAB ELEVATED WBS [id number] 05/18/2016 09:35:00 05/18/2016 23:59:59 CLS Outpatient NICHOLAS MEDINA APRN [facility] CARD CHEST HEAVINESS [id number] 07/31/2015 14:30:00 07/31/2015 15:49:00 DIS Outpatient STEVE WALL [facility] REHAB [id number] 01/31/2014 14:17:00 01/31/2014 23:59:59 CLS Outpatient LEDA RANGEL MD [facility] RAD [id number] 08/22/2013 11:36:00 08/22/2013 17:25:00 DIS Outpatient [id number] 08/17/2013 07:19:00 08/17/2013 23:59:59 CLS Outpatient [id number] 01/26/2013 09:20:00 01/26/2013 23:59:59 CLS Outpatient [id number] 01/22/2017 00:01:00 02/21/2017 23:59:00 DIS Outpatient V[facility] [id number] 12/22/2016 10:05:00 01/21/2017 23:59:00 DIS Outpatient Vidya [facility] [id number] 12/28/2016 11:51:00 01/07/2017 08:19:00 DIS Outpatient Sejal [facility] PTS PTS [id number] 12/10/2016 13:40:00 12/21/2016 06:35:00 DIS Inpatient [facility] UTI ANEMIA [id number] 12/02/2016 18:33:00 12/02/2016 23:13:00 DIS Emergency [facility] [id number] 12/22/2016 00:00:00 Document Registration 0000 10/09/2016 13:53:57 10/09/2016 23:59:59 CLS Outpatient [id number] 01/01/2017 13:03:00 01/01/2017 23:59:59 CLS Outpatient [facility] RIM [id number] 12/30/2016 14:46:00 12/30/2016 23:59:59 CLS Outpatient [facility] RIM [id number] 12/25/2016 14:46:00 12/25/2016 23:59:59 CLS Outpatient [facility] RIM [id number] 12/22/2016 09:46:00 12/22/2016 23:59:59 CLS Outpatient [facility] RIM [id number] 12/21/2016 17:15:00 12/21/2016 23:59:59 CLS Outpatient [facility] RIM [id number] 12/02/2016 16:16:00 12/02/2016 23:59:59 CLS Outpatient [facility] RIM
[2017-06-30 06:40] VITALS: BP 124/69
[2017-06-30] MEDS ORDERED: NS (IVPB) 100 ML ONE (07:03)
[2017-06-30] MEDS ORDERED: cefTRIAXone 1 GM (ROCEPHIN) VIAL ONE (07:03)
[2017-06-30] MEDS: LACTATED RINGERS 1,000 ML IV PRN ×2 (07:06→09:53)
--- NOTE | 2017-06-30 07:16 | Progress Note-Pre Operative ---
Pre-Operative Progress Note H&P Reviewed The H&P was reviewed, patient examined and no changes noted. Date Seen by Provider: June 30, 2017 Time Seen by Provider: 07:15 Date H&P Reviewed: June 30, 2017 Time H&P Reviewed: 07:15 Pre-Operative Diagnosis: SEVERE MIXED URINARY INCONTINENCE, ISD, AND OAB GUSTABO WALTERS MD June 30, 2017 7:16 am
--- NOTE | 2017-06-30 07:17 | Progress Note-Post Operative ---
Post-Operative Progess Note Surgeon (s)/Pewter Caster (s) Surgeon GUSTABO WALTERS MD Pewter Caster: N/A Pre-Operative Diagnosis SEVERE MIXED URINARY INCONTINENCE, ISD, AND OAB Post-Operative Diagnosis SAME Procedure & Operative Findings Date of Procedure 06/30/17 Procedure Performed/Findings PVS AND CYSTOSCOPY Anesthesia Type GENERAL Estimated Blood Loss Estimated blood loss (mL): 50cc Specimens/Packing Specimens Removed N/A Packing: KERLIX ESTRACE VAGINAL PACK GUSTABO WALTERS MD June 30, 2017 7:17 am
[2017-06-30] MEDS ORDERED: HYDROcodone/APAP 10 MG/325 MG (LORTAB) TAB PO PRN (07:30)
[2017-06-30] MEDS ORDERED: KETOROLAC 30 MG/ML VIAL IV PRN (07:30)
[2017-06-30] MEDS ORDERED: cefTRIAXone 1 GM/NS 100 ML IVPB IV ONE ×2 (08:00)
[2017-06-30] MEDS ORDERED: LIDOCAINE/EPI 1%-1:200,000 (XYLOCAINE) 10 ML VIAL ONE (08:36)
[2017-06-30] MEDS ORDERED: ESTRADIOL VAGINAL CREAM 42.5 GM (ESTRACE) VG ONE (08:36)
[2017-06-30] MEDS ORDERED: LIDOCAINE PF 2% 5 ML (XYLOCAINE) VIAL ONE (08:50)
[2017-06-30] MEDS ORDERED: fentaNYL INJECTION 100 MCG/2 ML AMP ONE (08:50)
[2017-06-30] MEDS ORDERED: proPOfol 200 MG/20 ML (DIPRIVAN) VIAL IV ONE (08:50)
[2017-06-30] MEDS ORDERED: ONDANSETRON 4 MG/2 ML (SDV) Z0FRAN ONE (08:50)
[2017-06-30] MEDS ORDERED: SEVOFLURANE (ULTANE) 15 ML INHAL SOLN ONE ×3 (08:53→09:51)
[2017-06-30] MEDS ORDERED: PHENYLEPHRINE 100 MCG/ML 10 ML (ANESTHESIA) SYR ONE (09:21)
[2017-06-30] MEDS ORDERED: ONDANSETRON 4 MG/2 ML (SDV) Z0FRAN IVP PRN (10:15)
[2017-06-30] MEDS ORDERED: MEPERIDINE (DEMEROL) INJ 50 MG/ML IVP PRN (10:15)
[2017-06-30] MEDS ORDERED: HYDROmorphone 2 MG/ML VIAL (DILAUDID) IVP PRN (10:15)
[2017-06-30] MEDS ORDERED: fentaNYL INJECTION 100 MCG/2 ML AMP IVP PRN (10:15)
--- NOTE | 2017-06-30 10:24 | Anesthesia-General Post-Op ---
General Patient Condition Mental Status/LOC: Same as Preop Cardiovascular: Satisfactory Nausea/Vomiting: Absent Respiratory: Satisfactory Pain: Controlled Complications: Absent Post Op Complications Complications None Follow Up Care/Instructions Patient Instructions None needed. Anesthesia/Patient Condition Patient Condition Patient is doing well, no complaints, stable vital signs, no apparent adverse anesthesia problems. No complications reported per nursing. ANNE VAIL CRNA June 30, 2017 10:24
[2017-06-30 11:05] VITALS: BP 115/69
[2017-06-30 12:50] VITALS: BP 114/64
[2017-06-30] MEDS: LACTATED RINGERS 1,000 ML IV SCH ×2 (14:00→21:47)
[2017-06-30 16:00] VITALS: BP 101/54
--- NOTE | 2017-06-30 18:56 | OPERATIVE REPORT ---
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 POSTOPERATIVE DIAGNOSIS: Severe mixed urinary incontinence with severe overactive bladder and severe ISD. OPERATION PERFORMED: Pubovaginal sling and cystoscopy. SURGEON: Boris Walters MD. ANESTHESIA: General. COMPLICATIONS: None. DESCRIPTION OF PROCEDURE: Under satisfactory general anesthesia, the patient in the extended lithotomy position, genitalia were prepped and draped in the usual sterile fashion. A Kovacs catheter was inserted and the anterior vaginal wall was infiltrated with 2% lidocaine and epinephrine. An incision was made in the anterior vaginal wall, was for a few centimeters was dissected off the underlying fascia. It was noted that the vaginal mucosa was thin and friable; however, I was able to do good dissection to the pubic arch on both sides and passed the Solyx device sling using the described technique. The sling was sitting nicely under the mid urethra with no tension twist and passage of the curved hemostat distally between it and the underlying tissue. I removed the Kovacs catheter and performed cystoscopy to confirm the integrity of the bladder, ureteral orifices and urethra was presence of the sling under the mid urethra. I left the bladder half full to perform the Valsalva maneuver manually. There was some leakage, so I tightened the sling further and there was no more leakage just a small seepage of urine. The hemostasis was satisfactory. The catheter was reinserted draining clear urine. Closure was performed in 1 layer and the mucosa was approximated with a Rapide 2-0 suture. A Kerlix with Estrace cream vaginal pack was applied. ESTIMATED BLOOD LOSS: 50 mL. Needle, sponge and instrument count correct x2. The patient tolerated the procedure and anesthesia well and was sent to recovery room in stable condition. Job ID: [id number] DocumentID: [id number] Dictated Date: 06/30/2017 10:06:52 Mmi Teacher Date: 06/30/2017 18:55:28 Dictated By: BORIS WALTERS MD
[2017-06-30] MEDS ORDERED: ACETAMINOPHEN 500 MG TAB (TYLENOL) ONE (20:10)
[2017-06-30] MEDS ORDERED: ACETAMINOPHEN 500 MG TAB (TYLENOL) PO PRN (20:15)
[2017-06-30 20:20] VITALS: BP 105/62
[2017-07-01 00:35] VITALS: BP 103/54
[2017-07-01 05:05] VITALS: BP 110/55
[2017-07-01] MEDS ORDERED: LEVOFLOXACIN 250 MG/50 ML IVPB 50 ML IV SCH (07:17)
[2017-07-01 08:00] VITALS: BP 104/62
--- NOTE | 2017-07-01 10:29 | Progress Note-Urology ---
Progress Note-Urology Progress Notes/Assess & Plan Progress/Assessment & Plan CAICEDO STILL IN. WE WILL DC. Final Diagnosis SEVERE INCONTINENCE, OAB, ISD GUSTABO WALTERS MD July 01, 2017 10:29 am
[2017-07-01] MEDS ORDERED: LEVOFLOXACIN 500 MG/100 ML ONE (10:36)
[2017-07-01 12:00] VITALS: BP 108/60
[2017-07-01 16:00] VITALS: BP 112/68
[2017-07-01 19:45] VITALS: BP 114/66
[2017-07-02 00:30] VITALS: BP 118/62
[2017-07-02 04:57] VITALS: BP 104/52
--- NOTE | 2017-07-02 09:21 | Progress Note-Urology ---
Progress Note-Urology Progress Notes/Assess & Plan Progress/Assessment & Plan VOIDING WELL. NO CRISTINA. SOME URGENCY INCONTINENCE VS UNINHIBITED CONTRACTIONS. PVR 21CC. DISCHARGE WITH INSTRUCTIONS AND PLAN Final Diagnosis SEVER MIXED INCONTINENCE WITH OAB AND ISD GUSTABO WALTERS MD July 02, 2017 09:21
--- NOTE | 2017-07-02 09:27 | Discharge Inst-Urology ---
Discharge Inst-Urology Discharge Medications New, Converted, or Re-newed RX: RX on Chart Patient Instructions/Follow Up Plan Please make appointment to been seen in office in 2 weeks, rest till then and no driving Showers, no bath Keep bowels soft and moving [facility] to visit 3 times a week to check vital signs, bleeding, bladder scan PVR, and do UA?UC IF NEEDED Resume Proloprim once done with Cipro Increase oral fluids for 48 hours and then as needed. Diet and Activity as tolerated. If questions or concerns contact your physician Or seek help at emergency department. GUSTABO WALTERS MD July 02, 2017 09:27
[2017-07-02 10:50] VITALS: BP 104/65
== END 2017-07-02 12:00 | disposition home health service (06) ==
LOC: SDC 06:28 → EDSTATUS 08:45 → WS 11:00 → SDC 07-02 12:00
PROVIDERS: ATTEND Urology
DX: N39.46 Mixed incontinence (principal); N36.42 Intrinsic sphincter deficiency (ISD); N32.81 Overactive bladder; I10 Essential (primary) hypertension; Z87.891 Personal history of nicotine dependence; Z79.899 Other long term (current) drug therapy; Z88.0 Allergy status to penicillin; Z88.2 Allergy status to sulfonamides
CPT/HCPCS: 94640

== ENCOUNTER 2017-08-08 18:07 | Emergency (ER) | payer MEDICARE, BC ==
[~2017-08-08] VITALS: Ht 154.9 cm; Wt 59.0 kg
[2017-08-08 18:24] VITALS: BP 117/74
[2017-08-08] MEDS ORDERED: NS IV 1000 ML 1,000 ML IV SCH ×2 (18:28→19:57)
--- OUTSIDE RECORDS SUMMARY | 2017-08-08 18:34 | XMS REPORT | Encounter Summary ---
Author Author [facility] Organization [facility] Address Unknown Phone Unavailable Care Team Providers Care Rat Breeder Name Role Phone Boris Richter MD 21 Sathya Macdonald MD PCP Reason for Visit * Reason Comments Results Encounter Details Date Type Department Care Team Description 06/03/2017 Telephone [facility] Darvin Swenson MD Results Physicians - Urology [address] [facility] 2ND FLOOR POD A [address] [facility] [place] [address] OFFICE BLDG [phone] [place] [address] Social History Tobacco Use Types [...]
--- OUTSIDE RECORDS SUMMARY | 2017-08-08 18:34 | XMS REPORT | Clinical Summary ---
Author Author [facility] Organization [facility] Address Unknown Phone Unavailable Care Team Providers Care Network Security Administrator Name Role Phone Boris Richter MD 21 Sathya Macdonald MD PCP Source Comments Some departments are not documenting in the electronic medical record. 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 Cesar Howe Hydrodistention, suprapubic catheter, mariel bladder neck suspension, anterior posterior repair, vaginal apical repair, bilateral sacral spinalis fixation November 28, 2009-[place]-Dr. 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 Respiratory Rate 16 11/27/2016 12:43 PM CDT Oxygen Saturation 94% 03/02/2017 3:35 PM ROTARY SOIL STABILIZER OPERATOR Inhaled Oxygen - - Concentration Weight 60 kg (132 lb 3.2 oz) 05/31/2017 1:27 PM CDT Height 161.3 cm (5' 3.5") 05/31/2017 1:27 PM CDT Body Mass Index 23.05 05/31/2017 1:27 PM CDT Plan of Treatment Health Maintenance Due Date Last Done Comments PHYSICAL (COMPREHENSIVE) 09/23/1938 EXAM PERTUSSIS VACCINE 09/23/1942 TETANUS VACCINE 09/23/1948 SHINGLES VACCINE 1991 OSTEOPOROSIS SCREENING 09/23/1996 PNEUMONIA (PCV13/PPSV23) 09/23/1996 VACCINES (1 of 2 - PCV13) INFLUENZA VACCINE 11/22/2017 Implants Implanted Type Area Creeler Device Expiration Model / Identifier Date Serial / Lot Device Closure 70cm 6fr Angio-Seal Right: [employer] 07/22/2017 [id number] / Vip .035in Vascular - Sn/A Femoral N/A / Implanted: Qty: 1 on 10/22/2016 by Artery [id number] Anton Joseph MD Stent Ureteral 6fr 26cm Pigtail N/A: [employer] 09/16/2019 [id number] Curve Taper Tip Bladder Theodore - Ureter SCIENTIFIC 0 / [id number] UROLOGY [id number] Implanted: Qty: 1 on 11/13/2016 by Lara / Darvin Swenson MD [id number] Stent Ureteral 6fr 26cm Pigtail N/A: [employer] 08/24/2019 [id number] Curve Taper Tip Bladder Theodore - Ureter SCIENTIFIC 0 / [id number] UROLOGY [id number] Implanted: Qty: 1 on 11/13/2016 by Darvin Ahumada MD [id number] Results * CULTURE-URINE W/SENSITIVITY (05/31/2017 3:48 PM) Component Value Ref Range Battery Name URINE CULTURE Specimen Description URINE, CLEAN CATCH Special Requests NONE Culture 3 OR MORE ORGANISMS PRESENT,INDICATING CONTAMINATION. PLEASE SUBMIT ANOTHER SPECIMEN. Report Status FINAL 06/02/2017 Specimen Performing Laboratory Urine - Urine,Clean Catch MAIN LAB [address] [place] [address] from Last 3 Months
--- OUTSIDE RECORDS SUMMARY | 2017-08-08 18:34 | XMS REPORT | Encounter Summary ---
Author Author [facility] Organization [facility] Address Unknown Phone Unavailable Care Team Providers Care Respiratory Tech Name Role Phone Boris Richter MD 21 Sathya Macdonald MD PCP Encounter Details Date Type Department Care Team Description 05/31/2017 [facility] Darvin Swenson MD Unspecified urinary Encounter [address] [place] [address] [address] [place] [address] [phone] Social History Tobacco Use Types Packs/Day Years [...] - Urine,Clean Catch [facility] MAIN [facility] [address] [place] [address] in this encounter Visit Diagnoses Diagnosis Urinary incontinence, unspecified type Admitting Diagnoses Diagnosis Unspecified urinary incontinence
--- OUTSIDE RECORDS SUMMARY | 2017-08-08 18:34 | XMS REPORT | Encounter Summary ---
Author Author [facility] Organization [facility] Address Unknown Phone Unavailable Care Team Providers Care Medical Accounting Clerk Name Role Phone Boris Richter MD 21 Sathya Macdonald MD PCP Reason for Visit * Reason Comments Urinary Incontinence Encounter Details Date Type Department Care Team Description 05/31/2017 Office Visit [facility] Darvin Swenson MD Urinary incontinence, Physicians - Urology [address] unspecified type (Primary 2ND FLOOR POD A MS 3016 Dx); [address] [place] [address] Colovesical fistula OFFICE BL [phone] [place] [address] Social History Tobacco Use [...] enterotomy repair HX CARPAL TUNNEL RELEASE 2011 CA ESOPHAGOGASTRODUODENOSCOPY TRANSORAL DIAGNOSTIC N/A 10/22/2016 ESOPHAGOGASTRODUODENOSCOPY performed by Kelly Fall DO at ENDO/GI CA ESOPHAGOGASTRODUODENOSCOPY TRANSORAL DIAGNOSTIC N/A 10/27/2016 ESOPHAGOGASTRODUODENOSCOPY performed by Regulo Torrez MD at ENDO/GI CA COLONOSCOPY FLX DX W/COLLJ SPEC WHEN PFRMD N/A 10/27/2016 COLONOSCOPY performed by Regulo Torrez MD at ENDO/GI UPPER GASTROINTESTINAL ENDOSCOPY 10/27/2016 ESOPHAGOGASTRODUODENOSCOPY BIOPSY performed by Regulo Torrez MD at ENDO/GI CA COLECTOMY PARTIAL W/ANASTOMOSIS N/A 11/13/2016 RESECTION SIGMOID COLON, exploratory, laporotmy, low anterior resection, splinic flexor mobilization, creation of omental pedicle flap, flexible sigmoidoscopy performed by Tyler Pride MD at Main OR/Periop URETHRA SURGERY N/A 11/13/2016 REPAIR FISTULA VESICOVAGINAL, CYSTOSCOPY, BILATERAL URETERAL STENT PLACEMENT, performed by Darvin Swenson MD at Main OR/Periop CA CYSTO W/SIMPLE REMOVAL STONE & STENT 01/05/2017 [...] to have all her follow-up with Dr. Richter. She is happy to see me at [...] Urine - Urine,Clean Catch MAIN LAB [address] [place] [address] in this encounter Visit Diagnoses Diagnosis Urinary incontinence, unspecified type - Primary Colovesical fistula Intestinovesical fistula
--- OUTSIDE RECORDS SUMMARY | 2017-08-08 18:34 | XMS REPORT | Encounter Summary ---
Author Author [facility] Organization [facility] Address Unknown Phone Unavailable Care Team Providers Care Farm Rancher Name Role Phone Boris Richter MD 21 Sathya Macdonald MD PCP Encounter Details Date Type Department Care Team Description 06/03/2017 Orders Only [facility] Darvin Swenson MD Gross hematuria (Primary Physicians - Urology [address] [facility] vd Dx) 2ND FLOOR POD A MS [address] [facility] [place] [address] OFFICE BLDG [phone] [place] [address] Social History Tobacco Use [...]
--- NOTE | 2017-08-08 18:36 | ED GU-Female ---
General Chief Complaint: Fever-Adult/Adol Stated Complaint: FEVER Source: patient, other Exam Limitations: no limitations History of Present Illness Date Seen by Provider: Aug 08, 2017 Time Seen by Provider: 18:20 Initial Comments The patient resents to the ER by private conveyance with her significant other and a chief complaint that she feels like she is getting dehydrated and has a urinary tract infection coming on and is not able to urinate. She says earlier today she was out around town and as she was leaving to come home she felt awfully warms when she checked her temperature at home she had 101+ fever orally. She knows that in the past she's had a lot of problems with urinary tract infections with her latest bout in May she had to be hospitalized for fluids and antibiotics. She also has been seen by Dr. Perez and had a pessary placed back in June. She feels like a pessary has been working and helped her with her incontinence tremendously although she still has urinary incontinence and wears incontinence pads. Says she's not been out of urinate this afternoon since. She's been drinking a lot of Gatorade at home because that is what her urologist recommended. She has not taken anything for the fever and she is not having any chills, nausea or pain. 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 Allergies and Home Medications Allergies Coded Allergies: Penicillins (Verified Allergy, Unknown, 04/08/17) Sulfa (Sulfonamide Antibiotics) (Verified Allergy, Unknown, 04/08/17) celecoxib (Verified Allergy, Unknown, 04/08/17) levofloxacin (Unverified Allergy, Unknown, "HIVES", 06/30/17) oxybutynin (Verified Allergy, Unknown, 04/08/17) peanut (Verified Allergy, Unknown, 04/08/17) Home Medications Ascorbate Calcium 500 Mg Tablet, 500 MG PO 1800, (Reported) Baclofen 20 Mg Tablet, 20 MG PO 1800, (Reported) Cholecalciferol (Vitamin D3) 5,000 Unit Tablet, 5,000 UNIT PO 1800, (Reported) Cranberry Fruit 450 Mg Tablet, 450 MG PO BID, (Reported) Desloratadine 5 Mg Tablet, 10 MG PO DAILY, (Reported) Docusate Sodium 250 Mg Capsule, 250 MG PO DAILY PRN for CONSTIPATION-1ST LINE, ( Reported) Estrogens Conjugated 30 Gm Cr, 0.5 GM VG MoWeFr, (Reported) Lactobacillus Acidophilus 1 Each Capsule, 1 CAP PO 1800, (Reported) Levomefolate/B6/B12/Algal Oil 1 Each Capsule, 1 CAP PO BID, (Reported) Levothyroxine Sodium 50 Mcg Tablet, 50 MCG PO HS, (Reported) Metoprolol Succinate 25 Mg Tab.er.24h, 25 MG PO BID, (Reported) Mirabegron 50 Mg Tab.er.24h, 50 MG PO DAILY, (Reported) Pantoprazole Sodium 40 Mg Tablet.dr, 40 MG PO DAILY, (Reported) Raloxifene HCl 60 Mg Tablet, 60 MG PO DAILY, (Reported) Spironolact/Hydrochlorothiazid 1 Each Tablet, 1 TAB PO DAILY, (Reported) Sulindac 200 Mg Tablet, 200 MG PO BID WITH MEALS, (Reported) Teriparatide 600 Mcg/2.4 Ml Syr, 20 MCG SC DAILY, (Reported) Vit C/E/Zn/Coppr/Lutein/Zeaxan 1 Each Capsule, 1 CAP PO BID, (Reported) Patient Home Medication List Home Medication List Reviewed: Yes Review of Systems Constitutional: chills; No diaphoresis, No dizziness; fever, malaise; No weakness EENTM: No ear discharge, No ear pain Respiratory: No cough, No short of breath Cardiovascular: No chest pain, No edema, No palpitations Gastrointestinal: No abdominal pain, No constipation, No diarrhea, No nausea Genitourinary: denies burning, denies discharge, denies dysuria, denies frequency, denies hematuria; incontinence Musculoskeletal: back pain (chronic); No joint pain Skin: No pruritus, No rash Psychiatric/Neurological: Denies Headache, Denies Numbness, Denies Paresthesia Past Huwg[place]m-Rfgwhm-Adbuwb Hx Patient Social History Alcohol Use: Denies Use Recreational Drug Use: No Smoking Status: Former Smoker Type Used: Cigarettes Former Smoker, Quit: May 30, 1998 Recent Foreign Travel: No Contact w/Someone Who Travel: No Recent Hopitalizations: Yes Immunizations Up To Date Tetanus Booster (TDap): Unknown Date of Pneumonia Vaccine: Sep 03, 2016 Date of Influenza Vaccine: Dec 23, 2016 Seasonal Allergies Seasonal Allergies: Yes Past Medical History Surgeries: Yes (breast bx, bilat cataracts, transabdominal suspension of vagina , enterocele) Abdominal, Bladder Surgery, Eye Surgery, Gallbladder, Hysterectomy, Orthopedic, Thyroidectomy Respiratory: No Cardiac: Yes Hypertension Neurological: No Reproductive Disorders: No ENGAGEMENT MANAGER History: Menopausal Genitourinary: Yes (colovesicular fistula) Bladder Infection, Renal Failure Gastrointestinal: Yes Gastroesophageal Reflux, Diverticulosis, Ulcer Musculoskeletal: Yes Arthritis, Fractures Endocrine: Yes (THYROIDECTOMY) Hypothyroidsim HEENT: Yes Cataract, Macular Degeneration Cancer: No Psychosocial: No Integumentary: No Blood Disorders: Yes Adverse Reaction/Blood Tranf: No Family Medical History Cardiovascular disease 19 FATHER Colon cancer 19 MOTHER G8 BROTHER Diabetes mellitus 19 MOTHER FH: breast cancer 19 MOTHER Hypertension 19 FATHER 19 MOTHER G8 SISTER Myocardial infarction 19 FATHER G8 SISTER Thyroid disease G8 SISTER No Pertinent Family Hx Physical Exam Vital Signs Vital Signs - First Documented 08/08/17 08/08/17 18:24 20:48 Temp 99.9 Pulse 86 Resp 16 B/P (MAP) 117/74 (88) Pulse Ox 95 O2 Delivery Room Air O2 Flow Rate 4.00 Capillary Refill : General Appearance: WD/WN, no apparent distress HEENT: PERRL/EOMI, normal ENT inspection, TMs normal, pharynx normal (. Oropharynx is dry) Neck: non-tender, supple, normal inspection Cardiovascular: normal peripheral pulses, regular rate, rhythm Respiratory: chest non-tender, lungs clear, normal breath sounds, no respiratory distress, no accessory muscle use Gastrointestinal: normal bowel sounds, non tender, soft, no organomegaly, other (negative for mesenteric signs) Back: normal inspection, no CVA tenderness Extremities: normal capillary refill Neurologic/Psychiatric: alert, normal mood/affect, oriented x 3 Skin: normal color, warm/dry Progress/Results/Core Measures Suspected Sepsis SIRS Temperature:99.9 Pulse: 86 Respiratory Rate: 16 Laboratory Tests 08/08/17 18:49: White Blood Count 12.5H Blood Pressure 117 /74 Mean: 88 Laboratory Tests 08/08/17 18:49: Creatinine 1.49H, Platelet Count 221, Total Bilirubin 0.9 Results/Orders Lab Results Laboratory Tests Test 08/08/17 18:49 08/08/17 19:59 Range/Units White Blood Count 12.5 H 4.3-11.0 10^3/uL Red Blood Count 4.48 4.35-5.85 10^6/uL Hemoglobin 13.0 11.5-16.0 G/DL Hematocrit 39 35-52 % Mean Corpuscular Volume 87 80-99 FL Mean Corpuscular Hemoglobin 29 25-34 PG Mean Corpuscular Hemoglobin Concent 33 32-36 G/DL Red Cell Distribution Width 15.8 H 10.0-14.5 % Platelet Count 221 130-400 10^3/uL Mean Platelet Volume 11.2 H 7.4-10.4 FL Neutrophils (%) (Auto) 83 H 42-75 % Lymphocytes (%) (Auto) 5 L 12-44 % Monocytes (%) (Auto) 12 0-12 % Eosinophils (%) (Auto) 1 0-10 % Basophils (%) (Auto) 0 0-10 % Neutrophils # (Auto) 10.3 H 1.8-7.8 X 10^3 Lymphocytes # (Auto) 0.6 L 1.0-4.0 X 10^3 Monocytes # (Auto) 1.5 H 0.0-1.0 X 10^3 Eosinophils # (Auto) 0.1 0.0-0.3 10^3/uL Basophils # (Auto) 0.0 0.0-0.1 10^3/uL Neutrophils % (Manual) 80 % Lymphocytes % (Manual) 10 % Monocytes % (Manual) 10 % Eosinophils % (Manual) 0 % Basophils % (Manual) 0 % Band Neutrophils 0 % Clumped Platelets Blood Morphology Comment NORMAL Sodium Level 134 L 135-145 MMOL/L Potassium Level 5.9 H 3.6-5.0 MMOL/L Chloride Level 104 98-107 MMOL/L Carbon Dioxide Level 19 L 21-32 MMOL/L Anion Gap 11 5-14 MMOL/L Blood Urea Nitrogen 26 H 7-18 MG/DL Creatinine 1.49 H 0.60-1.30 MG/DL Estimat Glomerular Filtration Rate 33 BUN/Creatinine Ratio 17 Glucose Level 121 H 70-105 MG/DL Calcium Level 9.6 8.5-10.1 MG/DL Total Bilirubin 0.9 0.1-1.0 MG/DL Aspartate Amino Transf (AST/SGOT) 52 H 5-34 U/L Alanine Aminotransferase (ALT/SGPT) 36 0-55 U/L Alkaline Phosphatase 165 H 40-136 U/L Total Protein 7.3 6.4-8.2 GM/DL Albumin 4.1 3.2-4.5 GM/DL Urine Color YELLOW Urine Clarity CLEAR Urine pH 5 5-9 Urine Specific [place] 1.010 L 1.016-1.022 Urine Protein 2+ H NEGATIVE Urine Glucose (UA) NEGATIVE NEGATIVE Urine Ketones NEGATIVE NEGATIVE Urine Nitrite NEGATIVE NEGATIVE Urine Bilirubin NEGATIVE NEGATIVE Urine Urobilinogen NORMAL NORMAL MG/DL Urine Leukocyte Esterase NEGATIVE NEGATIVE Urine RBC (Auto) NEGATIVE NEGATIVE Urine RBC NONE /HPF Urine WBC RARE /HPF Urine Squamous Epithelial Cells 2-5 /HPF Urine Crystals NONE /LPF Urine Bacteria NEGATIVE /HPF Urine Casts NONE /LPF Urine Mucus NEGATIVE /LPF Urine Culture Indicated NO My Orders Orders - MIGUEL BHATTI Cbc With Automated Diff (08/08/17 18:28) Comprehensive Metabolic Panel (08/08/17 18:28) Ua Culture If Indicated (08/08/17 18:28) Saline Lock/Iv-Start (08/08/17 18:28) Ns Iv 1000 Ml (Sodium Chloride 0.9%) (08/08/17 18:28) Manual Differential (08/08/17 18:49) Ns Iv 1000 Ml (Sodium Chloride 0.9%) (08/08/17 19:57) Vital Signs/I&O 08/08/17 08/08/17 08/08/17 18:24 19:22 20:48 Temp 99.9 99.9 Pulse 86 67 Resp 16 14 B/P (MAP) 117/74 (88) 117/74 (88) Pulse Ox 95 98 O2 Delivery Room Air Room Air Nasal Cannula O2 Flow Rate 4.00 Capillary Refill : Blood Pressure Mean: 88 Progress Note #1: Time: 18:36 Progress Note She was not able to produce a urine yet. Her some oral and IV rehydration as well as obtain some labs looking for dehydration, urinary tract infection etc. She seems to describe more dehydration with fever than urinary retention so we' ll give her another chance to try and urinate before we bladder scan her since she doesn't have a palpable suprapubic bladder and she is not having any tenderness in that region either. She's not crossing the threshold for Sears/ sepsis at this time with just a fever. She is only 99.9 in the ER with no antipyretic intervention given so it is also possible that she is overheated secondary to exposure. Progress Note #2: Time: 21:07 Progress Note The patient's feeling much better and she's been to the bathroom several times. She is confident she can go home and would like her to follow up with her primary care doctor later this week history check some labs since he was getting borderline on a white count and borderline on a elevated creatinine above her baseline of 1.1 on average. I think with the 2 L of fluid we've given her it's reasonable that she should do well on oral rehydration since she's been drinking water in the room since she's been here. With her fever and modest elevation and leukocytes are may shank turner to be something else going on but I can't clinically put my finger on any definite infection so a virus is the most likely answer. Departure Impression Primary Impression: Urinary incontinence Qualified Codes: R32 - Unspecified urinary incontinence Additional Impression: Fever Qualified Codes: R50.9 - Fever, unspecified Disposition: 01 HOME, SELF-CARE Condition: Improved Departure-Patient Inst. Decision time for Depature: 21:09 Referrals: JULIOCESAR GRACIA DO (PCP/Family) Primary Care Physician Patient Instructions: Dehydration, Adult (DC) Add. Discharge Instructions: Please call Dr. Gracia's clinic tomorrow and request an appointment this week to have some labs rechecked just to make sure things are going the correct direction. Continue to drink plenty of fluids. You can use Tylenol 1000 mg every 8 hours as needed for misery. If you have new or worsening symptoms such as chest pain, shortness of breath or intractable nausea with vomiting you should return to the ER otherwise plan to keep your appointment with your doctor. All discharge instructions reviewed with patient and/or family. Voiced understanding. Copy Copies To 1: JULIOCESAR GRACIA TITUS J Aug 08, 2017 18:36
--- OUTSIDE RECORDS SUMMARY | 2017-08-08 18:36 | XMS REPORT | Continuity of Care Document ---
Author Author [facility] Organization [facility] Address Unknown Phone Unavailable Allergies Active [...] PEANUTS PEANUTS Unknown N/A 08/22/2013 Yes celecoxib [id number] Drug Allergy Unknown N/A 04/08/2017 Yes oxybutynin [id number] Drug Allergy Unknown N/A 04/08/2017 Yes peanut [id number] Drug Allergy Unknown N/A 04/08/2017 Yes Penicillins [id number] Drug Allergy Unknown N/A 04/08/2017 Yes Sulfa (Sulfonamide Antibiotics) [id number] Drug Allergy Unknown N/A 2017 Yes levofloxacin [id number] Drug Allergy Unknown "HIVES" 06/30/2017 Medications Medication Packaging Start Date Stop Date [...] Probiotic Formula oral capsule hydrocortisone topical 2016 DE hydrocortisone 2.5% topical cream aztreonam 12/02/2016 12/10/2016 [...] TOP betamethasone-clotrimazole topical 0.05%-1% cream belladonna-opium 12/20/2016 DE belladonna-opium 16.2 mg-30 mg rectal suppository Problems Date Dx Coded Attending Type Code Diagnosis Diagnosed By 01/22/1548 STEVE WALL Ot M54.9 DORSALGIA, UNSPECIFIED 02/21/2014 LEDA RANGEL MD Ot V76.12 07/15/2015 STEVE WALL Ot M54.9 DORSALGIA, UNSPECIFIED 07/31/2015 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 M54.9 DORSALGIA, UNSPECIFIED 05/19/2016 NICHOLAS MEDINA [...] APRN Ot R07.89 OTHER CHEST PAIN 08/21/2016 SELENA PEOPLES, GUSTABO Solares Ot N39.0 URINARY [...] treatment not carried out, unspecified reason 04/14/2017 QUOC ROMANO TARAH Ot A41.59 OTHER GRAM-NEGATIVE SEPSIS 04/14/2017 QUOC ROMANO TARAH Ot B00.1 HERPESVIRAL VESICULAR DERMATITIS 04/14/2017 QUOC ROMANO TARAH Ot B96.20 UNSP ESCHERICHIA COLI THE CAUSE OF DI 04/14/2017 QUOC ROMANO TARAH Ot D63.8 ANEMIA IN OTHER CHRONIC DISEASES [...] PERSONAL HISTORY OF PEPTIC ULCER DISEASE 04/14/2017 QUOC ROMANO TARAH Ot Z87.448 PERSONAL HISTORY OF OTHER DISEASES OF UR 04/14/2017 QUOC ROMANO TARAH Ot Z87.891 PERSONAL HISTORY OF NICOTINE DEPENDENCE 04/14/2017 QUOC ROMANO TARAH Ot Z98.890 OTHER SPECIFIED POSTPROCEDURAL STATES 06/05/2017 JARAD PEOPLES, ANIBAL Perales Ot E03.9 HYPOTHYROIDISM, UNSPECIFIED 06/05/2017 ANIBAL ABRAHAM MD Ot E86.0 DEHYDRATION 06/05/2017 ANIBAL ABRAHAM MD Ot E87.5 HYPERKALEMIA 06/05/2017 ANIBAL ABRAHAM MD Ot F17.210 NICOTINE DEPENDENCE, CIGARETTES, UNCOMPL 06/05/2017 ANIBAL ABRAHAM MD Ot I10 ESSENTIAL (PRIMARY) HYPERTENSION 06/05/2017 ANIBAL ABRAHAM MD Ot K21.9 GASTRO-ESOPHAGEAL REFLUX DISEASE WITHOUT 06/05/2017 ANIBAL ABRAHAM MD Ot Z79.899 OTHER COUNTER WAITRESS/WAITER (CURRENT) DRUG THERAPY 06/05/2017 ANIBAL ABRAHAM MD Ot E03.9 HYPOTHYROIDISM, UNSPECIFIED 06/05/2017 ANIBAL ABRAHAM MD Ot E86.0 DEHYDRATION 06/05/2017 ANIBAL ABRAHAM MD Ot E87.5 HYPERKALEMIA 06/05/2017 ANIBAL ABRAHAM MD Ot F17.210 NICOTINE DEPENDENCE, CIGARETTES, UNCOMPL 06/05/2017 ANIBAL ABRAHAM MD Ot I10 ESSENTIAL (PRIMARY) HYPERTENSION 06/05/2017 ANIBAL ABRAHAM MD Ot K21.9 GASTRO-ESOPHAGEAL REFLUX DISEASE WITHOUT 06/05/2017 ANIBAL ABRAHAM MD Ot Z79.899 OTHER COUNTER WAITRESS/WAITER (CURRENT) DRUG THERAPY 07/01/2017 JUAN CARLOS PEOPLES, LEDA Solares Ot Z29.8 ENCOUNTER FOR OTHER SPECIFIED PROPHYLACT 07/01/2017 LEDA RANGEL MD Ot Z29.8 ENCOUNTER FOR OTHER SPECIFIED PROPHYLACT 07/01/2017 GUSTABO WALTERS MD Ot N32.81 OVERACTIVE BLADDER 07/01/2017 GUSTABO WALTERS MD Ot N36.42 INTRINSIC SPHINCTER DEFICIENCY (ISD) 07/01/2017 GUSTABO WALTERS MD Ot 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 07/01/2017 GUSTABO WALTERS MD Ot Z01.818 ENCOUNTER FOR OTHER PREPROCEDURAL EXAMIN 07/02/2017 GUSTABO WALTERS MD Ot I10 ESSENTIAL (PRIMARY) HYPERTENSION 07/02/2017 GUSTABO WALTERS MD Ot N32.81 OVERACTIVE BLADDER 07/02/2017 GUSTABO WALTERS MD, Ot N36.42 INTRINSIC SPHINCTER DEFICIENCY (ISD) 07/02/2017 GUSTABO WALTERS MD Ot 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 07/02/2017 GUSTABO WALTERS MD Ot Z79.899 OTHER COUNTER WAITRESS/WAITER (CURRENT) DRUG THERAPY 07/02/2017 GUSTABO WALTERS MD Ot Z87.891 PERSONAL HISTORY OF NICOTINE DEPENDENCE 07/02/2017 SELENA PEOPLES, GUSTABO Solares Ot Z88.0 ALLERGY STATUS TO PENICILLIN 07/02/2017 SELENA PEOPLES, GUSTABO A Ot Z88.2 ALLERGY STATUS TO SULFONAMIDES STATUS 07/06/2017 SELENA PEOPLES, GSUTABO Solares Ot I10 ESSENTIAL (PRIMARY) HYPERTENSION 07/06/2017 SELENA PEOPLES, GUSTABO Solares Ot N32.81 OVERACTIVE BLADDER 07/06/2017 SELENA PEOPLES, GUSTAOB A Ot N36.42 INTRINSIC SPHINCTER DEFICIENCY (ISD) 07/06/2017 GUSTABO WALTERS MD Ot 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 07/06/2017 GUSTABO WALTERS MD Ot Z79.899 OTHER CORRECTION (CURRENT) DRUG THERAPY 07/06/2017 GUSTABO WALTERS MD Ot Z87.891 PERSONAL HISTORY OF NICOTINE DEPENDENCE 07/06/2017 GUSTABO WALTERS MD Ot Z88.0 ALLERGY STATUS TO PENICILLIN 07/06/2017 GUSTABO WALTERS MD A Ot Z88.2 ALLERGY STATUS TO SULFONAMIDES STATUS 07/06/2017 GUSTABO WALTERS MD Ot I10 ESSENTIAL (PRIMARY) HYPERTENSION 07/06/2017 GUSTABO WALTERS MD Ot N32.81 OVERACTIVE BLADDER 07/06/2017 SELENA PEOPLES, GUSTABO A Ot N36.42 INTRINSIC SPHINCTER DEFICIENCY (ISD) 07/06/2017 GUSTABO WALTERS MD A Ot 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 07/06/2017 GUSTABO WALTERS MD A Ot Z79.899 OTHER CORRECTION (CURRENT) DRUG THERAPY 07/06/2017 GUSTABO WALTERS MD A Ot Z87.891 PERSONAL HISTORY OF NICOTINE DEPENDENCE 07/06/2017 GUSTABO WALTERS MD Ot Z88.0 ALLERGY STATUS TO PENICILLIN 07/06/2017 GUSTABO WALTERS MD A Ot Z88.2 ALLERGY STATUS TO SULFONAMIDES STATUS 07/10/2017 GUSTABO WALTERS MD Ot I10 ESSENTIAL (PRIMARY) HYPERTENSION 07/10/2017 SELENA PEOPLES, GUSTABO Solares Ot N32.81 OVERACTIVE BLADDER 07/10/2017 GUSTABO WALTERS MD, Ot N36.42 INTRINSIC SPHINCTER DEFICIENCY (ISD) 07/10/2017 GUSTABO WALTERS MD, Ot 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 07/10/2017 GUSTABO WALTERS MD, Ot Z79.899 OTHER CORRECTION (CURRENT) DRUG THERAPY 07/10/2017 GUSTABO WALTERS MD, Ot Z87.891 PERSONAL HISTORY OF NICOTINE DEPENDENCE 07/10/2017 GUSTABO WALTERS MD, Ot Z88.0 ALLERGY STATUS TO PENICILLIN 07/10/2017 GUSTABO WALTERS MD, Ot Z88.2 ALLERGY STATUS TO SULFONAMIDES STATUS Procedures Code Description [place] [address] Intravenous infusion, for therapy, proph TATIANA BURGESS 12/02/2016 33799 Emergency department visit for the evalu TATIANA [...] [id number] Pathologist review of blood test by comment - 06/11/16 09:58 Blood leukocytes automated count [...] 90 Blood reticulocytes/100 erythrocytes 1.66 % 0.50-2.40 [id number] - 07/21/16 09:33 Serum or plasma urea nitrogen measurement (mass/volume) 39 mg/dL 7-18 Serum or plasma creatinine measurement (mass/volume) 1.09 mg/dL 0.60-1.30 Serum or plasma urea nitrogen/creatinine mass ratio 36 [facility] Serum or plasma creatinine measurement with calculation of estimated glomerular filtration rate 48 [facility] Comprehensive metabolic panel - 09/03/16 12:44 Serum [...] or plasma urea nitrogen/creatinine mass ratio 27 [facility] Serum or plasma creatinine measurement with calculation of estimated glomerular filtration rate 51 [facility] Serum or plasma glucose measurement (mass/volume) 102 [...] hour urine protein fractions interpretation by electrophoresis [id number] Serum protein electrophoresis - 09/03/16 12:44 Serum or plasma protein measurement (mass/volume) 6.6 % 6.1-8.1 Pathology consultation and report SEE PATH REPORT NRG Serum or plasma protein fractions interpretation by electrophoresis [id number] NRG 25-hydroxyvitamin D measurement - 09/03/16 12:44 25-hydroxy vitamin D measurement 45 % 30-100 TYPE AND SCREEN CONVERTABLE TO XM - 12/02/16 19:21 ABO/Rh A POS NRG Antibody Screen NEG NRG Specimen Or Xm Expiration 12/05/2016 NRG CBCA - 12/02/16 19:38 WBC Count 9.1 X1000/cmm 4.0-10.5 RBC Count 2.87 [id number]/cmm 4.00-5.40 Hemoglobin 7.4 g/dL 12.0-16.0 Hematocrit 23.6 [...] NEG Ketones, UA TRACE mg/dL NEG Specific Campbell, UA 1.025 1.003-1.030 Blood, UA LARGE NEG [...] URINE NRG Special Requests NONE Reflexed from [id number] NRG [place] Count >100,000 CFU/ML NRG Culture JASE ALBICANS MANY NRG Report Status FINAL 12/05/2016 NRG Organism CANALB NRG Culture Status NRG METHOD LUCIANO - 12/02/16 20:21 AMPICILLIN >=32 RESISTANT NRG CIPROFLOXACIN >=8 RESISTANT NRG LEVOFLOXACIN >=8 RESISTANT NRG NITROFURANTOIN 128 RESISTANT NRG BENZYLPENICILLIN >=64 RESISTANT NRG TETRACYCLINE <=1 SUSCEPTIBLE NRG VANCOMYCIN <=0.5 SUSCEPTIBLE NRG BETA LACTAMASE NEGATIVE NRG BASIC METABOLIC PANEL - 12/11/16 06:22 Sodium 137 mmol/L 135-145 Potassium 3.0 mmol/L 3.6-5.0 Chloride 97 mmol/L 101-111 Carbon Dioxide, Total 27 mmol/L 21-31 Glucose Level 110 mg/dL 70-100 BUN 14 mg/dL 6-20 Creatinine 0.9 mg/dL 0.5-1.2 Calcium 8.6 mg/dL 8.5-10.5 Calculated GFR 59.5 mL/min/1.73sq >60 Anion Gap 13 mmol/L [facility] BASIC METABOLIC PANEL - 12/13/16 05:42 Sodium 139 mmol/L 135-145 Potassium 3.5 mmol/L 3.6-5.0 Chloride 99 mmol/L 101-111 Carbon Dioxide, Total 27 mmol/L 21-31 Glucose Level 101 mg/dL 70-100 BUN 17 mg/dL 6-20 Creatinine 0.8 mg/dL 0.5-1.2 Calcium 8.5 mg/dL 8.5-10.5 Calculated GFR >60.0 mL/min/1.73sq >60 Anion Gap 13 mmol/L [facility] MAGNESIUM - 12/13/16 05:42 Magnesium 1.8 mg/dL 1.8-2.5 BASIC METABOLIC PANEL - 12/14/16 06:05 Sodium 138 mmol/L 135-145 Potassium 3.7 mmol/L 3.6-5.0 Chloride 100 mmol/L 101-111 Carbon Dioxide, Total 26 mmol/L 21-31 Glucose Level 114 mg/dL 70-100 BUN 19 mg/dL 6-20 Creatinine 0.9 mg/dL 0.5-1.2 Calcium 8.7 mg/dL 8.5-10.5 Calculated GFR 59.5 mL/min/1.73sq >60 Anion Gap 12 mmol/L [facility] CREATINE KINASE (CPK) - 12/14/16 06:05 Creatine Kinase 69 U/L 22-269 URINALYSIS, CULTURE IF INDICATED - 12/14/16 19:54 Color, UA LIGHT YELLOW YELL Clarity, Urine TURBID Clear Glucose, Urine NEGATIVE mg/dL NEG Bilirubin, UA NEGATIVE NEG Ketones, UA NEGATIVE mg/dL NEG Specific Campbell, UA >1.030 1.003-1.030 Blood, UA LARGE NEG [...] FOR CULTURE NOCULT Specimen Description URINE, CATHETERIZED NRG URINE CULTURE - 12/14/16 19:54 Specimen Description URINE NRG Special Requests NONE Reflexed from [id number] NRG [place] Count 50,000 CFU/ML NRG Culture JASE ALBICANS NRG Report Status FINAL 12/16/2016 NRG Organism CANALB NRG Culture Status NRG CREATINE KINASE (CPK) - 12/18/16 05:51 Creatine Kinase 295 U/L COMPREHENSIVE METABOLIC PANEL - 12/18/16 05:51 Sodium [...] 52.7 mL/min/1.73sq >60 Anion Gap 12 mmol/L [facility] BASIC METABOLIC PANEL - 12/20/16 06:28 Sodium 131 mmol/L 135-145 Potassium 4.7 mmol/L 3.6-5.0 Chloride 95 mmol/L 101-111 Carbon Dioxide, Total 25 mmol/L 21-31 Glucose Level 114 mg/dL 70-100 BUN 31 mg/dL 6-20 Creatinine 1.2 mg/dL 0.5-1.2 Calcium 9.0 mg/dL 8.5-10.5 Calculated GFR 42.7 mL/min/1.73sq >60 Anion Gap 11 mmol/L [facility] CREATINE KINASE (CPK) - 12/20/16 06:28 Creatine Kinase 617 U/L BASIC METABOLIC PANEL - 12/22/16 11:13 Sodium 136 mmol/L 135-145 Potassium 4.6 mmol/L 3.6-5.0 Chloride 98 mmol/L 101-111 Carbon Dioxide, Total 22 mmol/L 21-31 Glucose Level 183 mg/dL 70-100 BUN 38 mg/dL 6-20 Creatinine 1.2 mg/dL 0.5-1.2 Calcium 9.3 mg/dL 8.5-10.5 Calculated GFR 42.7 mL/min/1.73sq >60 Anion Gap 16 mmol/L NRG CBCA - 12/22/16 11:14 WBC Count 11.4 X1000/cmm 4.0-10.5 RBC Count 3.94 [id number]/cmm 4.00-5.40 Hemoglobin 10.1 g/dL 12.0-16.0 Hematocrit 31.3 [...] Count 10.4 X1000/cmm 4.0-10.5 RBC Count 3.87 [id number]/cmm 4.00-5.40 Hemoglobin 9.8 g/dL 12.0-16.0 Hematocrit 31.2 [...] 47.2 mL/min/1.73sq >60 Anion Gap 15 mmol/L NR COMPREHENSIVE METABOLIC PANEL - 01/04/17 08:00 Sodium [...] . NRG Bacterial blood culture SEE COMMEN NR Bacterial susceptibility panel - 04/08/17 08:35 Gentamicin [...] test by minimum inhibitory concentration - NR Complete urinalysis with reflex to culture - [...] culture - 04/08/17 09:00 Bacterial urine culture [id number] NRG COLONY COUNT >100,000/ML NRG FTX;REPORTABLE SENSITIVITY REPORTED 04/10 06:40 NRG Bacterial susceptibility panel - 04/08/17 09:00 Gentamicin [...] test by minimum inhibitory concentration - NRG Bacterial blood culture - 04/08/17 09:14 Bacterial [...] RESULTS NEGATIVE FOR ANTIGEN AND TOXIN A/B [facility] Bacterial urine culture - 04/13/17 10:18 URINE CULTURE RESULTS <10,000/ML [facility] Complete blood count (CBC) with automated white [...] plasma calcium measurement (mass/volume) 8.2 mg/dL 8.5-10.1 Methicillin resistant Staphylococcus aureus (MRSA) screening culture - 13:43 Methicillin resistant Staphylococcus aureus (MRSA) screening culture NEG NRG Encounters ACCT No. Visit Date/Time Discharge Status Pt. Type Provider Facility Loc./Unit Complaint [id number] 06/30/2017 06:28:00 07/02/2017 12:00:00 DIS Outpatient GUSTABO WALTERS MD [facility] SEVERE MIXED INCONTINENCE ,OVERACTIVE BLADDER [id number] 06/29/2017 13:10:00 06/29/2017 13:45:00 DIS Outpatient GUSTABO WALETRS MD [facility] PREOP SEVERE MIXED INCONTINENCE, OVERACTIVE BLADDER [id number] 06/24/2017 00:14:00 06/24/2017 23:59:59 CLS Preadmit LEDA RANGEL MD [facility] CR3 WELLNESS [id number] 05/28/2017 17:00:00 06/23/2017 00:01:00 DIS Outpatient LEDA RANGEL MD [facility] CR3 WELLNESS [id number] 06/04/2017 15:13:00 06/05/2017 13:35:00 DIS Inpatient JARAD PEOPLES, ANIBAL Perales [facility] 4TH ARF. [id number] 04/08/2017 09:52:00 04/14/2017 10:45:00 DIS Inpatient TARAH KUMARI DO [facility] 4TH SEPSIS;UTI [id number] 09/03/2016 12:21:00 09/03/2016 23:59:59 CLS Outpatient GRACIA JULIOCESAR Castro [facility] LAB M81.0 [id number] 07/21/2016 09:22:00 07/21/2016 23:59:59 CLS Outpatient GUSTABO WALTERS MD [facility] RAD RECURRENT UTI [id number] 07/21/2016 09:17:00 07/21/2016 23:59:59 CLS Outpatient LEDA RANGEL MD [facility] CARD BACK PAIN [id number] 06/18/2016 08:55:00 06/18/2016 23:59:59 CLS Outpatient NICHOLAS MEDINA APRN [facility] RAD M81.0 [id number] 06/11/2016 09:45:00 06/11/2016 23:59:59 CLS Outpatient LEDA RANGEL MD [facility] LAB ELEVATED WBS [id number] 05/18/2016 09:35:00 05/18/2016 23:59:59 CLS Outpatient NICHOLAS MEDINA APRN [facility] CARD CHEST HEAVINESS [id number] 07/31/2015 14:30:00 07/31/2015 15:49:00 DIS Outpatient STEVE WALL [facility] REHAB [id number] 01/31/2014 14:17:00 01/31/2014 23:59:59 CLS Outpatient LEDA RANGEL MD [facility] RAD [id number] 08/22/2013 11:36:00 08/22/2013 17:25:00 DIS Outpatient [id number] 08/17/2013 07:19:00 08/17/2013 23:59:59 CLS Outpatient [id number] 01/26/2013 09:20:00 01/26/2013 23:59:59 CLS Outpatient [id number] 01/22/2017 00:01:00 02/21/2017 23:59:00 DIS Outpatient Vidya [facility] TP [id number] 12/22/2016 10:05:00 01/21/2017 23:59:00 [facility] [id number] 12/28/2016 11:51:00 01/07/2017 08:19:00 DIS Outpatient Sejal Carver [facility] PTS PTS [id number] 12/10/2016 13:40:00 12/21/2016 06:35:00 DIS Inpatient Yvonne [facility] UTI ANEMIA [id number] 12/02/2016 18:33:00 12/02/2016 23:13:00 DIS Emergency [facility] Medical [id number] 12/22/2016 00:00:00 Document Registration 0000 10/09/2016 13:53:57 10/09/2016 23:59:59 CLS Outpatient [id number] 01/01/2017 13:03:00 01/01/2017 23:59:59 CLS Outpatient [facility] RIM [id number] 12/30/2016 14:46:00 12/30/2016 23:59:59 CLS Outpatient [facility] RIM [id number] 12/25/2016 14:46:00 12/25/2016 23:59:59 CLS Outpatient [facility] RIM [id number] 12/22/2016 09:46:00 12/22/2016 23:59:59 CLS Outpatient [facility] RIM [id number] 12/21/2016 17:15:00 12/21/2016 23:59:59 CLS Outpatient [facility] RIM [id number] 12/02/2016 16:16:00 12/02/2016 23:59:59 CLS Outpatient [facility] RIM
[2017-08-08 18:56] LABS: BASOPHILS % (AUTO) 0 % (0-10); EOSINOPHILS # (AUTO) 0.1 10^3/uL (0.0-0.3); EOSINOPHILS % (AUTO) 1 % (0-10); HEMATOCRIT 39 % (35-52); LYMPHOCYTES # (AUTO) 0.6 X 10^3 (1.0-4.0); LYMPHOCYTES % (AUTO) 5 % (12-44); MEAN CORPUSCULAR HEMOGLOBIN 29 PG (25-34); MEAN CORPUSCULAR HGB CONC 33 G/DL (32-36); MEAN CORPUSCULAR VOLUME 87 FL (80-99); MEAN PLATELET VOLUME 11.2 FL (7.4-10.4); MONOCYTES # (AUTO) 1.5 X 10^3 (0.0-1.0); MONOCYTES % (AUTO) 12 % (0-12); NEUTROPHILS # (AUTO) 10.3 X 10^3 (1.8-7.8); NEUTROPHILS % (AUTO) 83 % (42-75); PLATELET COUNT 221 10^3/uL (130-400); RED BLOOD COUNT 4.48 10^6/uL (4.35-5.85); RED CELL DISTRIBUTION WIDTH 15.8 % (10.0-14.5); WHITE BLOOD COUNT 12.5 10^3/uL (4.3-11.0)
[2017-08-08 19:13] LABS: BAND NEUTROPHILS 0 %; BASOPHILS % (MANUAL) 0 %; EOSINOPHILS % (MANUAL) 0 %; LYMPHOCYTES % (MANUAL) 10 %; MONOCYTES % (MANUAL) 10 %; NEUTROPHILS % (MANUAL) 80 %; RBC MORPH NORMAL
[2017-08-08 19:26] LABS: ALBUMIN 4.1 GM/DL (3.2-4.5); BILIRUBIN,TOTAL 0.9 MG/DL (0.1-1.0); CALCIUM 9.6 MG/DL (8.5-10.1); CREATININE SERUM 1.49 MG/DL (0.60-1.30); POTASSIUM 5.9 MMOL/L (3.6-5.0); TOTAL PROTEIN 7.3 GM/DL (6.4-8.2)
[2017-08-08 20:05] LABS: BILIRUBIN,URINE NEGATIVE (NEGATIVE); CLARITY,URINE CLEAR; COLOR,URINE YELLOW; GLUCOSE, URINE (UA) NEGATIVE (NEGATIVE); KETONES,URINE NEGATIVE (NEGATIVE); LEUKOCYTE ESTERASE ,URINE NEGATIVE (NEGATIVE); NITRITE,URINE NEGATIVE (NEGATIVE); PH,URINE 5 (5-9); PROTEIN,URINE 2+ (NEGATIVE); UROBILINOGEN,URINE NORMAL (NORMAL)
[2017-08-08 20:29] LABS: BACTERIA,URINE NEGATIVE /HPF; WBC,URINE RARE /HPF
[2017-08-08 21:30] VITALS: BP 126/67
== END 2017-08-08 21:31 | disposition home or self-care (01) ==
LOC: EDUNIT# 18:07 → ER 18:09
DX: R32 Unspecified urinary incontinence (principal); R50.9 Fever, unspecified; F41.9 Anxiety disorder, unspecified; I10 Essential (primary) hypertension; K21.9 Gastro-esophageal reflux disease without esophagitis; E03.9 Hypothyroidism, unspecified; Z82.49 Family history of ischemic heart disease and other diseases of the circulatory system; Z80.0 Family history of malignant neoplasm of digestive organs; Z80.3 Family history of malignant neoplasm of breast; Z87.440 Personal history of urinary (tract) infections; Z87.19 Personal history of other diseases of the digestive system; Z87.448 Personal history of other diseases of urinary system; Z88.0 Allergy status to penicillin; Z88.2 Allergy status to sulfonamides; Z88.8 Allergy status to other drugs, medicaments and biological substances; Z87.891 Personal history of nicotine dependence; Z90.710 Acquired absence of both cervix and uterus; Z90.89 Acquired absence of other organs
CPT/HCPCS: 36415; 80053; 81000; 85007; 85027; 94640; 96360; 96361

== ENCOUNTER 2017-11-24 07:14 | Outpatient (RCR) | payer MEDICARE, BC | END 2017-11-25 | disposition home or self-care (01) | LOC: CR3 07:14 | PROVIDERS: ATTEND Family Medicine | DX: Z29.8 Encounter for other specified prophylactic measures (principal) ==

== ENCOUNTER 2017-12-24 08:42 | Outpatient (RCR) | payer MEDICARE, BC | END 2017-12-25 | disposition home or self-care (01) | LOC: CR3 08:42 | PROVIDERS: ATTEND Family Medicine | DX: Z29.8 Encounter for other specified prophylactic measures (principal) ==

== ENCOUNTER 2018-01-07 07:59 | Outpatient (RCR) | payer MEDICARE, BC | END 2018-01-26 | disposition home or self-care (01) | LOC: CR3 07:59 | PROVIDERS: ATTEND Family Medicine | DX: Z29.8 Encounter for other specified prophylactic measures (principal) ==

== ENCOUNTER → 2018-03-03 | Outpatient (CLI) | payer MEDICARE, BC ==
--- NOTE | 2018-03-03 11:03 | Diagnostic Imaging Report ---
PROCEDURE: MRI lumbar spine. TECHNIQUE: Multiplanar, multisequence MRI of the lumbar spine was performed without contrast. INDICATION: Low back pain. FINDINGS: Curvature of the lumbar spine is normal. There is minimal retrolisthesis of L1 on L2. The vertebral body heights are well maintained. The marrow signal intensity is unremarkable. No acute compression fracture is identified. No geographic marrow lesion is seen. There is significant degenerative disc disease at all levels of the lumbar spine and lower thoracic spine with disc space narrowing, desiccation and endplate osteophyte formation. The conus is unremarkable at approximately the L1 level. T12-L1: Central canal is widely patent. The neural foramina appear to be patent. L1-2: There is some ligamentous thickening present. There is also broad-based disc/osteophyte complex. However, no significant central canal narrowing is seen. There is some narrowing of the lateral recesses, greater on the left as well as mild bilateral neural foraminal narrowing. L2-3: Broad-based disc/osteophyte complex, ligamentous thickening and facet changes are noted. This does result in moderate central canal stenosis. Bilateral lateral recesses are narrowed. No significant neural foraminal narrowing is seen. L3-4: There are hypertrophic facet changes present. There is mild ligamentous thickening and broad-based disc/osteophyte complex resulting in some trefoil configuration of the thecal sac. There is narrowing of the lateral recesses bilaterally. There is mild bilateral neural foraminal narrowing. L4-5: Broad-based disc/osteophyte complex, ligamentous thickening and facet changes result in moderate trefoil stenosis to the canal. There is significant bilateral lateral recess narrowing and moderate bilateral neural foraminal stenosis. L5-S1: Hypertrophic facet changes are present. There is a broad-based disc/osteophyte complex indenting the ventral thecal sac and resulting in mild narrowing of the canal. There is narrowing of the lateral recesses bilaterally. There is moderate bilateral neural foraminal stenosis. The paraspinous tissues are unremarkable apart from a small cortical cyst involving the left kidney. IMPRESSION: 1. Significant multilevel lumbar spondylosis and facet arthropathy with multilevel central canal, lateral recess and neural foraminal stenosis. No acute compression fracture is identified. Dictated by: Dictated on workstation # [id number]
== END ==
LOC: RAD 09:51
PROVIDERS: ATTEND Internal Medicine
DX: M47.816 Spondylosis without myelopathy or radiculopathy, lumbar region (principal); M46.86 Other specified inflammatory spondylopathies, lumbar region; M48.061 Spinal stenosis, lumbar region without neurogenic claudication; M81.0 Age-related osteoporosis without current pathological fracture
CPT/HCPCS: 72148

== ENCOUNTER 2018-04-22 08:01 | Outpatient (RCR) | payer BC, MEDICARE | END 2018-04-28 | disposition home or self-care (01) | LOC: CR3 08:01 | PROVIDERS: ATTEND Family Medicine | DX: Z29.8 Encounter for other specified prophylactic measures (principal) ==

== ENCOUNTER 2018-11-17 08:26 | Outpatient (RCR) | payer BC | END 2018-11-17 12:26 | disposition home or self-care (01) | PROVIDERS: ATTEND Nurse Practitioner | DX: M47.816 Spondylosis without myelopathy or radiculopathy, lumbar region (principal) ==

== ENCOUNTER 2018-12-01 07:42 | Outpatient (RCR) | payer BC, MEDICARE ==
[2018-11-24 16:30] VITALS: BP 116/64
[2018-11-24] MEDS: CEFEPIME 1,000 MG/SWFI 10 ML IV PUSH IV SCH ×2 (17:24)
[2018-11-25 07:55] VITALS: BP 118/56
[2018-11-25] MEDS: CEFEPIME 1,000 MG/SWFI 10 ML IV PUSH IV SCH ×4 (08:05→19:43)
[2018-11-25 19:30] VITALS: BP 101/58
[2018-11-26] MEDS: CEFEPIME 1,000 MG/SWFI 10 ML IV PUSH IV SCH ×4 (08:36→19:30)
[2018-11-26 08:53] VITALS: BP 90/55
[2018-11-26 19:30] VITALS: BP 105/53
[2018-11-27] MEDS: CEFEPIME 1,000 MG/SWFI 10 ML IV PUSH IV SCH ×4 (08:11→19:53)
[2018-11-27 08:15] VITALS: BP 105/56
[2018-11-27 19:30] VITALS: BP 107/62
[2018-11-28 07:42] VITALS: BP 112/76
[2018-11-28] MEDS: CEFEPIME 1,000 MG/SWFI 10 ML IV PUSH IV SCH ×4 (07:51→19:50)
[2018-11-28 19:50] VITALS: BP 99/64
[2018-11-29 07:41] VITALS: BP 115/57
[2018-11-29] MEDS: CEFEPIME 1,000 MG/SWFI 10 ML IV PUSH IV SCH ×4 (07:56→19:49)
[2018-11-29 19:58] VITALS: BP 112/61
[2018-11-30] MEDS: CEFEPIME 1,000 MG/SWFI 10 ML IV PUSH IV SCH ×4 (07:50→18:45)
[2018-11-30 08:17] VITALS: BP 125/66
[2018-11-30 18:35] VITALS: BP 121/59
[2018-11-30 18:45] VITALS: BP 121/59
[~2018-12-01] VITALS: Ht 159 cm; Wt 63.2 kg
[2018-12-01] MEDS: CEFEPIME 1,000 MG/SWFI 10 ML IV PUSH IV SCH ×2 (07:49)
[2018-12-01 07:55] VITALS: BP 114/64
== END 2019-02-22 | disposition home or self-care (01) ==
LOC: SDC 07:42
PROVIDERS: ATTEND Nurse Practitioner
DX: N39.0 Urinary tract infection, site not specified (principal)
CPT/HCPCS: 96365; 96374

== ENCOUNTER 2021-05-21 16:35 | Outpatient (RCR) | payer MEDICARE ==
[~2021-05-21 16:35] MED LIST changes: -ACYC400T PO; +ACYC400T21 PO; -METO-387 PO; +MTP25TSR PO; -PANT40TA3 PO; +PANT40TA52 PO
== END 2021-05-22 | disposition home or self-care (01) ==
LOC: LAB 16:35
PROVIDERS: ATTEND Internal Medicine
DX: R19.7 Diarrhea, unspecified (principal)

== ENCOUNTER → 2021-07-04 | Outpatient (CLI) | payer MEDICARE ==
--- NOTE | 2021-07-04 11:53 | Diagnostic Imaging Report ---
PROCEDURE: US Bilateral lower extremity arterial. TECHNIQUE: Multiple real-time grayscale images are obtained through both lower extremity arterial systems with color Doppler imaging and color Doppler spectral analysis. INDICATION: Peripheral arterial occlusive disease. Hypertension. COMPARISON: None available FINDINGS: Right lower extremity: Color Doppler imaging shows patency of the common femoral, proximal deep femoral, superficial femoral, popliteal, posterior tibial and dorsalis pedis artery. Triphasic waveforms are present in the common and proximal superficial femoral arteries. However, from the distal superficial femoral artery through the lower leg, all the waveforms are monophasic and have low velocity. No site of occlusion is detected on this exam. Left lower extremity: Color Doppler imaging shows patency at the common femoral, superficial femoral, popliteal, posterior tibial, anterior tibial and dorsalis pedis arteries. Calcified plaques are scattered throughout the lower extremity arteries. However, there are no elevated peak systolic velocities that would indicate hemodynamically significant stenosis. There is a mixture of triphasic and biphasic waveforms throughout the left lower extremity. BRAN: Not performed. IMPRESSION: 1. While there is no discrete high-grade stenosis or occlusion in the right superficial femoral artery on this exam, the presence of low velocity and monophasic waveforms in the lower leg suggest a significant stenosis within the superficial femoral artery. Consider CTA runoff of the lower extremities for further assessment. 2. No left lower extremity hemodynamically significant stenosis. Dictated by: Dictated on workstation # [id number]
== END ==
LOC: RAD 09:00
PROVIDERS: ATTEND Internal Medicine
DX: I73.9 Peripheral vascular disease, unspecified (principal); I10 Essential (primary) hypertension
CPT/HCPCS: 93925

== ENCOUNTER → 2021-07-28 | Outpatient (CLI) | payer MEDICARE ==
[~2021-07-28] MED LIST changes: +CATHETER FLUSH 10 ML SYR IV PRN; +HOLD METFORMIN - RECEIVED CONTRAST 20 ML VIAL IV SCH; +IOHEXOL 350 MG/ML 100 ML (OMNIPAQUE 350) VIAL IV ONE; +NS 100 ML (IVPB) BAG IV ONE
[2021-07-28 12:01] LABS: CREATININE SERUM 1.15 MG/DL (0.60-1.30)
--- NOTE | 2021-07-28 14:54 | Diagnostic Imaging Report ---
INDICATION: Peripheral vascular disease, preop for hammertoe surgery. TECHNIQUE: CTA of the abdomen and pelvis and lower extremities performed with IV contrast bolus and axial slices and 3-D reconstructions. Dose reduction protocol was used. COMPARISON: There is no prior study for comparison. FINDINGS: Visualized portions of the lung bases are clear. There were no pleural fluid collections. There is no free intraperitoneal air. Liver and spleen appear normal. The adrenals and pancreas and kidneys appear unremarkable. There is no retroperitoneal mass or adenopathy. There is no ascites or abnormal fluid collection. There is a suprapubic catheter in the bladder, and the bladder is decompressed. Visualized bowel loops are unremarkable. CTA images demonstrate the abdominal aorta to be patent with mild atherosclerotic plaquing. The celiac trunk and SMA are patent and without stenosis. The renal arteries are patent bilaterally and without stenosis. The inferior mesenteric artery is patent. There is eccentric calcified plaquing in the common iliac arteries on both sides without significant stenosis. The internal iliac arteries and external iliac arteries are patent with mild plaquing. The common femoral arteries and femoral bifurcations appear patent. The superficial femoral arteries are patent with scattered areas of mild plaquing bilaterally. There is no high-grade SFA stenosis. On the left side, the popliteal artery shows eccentric plaquing but no significant stenosis. On the right side, the popliteal artery is occluded above the knee level with reconstitution distally via collaterals. Tibial vessels appear patent in the upper calf but are not well seen below this point; this is probably secondary to bolus timing. IMPRESSION: CTA demonstrates atherosclerotic plaquing of the aorta and iliac vessels without significant aortoiliac stenoses. Common femoral arteries and SFAs are patent on both sides. There is occlusion of the right popliteal artery superiorly, just beyond the adductor canal with refilling more distally via collaterals. The left SFA and popliteal artery are patent. Tibial vessels are poorly seen, but this appears to be secondary to bolus timing. Dictated by: Dictated on workstation # [id number]
== END ==
LOC: RAD 13:15
PROVIDERS: ATTEND Internal Medicine
DX: Z01.818 Encounter for other preprocedural examination (principal); I74.09 Other arterial embolism and thrombosis of abdominal aorta
CPT/HCPCS: 36415; 75635; 82565; 84520